=== PATIENT | female | born 1970 | race African-American/Black ===

== ENCOUNTER 2017-04-13 14:01 | Emergency (ER) | payer MEDICARE, MEDICAID ==
[~2017-04-13] VITALS: Ht 162.6 cm; Wt 72.6 kg
[~2017-04-13 14:01] MED LIST: ACETAMINOPHEN650 M2 GT; ATIVAN2 MG GT; COUMADIN7.5 MG GT; LACTULOSE20 GM/301 GT; MULTI-DELYN237 ML GT; OLANZAPINE10 MG GT; SERTRALINE HCL25 MG GT; TYLENOL325 MG ORAL; UTI-STAT L3875 MG/31 GT; ZYPREXA2.5 MG GT; ZYPREXA5 MG ORAL
[2017-04-13] MEDS ORDERED: Sodium Chloride 500ML 500 ML IV ONE (14:12)
[2017-04-13 15:05] VITALS: BP 108/67
[2017-04-13] MEDS ORDERED: D5 1/2NS 1,000 ML IV SCH (15:48)
[2017-04-13 15:49] LABS: BASOPHILS % (AUTO) 1.3 % (0.0-2.0); EOSINOPHILS % (AUTO) 11.5 % (0.0-3.0); HEMATOCRIT 39.1 % (37.0-47.0); HEMOGLOBIN 12.1 G/DL (12.0-16.0); LYMPHOCYTES % (AUTO) 21.6 % (20.0-45.0); MEAN CORPUSCULAR VOLUME 83 FL (80-99); MONOCYTES % (AUTO) 5.4 % (1.0-10.0); NEUTROPHILS % (AUTO) 60.3 % (45.0-75.0); PLATELET COUNT 297 K/UL (150-450); RED BLOOD COUNT 4.73 M/UL (4.20-5.40); RED CELL DISTRIBUTION WIDTH 13.9 % (11.6-14.8); WHITE BLOOD COUNT 8.2 K/UL (4.8-10.8)
[2017-04-13] MEDS ORDERED: LORazepam Inj 2mg/ml 1ml IV PRN (16:00)
[2017-04-13 16:03] LABS: ANION GAP 6 mmol/L (5-15); BLOOD UREA NITROGEN 11 mg/dL (7-18); CALCIUM 8.8 MG/DL (8.5-10.1); CARBON DIOXIDE 26 MMOL/L (21-32); CHLORIDE 104 MMOL/L (98-107); CREATININE 0.8 MG/DL (0.55-1.30); POTASSIUM 3.9 MMOL/L (3.5-5.1); SODIUM 136 MMOL/L (136-145)
[2017-04-13 16:09] LABS: ALANINE AMINOTRANSFERASE 23 U/L (12-78); ALBUMIN 3.1 G/DL (3.4-5.0); ALBUMIN/GLOBULIN RATIO 0.7 (1.0-2.7); ALKALINE PHOSPHATASE 73 U/L (46-116); ASPARTATE AMINO TRANSFERASE 14 U/L (15-37); BILIRUBIN,TOTAL 0.2 MG/DL (0.2-1.0)
--- NOTE | 2017-04-13 16:59 | GI Initial Consult Note ---
Malgorzata Willis N.PBatsheva 04/13/17 1659: History of Present Illness General Date patient seen: Apr 13, 2017 Time patient seen: 16:52 Reason for Hospitalization: Malfunctioning Gastric Tube Referring physician: NATHAN BE Reason for Consultation: GT MALFUNCTION Present Illness HPI BRIEF HISTORY: This is a 46-year-old female from [facility] presents today with GT malfunction and thus we were consulted. Currently, resting in bed and slightly confused. No complaint. NAD. GT assess , unable to flush. Unknown history when PEG was placed. No known history of colonoscopies. No leukocytosis. Hgb stable. Home Meds Reported Medications Olanzapine* (ZYPREXA*) 2.5 Mg Tablet, 2.5 MG GT DAILY, #30 TAB 0 Refills 02/28/14 Acetaminophen (Acetaminophen 8 Hour) 650 Mg Tablet, 650 MG GT Q6H, TAB 02/21/14 Sertraline Hcl* (SERTRALINE HCL*) 25 Mg Tablet, 5 MG GT DAILY, TAB 02/21/14 Multivitamin Liquid* (MULTI-DELYN*) 237 Ml Liquid, 5 ML GT DAILY, ML 02/21/14 Lactulose (LACTULOSE*) 20 Gm/30 Ml Solution, 30 ML GT TID, ML 0 Refills 02/21/14 Lorazepam* (ATIVAN*) 2 Mg Tablet, 2 MG GT Q6HR Y for Agitation, TAB 02/21/14 Med list reviewed/reconciled: Yes Allergies: Coded Allergies: No Known Allergies (Unverified , 02/21/14) Patient History Limited by: medical condition History Provided By: Medical Record PMH Narrative 1. Weakness. 2. Altered mental status. 3. Encephalopathy. 4. Lower extremity weakness. 5. Anemia. Social History: Denies: smoking, alcohol use, drug use, other Review of Systems All Other Systems: limited Physical Exam Vital Signs Date Time Temp Pulse Resp B/P (MAP) Pulse Ox O2 Delivery O2 Flow Rate FiO2 04/13/17 14:02 98.1 76 20 94/62 97 Room Air Labs Laboratory Tests Test 04/13/17 15:39 White Blood Count 8.2 K/UL (4.8-10.8) Red Blood Count 4.73 M/UL (4.20-5.40) Hemoglobin 12.1 G/DL (12.0-16.0) Hematocrit 39.1 % (37.0-47.0) Mean Corpuscular Volume 83 FL (80-99) Mean Corpuscular Hemoglobin 25.6 PG (27.0-31.0) L Mean Corpuscular Hemoglobin Concent 31.0 G/DL (32.0-36.0) L Red Cell Distribution Width 13.9 % (11.6-14.8) Platelet Count 297 K/UL (150-450) Mean Platelet Volume 7.1 FL (6.5-10.1) Neutrophils (%) (Auto) 60.3 % (45.0-75.0) Lymphocytes (%) (Auto) 21.6 % (20.0-45.0) Monocytes (%) (Auto) 5.4 % (1.0-10.0) Eosinophils (%) (Auto) 11.5 % (0.0-3.0) H Basophils (%) (Auto) 1.3 % (0.0-2.0) Prothrombin Time 10.0 SEC (9.30-11.50) Prothromb Time International Ratio 1.0 (0.9-1.1) Activated Partial Thromboplast Time 27 SEC (23-33) Sodium Level 136 MMOL/L (136-145) Potassium Level 3.9 MMOL/L (3.5-5.1) Chloride Level 104 MMOL/L (98-107) Carbon Dioxide Level 26 MMOL/L (21-32) Anion Gap 6 mmol/L (5-15) Blood Urea Nitrogen 11 mg/dL (7-18) Creatinine 0.8 MG/DL (0.55-1.30) Estimat Glomerular Filtration Rate > 60 mL/min (>60) Glucose Level 95 MG/DL (74-106) Calcium Level 8.8 MG/DL (8.5-10.1) Total Bilirubin 0.2 MG/DL (0.2-1.0) Aspartate Amino Transf (AST/SGOT) 14 U/L (15-37) L Alanine Aminotransferase (ALT/SGPT) 23 U/L (12-78) Alkaline Phosphatase 73 U/L (46-116) Total Protein 7.7 G/DL (6.4-8.2) Albumin 3.1 G/DL (3.4-5.0) L Globulin 4.6 g/dL Albumin/Globulin Ratio 0.7 (1.0-2.7) L Lipase 58 U/L (73-393) L General Appearance: well appearing, no apparent distress, alert, other - non verbal Head: normocephalic EENT: normal ENT inspection Neck: supple Respiratory: normal breath sounds, no respiratory distress Gastrointestinal: normal inspection, non tender, soft, gt - changed Rectal: deferred Genitourinary: no CVA tenderness Musculoskeletal: back normal Neurologic: alert, responsive Skin: normal inspection, normal color, no rash, warm/dry Lymphatic: normal inspection, no adenopathy Current Medications Current Medications Medications (Trade) Dose Ordered Sig/Sanju Route PRN Reason Start Time Stop Time Status Last Admin Dose Admin Dextrose (Dextrose 50%) STAT PRN IV Hypoglycemia 04/13/17 16:00 05/13/17 15:59 UNV Dextrose/Sodium Chloride 1,000 ml @ 50 mls/hr Q20H IV 04/13/17 15:48 05/13/17 15:47 UNV Heparin Sodium (Porcine) (Heparin 5000 units/ml) 5,000 units EVERY 12 HOURS SUBQ 04/13/17 21:00 05/13/17 20:59 UNV Lorazepam (Ativan 2mg/ml 1ml) 0.5 mg Q4H PRN IV For Anxiety 04/13/17 16:00 04/20/17 15:59 UNV Olanzapine (ZyPREXA) 2.5 mg DAILY GT 04/14/17 09:00 05/14/17 08:59 UNV Ondansetron HCl (Zofran) 4 mg Q6H PRN IVP Nausea & Vomiting 04/13/17 16:00 05/13/17 15:59 UNV Sertraline HCl (Zoloft) 5 mg DAILY GT 04/14/17 09:00 05/14/17 08:59 UNV Silver Nitrate (Silver Nitrate Applicators) 1 applic ONCE ONCE TOPIC 04/13/17 17:00 04/13/17 17:01 UNV GI: Plan Problems: (1) Gastrostomy tube dysfunction Plan GT changed with 20 fr at bedside in ED. nitrate sticks to cauterize hypergranulation around GT site GT site care daily/prn KUB + Gastrografin to confirm tube placement. okay to dc once confirmed via imaging study. Discussed with Dr. Hunter. Thank you for this patient referral, we will follow. MARQUISE HUNTER 04/14/17 1010: History of Present Illness General Reason for Hospitalization: Malfunctioning Gastric Tube Present Illness Home Meds Reported Medications Olanzapine* (ZYPREXA*) 2.5 Mg Tablet, 2.5 MG GT DAILY, #30 TAB 0 Refills 02/28/14 Acetaminophen (Acetaminophen 8 Hour) 650 Mg Tablet, 650 MG GT Q6H, TAB 02/21/14 Sertraline Hcl* (SERTRALINE HCL*) 25 Mg Tablet, 5 MG GT DAILY, TAB 02/21/14 Multivitamin Liquid* (MULTI-DELYN*) 237 Ml Liquid, 5 ML GT DAILY, ML 02/21/14 Lactulose (LACTULOSE*) 20 Gm/30 Ml Solution, 30 ML GT TID, ML 0 Refills 02/21/14 Lorazepam* (ATIVAN*) 2 Mg Tablet, 2 MG GT Q6HR Y for Agitation, TAB 02/21/14 Allergies: Coded Allergies: No Known Allergies (Unverified , 02/21/14) Patient History Social History Narrative The patient was seen and examined at bedside and all new and available data was reviewed in the patients chart. I agree with the above findings, impression and plan. (Patient seen earlier today. Signature stamp does not reflect patient encounter time.). - MD Alba Marin,[facility] Simon N.P. Apr 13, 2017 16:59 MARQUISE HUNTER Apr 14, 2017 10:10
[2017-04-13] MEDS ORDERED: Silver Nitrate Stick TOPIC ONE (17:00)
[2017-04-13 17:26] VITALS: BP 90/60
--- NOTE | 2017-04-13 17:49 | Emergency Room Report ---
History of Present Illness General Chief Complaint: Malfunctioning Gastric Tube Source: Medical Record Present Illness HPI 46-year-old female presents to ED for evaluation. Per EMS patient noted to have a malfunctioning G-tube. Unable to flush. Noticed by nursing staff today. Patient has encephalopathy. Unable to provide any additional history at this time. No signs of distress upon arrival. No fevers or chills. No nausea or vomiting. No other aggravating relieving factors. No other associated symptoms Allergies: Coded Allergies: No Known Allergies (Unverified , 02/21/14) Patient History Past Medical History: other - encephalopathy Past Surgical History: other - Gtube Pertinent Family History: none Social History: Denies: smoking, alcohol use, drug use Now: No Immunizations: UTD Reviewed Nursing Documentation: PMH: Agreed, PSxH: Agreed Nursing Documentation-PMH Past Medical History: No History, Except For Hx Gastrointestinal Problems: Yes - GASTROSTOMY TUBE PLACEMENT Hx Neurological Problems: Yes - ENCEPHALOPATHY Hx Weakness: Yes Review of Systems All Other Systems: limited Physical Exam Vital Signs Date Time Temp Pulse Resp B/P (MAP) Pulse Ox O2 Delivery O2 Flow Rate FiO2 04/13/17 14:02 98.1 76 20 94/62 97 Room Air Sp02 EP Interpretation: reviewed, normal General Appearance: GCS 15, non-toxic, other - encephalopathy Head: normocephalic Eyes: bilateral eye normal inspection, bilateral eye PERRL ENT: normal ENT inspection Neck: normal inspection Respiratory: chest non-tender, lungs clear, normal breath sounds, speaking full sentences Cardiovascular #1: regular rate, rhythm, no edema Gastrointestinal: normal bowel sounds, non tender, soft, non-distended, no guarding, no rebound, other - Gtube site C/D/I Rectal: deferred Genitourinary: no CVA tenderness Musculoskeletal: normal inspection Neurologic: other - encephalopathy Psychiatric: other - encephalopathy Skin: normal inspection Lymphatic: normal inspection Medical Decision Making Diagnostic Impression: Primary Impression: Malfunction of gastrostomy tube ER Course Hospital Course 46-year-old female presents to ED for G-tube placement. Clinical course Patient placed on stretcher. After initial history and physical I was unable to successfully replaced G-tube myself. Labs were drawn which were unremarkable GI was consulted and they came to change the G-tube at bedside. KUB confirmed G -tube placement Dr Be made aware that G-tube was successfully replaced and patient return to facility Diagnosis - malfunction of G tube stable and discharged back to facility. Followup with PMD. Return to ED if symptoms recur or worsen Labs Test 04/13/17 15:39 White Blood Count 8.2 K/UL (4.8-10.8) Red Blood Count 4.73 M/UL (4.20-5.40) Hemoglobin 12.1 G/DL (12.0-16.0) Hematocrit 39.1 % (37.0-47.0) Mean Corpuscular Volume 83 FL (80-99) Mean Corpuscular Hemoglobin 25.6 PG (27.0-31.0) Mean Corpuscular Hemoglobin Concent 31.0 G/DL (32.0-36.0) Red Cell Distribution Width 13.9 % (11.6-14.8) Platelet Count 297 K/UL (150-450) Mean Platelet Volume 7.1 FL (6.5-10.1) Neutrophils (%) (Auto) 60.3 % (45.0-75.0) Lymphocytes (%) (Auto) 21.6 % (20.0-45.0) Monocytes (%) (Auto) 5.4 % (1.0-10.0) Eosinophils (%) (Auto) 11.5 % (0.0-3.0) Basophils (%) (Auto) 1.3 % (0.0-2.0) Prothrombin Time 10.0 SEC (9.30-11.50) Prothromb Time International Ratio 1.0 (0.9-1.1) Activated Partial Thromboplast Time 27 SEC (23-33) Sodium Level 136 MMOL/L (136-145) Potassium Level 3.9 MMOL/L (3.5-5.1) Chloride Level 104 MMOL/L (98-107) Carbon Dioxide Level 26 MMOL/L (21-32) Anion Gap 6 mmol/L (5-15) Blood Urea Nitrogen 11 mg/dL (7-18) Creatinine 0.8 MG/DL (0.55-1.30) Estimat Glomerular Filtration Rate > 60 mL/min (>60) Glucose Level 95 MG/DL (74-106) Calcium Level 8.8 MG/DL (8.5-10.1) Total Bilirubin 0.2 MG/DL (0.2-1.0) Aspartate Amino Transf (AST/SGOT) 14 U/L (15-37) Alanine Aminotransferase (ALT/SGPT) 23 U/L (12-78) Alkaline Phosphatase 73 U/L (46-116) Total Protein 7.7 G/DL (6.4-8.2) Albumin 3.1 G/DL (3.4-5.0) Globulin 4.6 g/dL Albumin/Globulin Ratio 0.7 (1.0-2.7) Lipase 58 U/L (73-393) Other X-Ray Diagnostic Results Other X-Ray Diagnostic Results : X-Ray ordered: KUB # of Views/Limited Vs Complete: 1 View Indication: Pain EP Interpretation: Yes Interpretation: nonspecific bowel gas, no sbo, other - Gtube in place. no contrast extravasation Impression: Other - Gtube in place Last Vital Signs Date Time Temp Pulse Resp B/P (MAP) Pulse Ox O2 Delivery O2 Flow Rate FiO2 04/13/17 17:26 98.2 73 17 90/60 99 Room Air Status: improved Disposition: XFER SNF Condition: Stable Referrals: NATHAN BE (PCP) Patient Instructions: Gastrostomy Tube Home Guide, Adult KENNETH CENTENO M.D. Apr 13, 2017 17:49
[2017-04-13 19:37] VITALS: BP 128/66
[2017-04-13] MEDS ORDERED: Heparin 5000 units/ml inj SUBQ SCH (21:00)
--- NOTE | 2017-04-13 22:00 | History and Physical Report ---
DATE OF ADMISSION: 04/13/2017 TIME SEEN: 3 p.m. CONSULTANTS: 1. Bora Nolen M.D. 2. Sivan Banks M.D. 3. George Allen M.D. 4. Buzz Stockton M.D. CHIEF COMPLAINT: G-tube malfunction, encephalopathy, weakness, and confusion. BRIEF HISTORY: The patient is a 46-year-old female from [facility] presented with the above-mentioned diagnoses. She has a GJ-tube that we are unable to replace. The patient is in the ER [facility], currently awaiting admission. Currently, calm, slightly confused in bed, and not talking much. PAST MEDICAL HISTORY: Weakness, altered mental status, and bipolar. PAST SURGICAL HISTORY: Unknown. MEDICATIONS: IV fluids now, we will obtain list shortly. ALLERGIES: Denies. SOCIAL HISTORY: No smoking, no alcohol, and no intravenous drug abuse. FAMILY HISTORY: Noncontributory. REVIEW OF SYSTEMS: Unavailable. PHYSICAL EXAMINATION: GENERAL: Calm in bed, refusing to answer questions. VITAL SIGNS: Temperature is 98 degrees, pulse 69, respirations 19, and blood pressure 108/67. CARDIOVASCULAR: No murmur. LUNGS: Poor air exchange. ABDOMEN: Bowel sounds are positive. Nontender and nondistended. EXTREMITIES: No cyanosis, clubbing, or edema. NEUROLOGIC: The patient moves all extremities, slightly weak. LABORATORY DATA: Labs are pending. ASSESSMENT: 1. Gastrostomy tube malfunction. 2. Encephalopathy. 3. Weakness. 4. Altered mental status. PLAN: 1. Continue premedications. 2. OT, PT, and dietary evaluation. 3. CBC and BMP in the morning. 4. Psychiatry evaluation. 5. Dr. Nolen, Dr. Banks, Dr. Allen, and Dr. Stockton to consult. Jose L Mcginnis D.O. DR: HERMINIO JOB#: [id number] CC:
--- NOTE | 2017-04-13 22:00 | History and Physical Report ---
DATE OF ADMISSION: 04/13/2017 TIME SEEN: 3 p.m. CONSULTANTS: 1. Bora Nolen M.D. 2. Sivan Banks M.D. 3. George Allen M.D. 4. Buzz Stockton M.D. CHIEF COMPLAINT: G-tube malfunction, encephalopathy, weakness, and confusion. BRIEF HISTORY: The patient is a 46-year-old female from [facility] presented with the above-mentioned diagnoses. She has a GJ-tube that we are unable to replace. The patient is in the ER [facility], currently awaiting admission. Currently, calm, slightly confused in bed, and not talking much. PAST MEDICAL HISTORY: Weakness, altered mental status, and bipolar. PAST SURGICAL HISTORY: Unknown. MEDICATIONS: IV fluids now, we will obtain list shortly. ALLERGIES: Denies. SOCIAL HISTORY: No smoking, no alcohol, and no intravenous drug abuse. FAMILY HISTORY: Noncontributory. REVIEW OF SYSTEMS: Unavailable. PHYSICAL EXAMINATION: GENERAL: Calm in bed, refusing to answer questions. VITAL SIGNS: Temperature is 98 degrees, pulse 69, respirations 19, and blood pressure 108/67. CARDIOVASCULAR: No murmur. LUNGS: Poor air exchange. ABDOMEN: Bowel sounds are positive. Nontender and nondistended. EXTREMITIES: No cyanosis, clubbing, or edema. NEUROLOGIC: The patient moves all extremities, slightly weak. LABORATORY DATA: Labs are pending. ASSESSMENT: 1. Gastrostomy tube malfunction. 2. Encephalopathy. 3. Weakness. 4. Altered mental status. PLAN: 1. Continue premedications. 2. OT, PT, and dietary evaluation. 3. CBC and BMP in the morning. 4. Psychiatry evaluation. 5. Dr. Nolen, Dr. Banks, Dr. Allen, and Dr. Stockton to consult. Jose L Mcginnis D.O. DR: HERMINIO JOB#: [id number] CC:
--- NOTE | 2017-04-13 22:00 | History and Physical Report ---
DATE OF ADMISSION: 04/13/2017 TIME SEEN: 3 p.m. CONSULTANTS: 1. Bora Nolen M.D. 2. Sivan Banks M.D. 3. George Allen M.D. 4. Buzz Stockton M.D. CHIEF COMPLAINT: G-tube malfunction, encephalopathy, weakness, and confusion. BRIEF HISTORY: The patient is a 46-year-old female from [facility] presented with the above-mentioned diagnoses. She has a GJ-tube that we are unable to replace. The patient is in the ER [facility], currently awaiting admission. Currently, calm, slightly confused in bed, and not talking much. PAST MEDICAL HISTORY: Weakness, altered mental status, and bipolar. PAST SURGICAL HISTORY: Unknown. MEDICATIONS: IV fluids now, we will obtain list shortly. ALLERGIES: Denies. SOCIAL HISTORY: No smoking, no alcohol, and no intravenous drug abuse. FAMILY HISTORY: Noncontributory. REVIEW OF SYSTEMS: Unavailable. PHYSICAL EXAMINATION: GENERAL: Calm in bed, refusing to answer questions. VITAL SIGNS: Temperature is 98 degrees, pulse 69, respirations 19, and blood pressure 108/67. CARDIOVASCULAR: No murmur. LUNGS: Poor air exchange. ABDOMEN: Bowel sounds are positive. Nontender and nondistended. EXTREMITIES: No cyanosis, clubbing, or edema. NEUROLOGIC: The patient moves all extremities, slightly weak. LABORATORY DATA: Labs are pending. ASSESSMENT: 1. Gastrostomy tube malfunction. 2. Encephalopathy. 3. Weakness. 4. Altered mental status. PLAN: 1. Continue premedications. 2. OT, PT, and dietary evaluation. 3. CBC and BMP in the morning. 4. Psychiatry evaluation. 5. Dr. Nolen, Dr. Banks, Dr. Allen, and Dr. Stockton to consult. Jose L Mcginnis D.O. DR: HERMINIO JOB#: [id number] CC:
[2017-04-14] MEDS ORDERED: OLANZapine 2.5mg tab GT SCH (09:00)
[2017-04-14] MEDS ORDERED: Sertraline 50mg tab GT SCH (09:00)
--- NOTE | 2017-04-14 12:05 | Diagnostic Imaging Report ---
Indication: Gastrostomy check Comparison: None Single view of the abdomen obtained Findings: Contrast noted in the stomach. The balloon is in the mid part of the stomach. There is no contrast leak outside of the stomach or duodenum. Impression: Unremarkable gastrostomy
== END 2017-04-13 19:30 ==
LOC: EDBD 14:01 → EMR 14:49 → CANBEDREQ 17:21 → EMR 19:30
DX: K94.23 Gastrostomy malfunction (principal); Y83.3 Surgical operation with formation of external stoma as the cause of abnormal reaction of the patient, or of later complication, without mention of misadventure at the time of the procedure; G93.40 Encephalopathy, unspecified
CPT/HCPCS: 36415; 43760; 74000; 80053; 83690; 85025; 85610; 85730; 86850; 86900; 86901; 96361; 96365; 96366; 96372; 96375; 99284; J7040

== ENCOUNTER 2017-06-16 19:58 | Inpatient (IN) | payer MEDICARE, MEDICAID ==
[~2017-06-16] VITALS: Ht 162.6 cm; Wt 77.1 kg
--- NOTE | 2017-06-16 21:26 | Emergency Room Report ---
History of Present Illness General Chief Complaint: Malfunctioning Gastric Tube Source: Patient, Medical Record, EMS Present Illness HPI 46-year-old female, history of depression, paranoid schizophrenia, here for G- tube replacement. Reportedly patient pulled out her G-tube. Patient is very angry, alert, oriented to person and place, not cooperating with history. Only stating that she does not want you to put it a G tube and that she will pull it out again if it is placed. not providing any other history. Allergies: Coded Allergies: No Known Allergies (Unverified , 02/21/14) Patient History Past Medical History: see triage record Past Surgical History: unable to obtain Pertinent Family History: unable to obtain Now: No Reviewed Nursing Documentation: PMH: Agreed, PSxH: Agreed Nursing Documentation-PMH Past Medical History: No History, Except For Hx Gastrointestinal Problems: Yes - GASTROSTOMY TUBE, DYSPHAGIA, GERD Hx Neurological Problems: Yes - ENCEPHALOPATHY Hx Weakness: Yes Review of Systems All Other Systems: negative except mentioned in HPI Physical Exam Vital Signs Date Time Temp Pulse Resp B/P (MAP) Pulse Ox O2 Delivery O2 Flow Rate FiO2 06/16/17 19:54 99.7 108 20 114/67 97 Room Air Sp02 EP Interpretation: reviewed, normal General Appearance: alert, non-toxic, mild distress Head: normocephalic, atraumatic Eyes: bilateral eye normal inspection, bilateral eye PERRL, bilateral eye EOMI ENT: normal ENT inspection, normal pharynx, normal voice, moist mucus membranes Neck: normal inspection, full range of motion, supple Respiratory: normal inspection, lungs clear, normal breath sounds, no respiratory distress, no retraction, no wheezing, speaking full sentences, chest symmetrical Cardiovascular #1: normal inspection, regular rate, rhythm, no edema, normal capillary refill Cardiovascular #2: 2+ radial (R), 2+ radial (L) Gastrointestinal: other - G tube stoma without g tube in place. nontender abdomen Musculoskeletal: normal inspection, back normal, normal range of motion, non- tender Neurologic: other - awake and alert, moves all four ext spont Psychiatric: depressed affect Skin: normal inspection, normal color, no rash, warm/dry, well hydrated, normal turgor Medical Decision Making Diagnostic Impression: Primary Impression: Malfunction of gastrostomy tube ER Course 46-year-old female here for G-tube replacement DDX: G-tube replacement Plan: G-tube replacement ER course: Patient has been monitored during ED stay, HD stable Patient is refusing a G-tube replacement, states that she will pull it out. Will admit to medicine also refusing labs Disposition: Patient is to be admitted to [facility] D/W hospitalist Dr Be Please note that this Emergency Department Report was dictated using [employer] support worker technology software, occasionally this can lead to erroneous entry secondary to interpretation by the dictation equipment. Last Vital Signs Date Time Temp Pulse Resp B/P (MAP) Pulse Ox O2 Delivery O2 Flow Rate FiO2 06/16/17 19:54 99.7 108 20 114/67 97 Room Air Disposition: ADMITTED INPATIENT Condition: Serious Referrals: NATHAN BE (PCP) Eliot Jj M.D. Jun 16, 2017 21:26
[2017-06-16 21:49] VITALS: BP 118/70
[2017-06-16] MEDS ORDERED: Morphine Sulfate 2mg/ml Inj IVP PRN (22:00)
[2017-06-16] MEDS ORDERED: Mylanta II UD 30ml ORAL PRN (22:00)
[2017-06-16] MEDS ORDERED: LORazepam Inj 2mg/ml 1ml IV PRN (22:00)
[2017-06-16] MEDS ORDERED: Miralax 17gm pkt ORAL PRN (22:00)
[2017-06-16] MEDS ORDERED: Nitroglycerin Subl 0.4mg tab SL PRN (22:00)
[2017-06-17] MEDS: D5 1/2NS 1,000 ML IV SCH ×2 (01:52→15:12)
[2017-06-17] MEDS: Pantoprazole Inj IV SCH (09:00)
[2017-06-17] MEDS ORDERED: OLANZapine 2.5mg tab GT SCH (09:00)
[2017-06-17] MEDS: Heparin 5000 units/ml inj SUBQ SCH ×2 (09:00→20:44)
--- NOTE | 2017-06-17 10:37 | Consultation ---
History of Present Illness General Date patient seen: Jun 17, 2017 Chief Complaint: Malfunctioning Gastric Tube Reason for Consultation: inpatient management Present Illness HPI 46-year-old female with hx of depression, paranoid schizophrenia,muliple sclerosis, brought in for G-tube replacement. Reportedly patient pulled out her G-tube. Patient is very angry, alert, oriented to person and place, not cooperating with history. Only stating that she does not want you to put it a G tube and that she will pull it out again if it is placed. not providing any other history. Allergies: Coded Allergies: No Known Allergies (Unverified , 02/21/14) Medication History Scheduled Acetaminophen (Acetaminophen 8 Hour), 650 MG GT Q6H, (Reported) Lactulose (Lactulose*), 30 ML GT TID, (Reported) Multivitamin Liquid* (Multi-Delyn*), 5 ML GT DAILY, (Reported) Olanzapine* (Zyprexa*), 2.5 MG GT DAILY, (Reported) Sertraline Hcl* (Sertraline Hcl*), 5 MG GT DAILY, (Reported) Scheduled PRN Lorazepam* (Ativan*), 2 MG GT Q6HR PRN for Agitation, (Reported) Patient History Healthcare decision maker Resuscitation status Full Code Advanced Directive on File Past Medical/Surgical History Past Medical/Surgical History: (1) Affective bipolar disorder (2) probably multiple sclerosis Review of Systems All Other Systems: negative except mentioned in HPI Physical Exam General Appearance: WD/WN Lines, tubes and drains: peripheral HEENT: normocephalic, atraumatic Neck: non-tender, normal alignment Respiratory/Chest: chest wall non-tender, lungs clear, normal breath sounds Breasts: no masses Cardiovascular/Chest: normal rate Abdomen: normal bowel sounds, non tender Genitourinary/Rectal: normal genital exam, heme negative stool Extremities: normal range of motion, non-tender Last 24 Hour Vital Signs Date Time Temp Pulse Resp B/P (MAP) Pulse Ox O2 Delivery O2 Flow Rate FiO2 06/17/17 01:50 98.8 98 16 118/70 98 Room Air 06/16/17 21:49 98.8 98 16 118/70 98 Room Air 06/16/17 19:54 99.7 108 20 114/67 97 Room Air Intake and Output 06/16/17 06/17/17 19:00 07:00 Intake Total 0 ml Balance 0 ml Intake Oral 0 ml # Voids 2 Height (Feet): 5 Height (Inches): 4.00 Weight (Pounds): 170 Medications Current Medications Medications (Trade) Dose Ordered Sig/Sanju Route PRN Reason Start Time Stop Time Status Last Admin Dose Admin Acetaminophen (Tylenol) 650 mg Q4H PRN ORAL fever 06/16/17 22:00 07/16/17 21:59 Al Hydroxide/Mg Hydroxide (Mylanta II) 30 ml Q6H PRN ORAL dyspepsia 06/16/17 22:00 07/16/17 21:59 Dextrose (Dextrose 50%) STAT PRN IV Hypoglycemia 06/16/17 22:00 07/16/17 21:59 Dextrose/Sodium Chloride 1,000 ml @ 75 mls/hr [id number] IV 06/17/17 01:52 07/17/17 01:51 Diphenhydramine HCl (Benadryl) 25 mg Q6H PRN ORAL Itching/Pruritis 06/16/17 22:00 07/16/17 21:59 Heparin Sodium (Porcine) (Heparin 5000 units/ml) 5,000 units EVERY 12 HOURS SUBQ 06/17/17 09:00 07/17/17 08:59 UNV Lorazepam (Ativan 2mg/ml 1ml) 1 mg Q4H PRN IV agitation 06/16/17 22:00 06/23/17 21:59 Morphine Sulfate (Morphine Sulfate) 2 mg Q4H PRN IVP severe Pain (Pain Scale 7-10) 06/16/17 22:00 06/23/17 21:59 Nitroglycerin (Ntg) 0.4 mg Q5M X 3 DOSES PRN SL Prn Chest Pain 06/16/17 22:00 07/16/17 21:59 Olanzapine (ZyPREXA) 2.5 mg DAILY GT 06/17/17 09:00 07/17/17 08:59 Ondansetron HCl (Zofran) 4 mg Q6H PRN IVP Nausea & Vomiting 06/16/17 22:00 07/16/17 21:59 Pantoprazole (Protonix) 40 mg DAILY IV 06/17/17 09:00 07/17/17 08:59 Polyethylene Glycol (Miralax) 17 gm HSPRN PRN ORAL Constipation 06/16/17 22:00 07/16/17 21:59 Promethazine HCl (Phenergan) 25 mg Q8H PRN IV refractory nausea 06/16/17 22:00 07/16/17 21:59 Temazepam (Restoril) 15 mg HSPRN PRN ORAL Insomnia 06/16/17 22:00 06/23/17 21:59 Assessment/Plan Problem List: (1) Malfunction of gastrostomy tube ICD Codes: K94.23 - Gastrostomy malfunction SNOMED: 033200641 (2) Affective bipolar disorder ICD Codes: F31.9 - Affective bipolar disorder SNOMED: 33015414 (3) probably multiple sclerosis Assessment/Plan iv fluids symptomatic treatment check electrolytes swallow study psych and neuro evaluation. ANGE PAZ Jun 17, 2017 10:37
--- NOTE | 2017-06-17 14:45 | History and Physical Report ---
DATE OF ADMISSION: 06/16/2017 APPROXIMATE TIME: 7 a.m. CONSULTANTS: 1. George Allen M.D. 2. Bora Nolen M.D. 3. Sivan Banks M.D. CHIEF COMPLAINT: G-tube malfunction. BRIEF HISTORY: The patient is a 46-year-old female from [facility] with history of encephalopathy and G-tube, had G-tube malfunction came in to the ER. Per the ER doctor, was unable to reinserted G-tube. The patient was admitted to medical floor for further treatment. Currently, sleepy in bed, confused, not talking much. PAST MEDICAL HISTORY: Weakness, altered mental status, possible MS, encephalopathy, and bipolar. PAST SURGICAL HISTORY: G-tube. MEDICATIONS: Zyprexa, heparin, Protonix, Tylenol, morphine, MiraLAX, Zofran, Restoril, Benadryl, nitroglycerin, Mylanta, Phenergan and Ativan. ALLERGIES: Denies. SOCIAL HISTORY: No smoking. No alcohol. No intravenous drug abuse. FAMILY HISTORY: Noncontributory. REVIEW OF SYSTEMS: Unavailable. PHYSICAL EXAMINATION: GENERAL: Sleeping in bed, refusing to answer questions. VITAL SIGNS: Temperature is 98 degrees, pulse 98, respirations 16, and blood pressure 118/70. CARDIOVASCULAR: No murmur. LUNGS: Clear. ABDOMEN: Bowel sounds distant. EXTREMITIES: No cyanosis, clubbing, or edema. NEUROLOGIC: The patient moves all extremities, slightly weak. LABORATORY AND DIAGNOSTIC DATA: Laboratories are pending. ASSESSMENT: 1. Gastrostomy tube malfunction. 2. Psychiatric history. 3. Weakness. 4. Encephalopathy. 5. Bipolar. PLAN: 1. Continue pre-medications. 2. OT/ PT. 3. Dietary evaluation. 4. CBC and BMP in the morning. 5. Dr. Nolen, Dr. Allen, and Dr. Banks to consult. 6. We will continue to follow this patient. Jose L Mcginnis D.O. DR: KAUSHAL JOB#: [id number] CC:
[2017-06-17] MEDS: Haloperidol Decanoate 50mg Inj IM SCH (18:27)
[2017-06-18] VITALS (9 sets, daily range): BP systolic 102–123; BP diastolic 64–82
[2017-06-18] MEDS ORDERED: LORazepam Inj 2mg/ml 1ml IM ONE (01:45)
[2017-06-18] MEDS ORDERED: Haloperidol 5mg/ml Inj IM ONE (01:45)
[2017-06-18] MEDS ORDERED: DiphenhydrAMINE 50mg/ml Inj IM ONE (01:45)
[2017-06-18] MEDS: D5 1/2NS 1,000 ML IV SCH ×2 (02:50→16:12)
--- NOTE | 2017-06-18 04:00 | Consultation ---
DATE OF CONSULTATION: 06/17/2017 NOTE: POOR AUDIO CONSULTING PHYSICIAN: Sivan Banks M.D. HISTORY OF PRESENT ILLNESS: The patient is a 46-year-old female patient with G-tube malfunction. She is confused and some disorganized thought process and mood lability. She has no logical plan for her own self-care. She has got feelings of helplessness, hopelessness, low energy, poor appetite, and lost of interest in activity. She does have some agitation and irritability and has no logical plan for her own self-care. She came in to [facility] secondary to G-tube malfunction, transferred from a [facility]. However, she has been very agitated, refusing care, refusing medications, and is very agitated with staff and was trying to and that is why a psychiatric consultation was ordered. The patient's cognition has declined below baseline psychotropic medications. In addition, she normally takes mostly through the G-tube. ALLERGIES: No known drug allergies. SOCIAL HISTORY: She has currently living in [facility]. Financially supported by [facility] and Medicare. SUBSTANCE ABUSE HISTORY: Denies drug and alcohol use. PSYCHIATRIC HISTORY: Paranoid schizophrenia. She has had multiple psychiatric admissions. MENTAL STATUS EXAMINATION: The patient is a 46-year-old female irritable, agitated. Affect guarded and restricted. . Mood depressed, anxious. Motor activity, psychomotor agitation. Attention span is poor. Orientation x2. Speech is pressured. Thought process disorganized and illogical. Thought content, auditory hallucinations and paranoid delusions. Insight and judgment is poor. . DIAGNOSIS: Paranoid schizophrenia with acute exacerbation. PLAN: My plan is to treat her with Zyprexa 5 mg per G-tube twice a day. Once the G-tube . I am going to start this patient on Haldol Decanoate 50 mg IM q.2 weeks. Treated this patient before with symptoms or side effects previously and she will continue to be followed by Psychiatry throughout hospital course. Chart reviewed and discussed with staff. I would like to thank, Dr. Jose L Mcginnis, for this interesting consultation. Sivan Banks M.D. DR: KRIS JOB#: [id number] CC:
--- NOTE | 2017-06-18 07:57 | General Progress Note ---
Assessment/Plan Problem List: (1) Episode of generalized weakness ICD Codes: R53.1 - Weakness SNOMED: 47162877 (2) Altered mental status ICD Codes: R41.82 - Altered mental status, unspecified SNOMED: 065980149 (3) Gastrostomy tube dysfunction ICD Codes: K94.23 - Gastrostomy malfunction SNOMED: 092491741 (4) Affective bipolar disorder ICD Codes: F31.9 - Affective bipolar disorder SNOMED: 75744154 (5) probably multiple sclerosis Status: unchanged Assessment/Plan ot pt diet gi f/u psyc tx cbc bmp am Subjective Constitutional: Reports: weakness Allergies: Coded Allergies: No Known Allergies (Unverified , 02/21/14) All Systems: reviewed and negative except above Subjective sleepy calm Objective Last 24 Hour Vital Signs Date Time Temp Pulse Resp B/P (MAP) Pulse Ox O2 Delivery O2 Flow Rate FiO2 06/18/17 03:05 97.0 89 18 102/72 95 Room Air 06/18/17 03:00 97.0 89 18 102/72 95 Room Air 06/18/17 02:30 97.5 91 18 105/74 96 Room Air 06/18/17 02:15 97.5 93 18 109/75 96 Room Air 06/18/17 02:00 97.7 110 18 123/82 96 Room Air Intake and Output 06/17/17 06/18/17 19:00 07:00 Intake Total 0 ml 300 ml Balance 0 ml 300 ml Intake Oral 0 ml IV Total 300 ml # Voids 6 2 Height (Feet): 5 Height (Inches): 4.00 Weight (Pounds): 170 General Appearance: lethargic EENT: normal ENT inspection Neck: normal alignment Cardiovascular: normal peripheral pulses, normal rate, regular rhythm Respiratory/Chest: chest wall non-tender, lungs clear, normal breath sounds Abdomen: normal bowel sounds, non tender, soft Extremities: normal inspection Edema: no edema noted Arm (L), no edema noted Arm (R), no edema noted Leg (L), no edema noted Leg (R), no edema noted Pedal (L), no edema noted Pedal (R), no edema noted Generalized Neurologic: motor weakness Skin: normal pigmentation, warm/dry NATHAN BE Jun 18, 2017 07:57
[2017-06-18 08:29] LABS: BASOPHILS % (AUTO) 1.2 % (0.0-2.0); EOSINOPHILS % (AUTO) 5.4 % (0.0-3.0); HEMATOCRIT 34.3 % (37.0-47.0); HEMOGLOBIN 11.5 G/DL (12.0-16.0); MEAN CORPUSCULAR VOLUME 81 FL (80-99); MONOCYTES % (AUTO) 7.8 % (1.0-10.0); NEUTROPHILS % (AUTO) 57.7 % (45.0-75.0); PLATELET COUNT 371 K/UL (150-450); RED BLOOD COUNT 4.27 M/UL (4.20-5.40); RED CELL DISTRIBUTION WIDTH 13.5 % (11.6-14.8); WHITE BLOOD COUNT 9.5 K/UL (4.8-10.8)
[2017-06-18 08:47] LABS: ANION GAP 9 mmol/L (5-15); BLOOD UREA NITROGEN 12 mg/dL (7-18); CALCIUM 8.7 MG/DL (8.5-10.1); CARBON DIOXIDE 25 MMOL/L (21-32); CHLORIDE 104 MMOL/L (98-107); CREATININE 0.7 MG/DL (0.55-1.30); POTASSIUM 3.4 MMOL/L (3.5-5.1); SODIUM 138 MMOL/L (136-145)
[2017-06-18] MEDS: Heparin 5000 units/ml inj SUBQ SCH ×2 (09:00→20:18)
[2017-06-18] MEDS: Pantoprazole Inj IV SCH (09:00)
--- NOTE | 2017-06-18 11:15 | Pulmonology Progress Note ---
Assessment/Plan Problems: (1) Malfunction of gastrostomy tube (2) Affective bipolar disorder (3) probably multiple sclerosis Assessment/Plan swallow evaluation check electrolytes psych evaluation. GI f/u dvt prophylaxis symptomatic treatment. Subjective ROS Limited/Unobtainable: No Constitutional: Reports: no symptoms HEENT: Repors: no symptoms Respiratory: Reports: no symptoms Cardiovascular: Reports: no symptoms Gastrointestinal/Abdominal: Reports: no symptoms Allergies: Coded Allergies: No Known Allergies (Unverified , 02/21/14) Objective Last 24 Hour Vital Signs Date Time Temp Pulse Resp B/P (MAP) Pulse Ox O2 Delivery O2 Flow Rate FiO2 06/18/17 08:00 98.2 78 20 113/80 96 06/18/17 03:05 97.0 89 18 102/72 95 Room Air 06/18/17 03:00 97.0 89 18 102/72 95 Room Air 06/18/17 02:30 97.5 91 18 105/74 96 Room Air 06/18/17 02:15 97.5 93 18 109/75 96 Room Air 06/18/17 02:00 97.7 110 18 123/82 96 Room Air Intake and Output 06/17/17 06/18/17 19:00 07:00 Intake Total 0 ml 300 ml Balance 0 ml 300 ml Intake Oral 0 ml IV Total 300 ml # Voids 6 2 Objective General Appearance: WD/WN HEENT: normocephalic, atraumatic Respiratory/Chest: chest wall non-tender, lungs clear Cardiovascular: normal peripheral pulses, normal rate Abdomen: normal bowel sounds, soft, non tender Genitourinary: normal external genitalia Extremities: no cyanosis Lymphatic: no neck adenopathy General Appearance: WD/WN HEENT: normocephalic, atraumatic Laboratory Tests 06/18/17 07:05: White Blood Count 9.5, Red Blood Count 4.27, Hemoglobin 11.5L, Hematocrit 34.3L , Mean Corpuscular Volume 81, Mean Corpuscular Hemoglobin 27.0, Mean Corpuscular Hemoglobin Concent 33.5, Red Cell Distribution Width 13.5, Platelet Count 371, Mean Platelet Volume 7.4, Neutrophils (%) (Auto) 57.7, Lymphocytes (% ) (Auto) 28.0, Monocytes (%) (Auto) 7.8, Eosinophils (%) (Auto) 5.4H, Basophils (%) (Auto) 1.2, Sodium Level 138, Potassium Level 3.4L, Chloride Level 104, Carbon Dioxide Level 25, Anion Gap 9, Blood Urea Nitrogen 12, Creatinine 0.7, Estimat Glomerular Filtration Rate > 60, Glucose Level 92, Calcium Level 8.7 Current Medications Medications (Trade) Dose Ordered Sig/Sanju Route PRN Reason Start Time Stop Time Status Last Admin Dose Admin Acetaminophen (Tylenol) 650 mg Q4H PRN ORAL fever 06/16/17 22:00 07/16/17 21:59 Al Hydroxide/Mg Hydroxide (Mylanta II) 30 ml Q6H PRN ORAL dyspepsia 06/16/17 22:00 07/16/17 21:59 Dextrose (Dextrose 50%) STAT PRN IV Hypoglycemia 06/16/17 22:00 07/16/17 21:59 Dextrose/Sodium Chloride 1,000 ml @ 75 mls/hr [id number] IV 06/17/17 01:52 07/17/17 01:51 06/18/17 02:50 Diphenhydramine HCl (Benadryl) 25 mg Q6H PRN ORAL Itching/Pruritis 06/16/17 22:00 07/16/17 21:59 Haloperidol Decanoate (Haldol) 50 mg [id number] IM 06/17/17 18:00 07/17/17 17:59 06/17/17 18:27 Heparin Sodium (Porcine) (Heparin 5000 units/ml) 5,000 units EVERY 12 HOURS SUBQ 06/17/17 09:00 07/17/17 08:59 Lorazepam (Ativan 2mg/ml 1ml) 1 mg Q4H PRN IV agitation 06/16/17 22:00 06/23/17 21:59 Morphine Sulfate (Morphine Sulfate) 2 mg Q4H PRN IVP severe Pain (Pain Scale 7-10) 06/16/17 22:00 06/23/17 21:59 Nitroglycerin (Ntg) 0.4 mg Q5M X 3 DOSES PRN SL Prn Chest Pain 06/16/17 22:00 07/16/17 21:59 Olanzapine (ZyPREXA) 5 mg BID GT 06/17/17 18:00 07/17/17 08:59 Ondansetron HCl (Zofran) 4 mg Q6H PRN IVP Nausea & Vomiting 06/16/17 22:00 07/16/17 21:59 Pantoprazole (Protonix) 40 mg DAILY IV 06/17/17 09:00 07/17/17 08:59 Polyethylene Glycol (Miralax) 17 gm HSPRN PRN ORAL Constipation 06/16/17 22:00 07/16/17 21:59 Promethazine HCl (Phenergan) 25 mg Q8H PRN IV refractory nausea 06/16/17 22:00 07/16/17 21:59 Temazepam (Restoril) 15 mg HSPRN PRN ORAL Insomnia 06/16/17 22:00 06/23/17 21:59 ANGE PAZ Jun 18, 2017 11:15
--- NOTE | 2017-06-18 18:59 | General Progress Note ---
Assessment/Plan Assessment/Plan GI CONSULT Full note dictated Patient refusing GT replacement Will check swallow study in am Suggest psychiatry consultation. Thank you Rose Mary Mcclellan MD Subjective Allergies: Coded Allergies: No Known Allergies (Unverified , 02/21/14) Objective Last 24 Hour Vital Signs Date Time Temp Pulse Resp B/P (MAP) Pulse Ox O2 Delivery O2 Flow Rate FiO2 06/18/17 16:00 98.2 77 20 105/68 99 06/18/17 11:46 98.0 76 20 113/64 95 06/18/17 08:00 98.2 78 20 113/80 96 06/18/17 03:05 97.0 89 18 102/72 95 Room Air 06/18/17 03:00 97.0 89 18 102/72 95 Room Air 06/18/17 02:30 97.5 91 18 105/74 96 Room Air 06/18/17 02:15 97.5 93 18 109/75 96 Room Air 06/18/17 02:00 97.7 110 18 123/82 96 Room Air Intake and Output 06/17/17 06/18/17 19:00 07:00 Intake Total 0 ml 300 ml Balance 0 ml 300 ml Intake Oral 0 ml IV Total 300 ml # Voids 6 2 Laboratory Tests 06/18/17 07:05: White Blood Count 9.5, Red Blood Count 4.27, Hemoglobin 11.5L, Hematocrit 34.3L , Mean Corpuscular Volume 81, Mean Corpuscular Hemoglobin 27.0, Mean Corpuscular Hemoglobin Concent 33.5, Red Cell Distribution Width 13.5, Platelet Count 371, Mean Platelet Volume 7.4, Neutrophils (%) (Auto) 57.7, Lymphocytes (% ) (Auto) 28.0, Monocytes (%) (Auto) 7.8, Eosinophils (%) (Auto) 5.4H, Basophils (%) (Auto) 1.2, Sodium Level 138, Potassium Level 3.4L, Chloride Level 104, Carbon Dioxide Level 25, Anion Gap 9, Blood Urea Nitrogen 12, Creatinine 0.7, Estimat Glomerular Filtration Rate > 60, Glucose Level 92, Calcium Level 8.7 Height (Feet): 5 Height (Inches): 4.00 Weight (Pounds): 170 ROSE MARY MCCLELLAN Jun 18, 2017 18:59
--- NOTE | 2017-06-18 22:35 | Diagnostic Imaging Report ---
Indication: Abdominal pain Technique: Multiple grayscale and color Doppler imaging of the abdomen Comparison: None Findings: Limited evaluation due to patient's body habitus and overlying bowel gas. Pancreas and spleen not well seen. Right lobe of the liver measures 14.8 cm in length. There is diffuse increased hepatic echogenicity. No focal liver lesion is appreciated sonographically. Pain portal vein patent with normal direction of flow. A shadowing gallstone is noted within the gallbladder. There is borderline thickening of the gallbladder wall, possibly artifactual. There is no pericholecystic fluid. Sonographic Fisher sign was not reported. Kidneys are symmetric in size with normal parenchymal echogenicity. No stones or hydronephrosis seen bilaterally. No ascites. Impression: Limited exam. Cholelithiasis. Possible borderline gallbladder wall thickening. No pericholecystic fluid. Sonographic Fisher sign was not documented by the apparatus engineering technologist. Findings are equivocal. If there is concern for acute cystitis, consider repeat ultrasound or HIDA scan. Apparent diffuse increased echogenicity of the liver, most commonly reflective of hepatic steatosis. Additional hepatocellular diseases should be excluded clinically.
[2017-06-19] VITALS: BP 102/66
[2017-06-19 04:00] VITALS: BP 101/55
[2017-06-19] MEDS: D5 1/2NS 1,000 ML IV SCH ×2 (04:05→21:26)
--- NOTE | 2017-06-19 07:54 | General Progress Note ---
Assessment/Plan Problem List: (1) Episode of generalized weakness ICD Codes: R53.1 - Weakness SNOMED: 23120066 (2) Altered mental status ICD Codes: R41.82 - Altered mental status, unspecified SNOMED: 116445721 (3) Gastrostomy tube dysfunction ICD Codes: K94.23 - Gastrostomy malfunction SNOMED: 925646548 (4) Affective bipolar disorder ICD Codes: F31.9 - Affective bipolar disorder SNOMED: 46037546 (5) probably multiple sclerosis Status: unchanged Assessment/Plan ot pt diet gi f/u psyc tx cbc bmp am psyc transfer Subjective Constitutional: Reports: weakness Allergies: Coded Allergies: No Known Allergies (Unverified , 02/21/14) All Systems: reviewed and negative except above Subjective sleepy calm Objective Last 24 Hour Vital Signs Date Time Temp Pulse Resp B/P (MAP) Pulse Ox O2 Delivery O2 Flow Rate FiO2 06/19/17 04:00 97.3 63 20 101/55 100 06/19/17 00:00 97.8 84 20 102/66 100 06/18/17 20:00 97.1 81 20 103/70 97 06/18/17 16:00 98.2 77 20 105/68 99 06/18/17 11:46 98.0 76 20 113/64 95 06/18/17 08:00 98.2 78 20 113/80 96 Intake and Output 06/18/17 06/19/17 19:00 07:00 Intake Total 825 ml 825 ml Balance 825 ml 825 ml Intake Oral 0 ml IV Total 825 ml 825 ml # Voids 1 3 Height (Feet): 5 Height (Inches): 4.00 Weight (Pounds): 170 General Appearance: lethargic EENT: normal ENT inspection Neck: normal alignment Cardiovascular: normal peripheral pulses, normal rate, regular rhythm Respiratory/Chest: chest wall non-tender, lungs clear, normal breath sounds Abdomen: normal bowel sounds, non tender, soft Extremities: normal inspection Edema: no edema noted Arm (L), no edema noted Arm (R), no edema noted Leg (L), no edema noted Leg (R), no edema noted Pedal (L), no edema noted Pedal (R), no edema noted Generalized Neurologic: abnormal manager applied II-XII Skin: normal pigmentation, warm/dry NATHAN BE Jun 19, 2017 07:54
[2017-06-19 08:00] VITALS: BP 108/68
--- NOTE | 2017-06-19 08:00 | Progress Note ---
DATE: 06/18/2017 SUBJECTIVE: The patient is a 46-year-old female patient with G-tube malfunction. The patient also has moderate agitation and irritability 00:11 her attending physician has requested daily psychiatric consultation on this patient. I saw the patient at bedside. She is very irritable. She is asleep in bed. She is extremely mood labile, agitated 00:22. MENTAL STATUS EXAMINATION: This is a 46-year-old female patient with psychomotor agitation. Mood is irritable, agitated. Affect, guarded and restricted. Thought process is disorganized and illogical. 00:35 suicidal ideations. Mood is depressed apparently. Insight and judgement are poor. DIAGNOSIS: Paranoid schizophrenia, acute exacerbation. PLAN: Treat her with Zyprexa 5 mg per G-tube twice a day. 00:49. I am going to treat her with Haldol Decanoate 50 mg IM every 2 weeks and Ativan 1 mg IV q.4 h. as needed for anxiety and agitation. 00:58 Chart reviewed. Discussed with staff. Seen and assessed at bedside. Sivan Banks M.D. DR: ERIC/Cele JOB#: [id number] CC:
[2017-06-19] MEDS: Pantoprazole Inj IV SCH (08:51)
[2017-06-19] MEDS: Heparin 5000 units/ml inj SUBQ SCH ×2 (08:51→21:25)
[2017-06-19 12:00] VITALS: BP 110/71
--- NOTE | 2017-06-19 12:06 | Pulmonology Progress Note ---
Assessment/Plan Problems: (1) Malfunction of gastrostomy tube (2) Affective bipolar disorder (3) probably multiple sclerosis Assessment/Plan swallow evaluation check electrolytes psych evaluation. GI f/u dvt prophylaxis symptomatic treatment. Subjective ROS Limited/Unobtainable: No Allergies: Coded Allergies: No Known Allergies (Unverified , 02/21/14) Objective Last 24 Hour Vital Signs Date Time Temp Pulse Resp B/P (MAP) Pulse Ox O2 Delivery O2 Flow Rate FiO2 06/19/17 08:00 97.9 76 18 108/68 97 06/19/17 04:00 97.3 63 20 101/55 100 06/19/17 00:00 97.8 84 20 102/66 100 06/18/17 20:00 97.1 81 20 103/70 97 06/18/17 16:00 98.2 77 20 105/68 99 Intake and Output 06/18/17 06/19/17 19:00 07:00 Intake Total 825 ml 825 ml Balance 825 ml 825 ml Intake Oral 0 ml IV Total 825 ml 825 ml # Voids 1 3 Objective General Appearance: WD/WN HEENT: normocephalic, atraumatic Respiratory/Chest: chest wall non-tender, lungs clear Cardiovascular: normal peripheral pulses, normal rate Abdomen: normal bowel sounds, soft, non tender Genitourinary: normal external genitalia Extremities: no cyanosis Lymphatic: no neck adenopathy Current Medications Medications (Trade) Dose Ordered Sig/Sanju Route PRN Reason Start Time Stop Time Status Last Admin Dose Admin Acetaminophen (Tylenol) 650 mg Q4H PRN ORAL fever 06/16/17 22:00 07/16/17 21:59 Al Hydroxide/Mg Hydroxide (Mylanta II) 30 ml Q6H PRN ORAL dyspepsia 06/16/17 22:00 07/16/17 21:59 Dextrose (Dextrose 50%) STAT PRN IV Hypoglycemia 06/16/17 22:00 07/16/17 21:59 Dextrose/Sodium Chloride 1,000 ml @ 75 mls/hr [id number] IV 06/17/17 01:52 07/17/17 01:51 06/19/17 04:05 Diphenhydramine HCl (Benadryl) 25 mg Q6H PRN ORAL Itching/Pruritis 06/16/17 22:00 07/16/17 21:59 Haloperidol Decanoate (Haldol) 50 mg [id number] IM 06/17/17 18:00 07/17/17 17:59 06/17/17 18:27 Heparin Sodium (Porcine) (Heparin 5000 units/ml) 5,000 units EVERY 12 HOURS SUBQ 06/17/17 09:00 07/17/17 08:59 Lorazepam (Ativan 2mg/ml 1ml) 1 mg Q4H PRN IV agitation 06/16/17 22:00 06/23/17 21:59 Morphine Sulfate (Morphine Sulfate) 2 mg Q4H PRN IVP severe Pain (Pain Scale 7-10) 06/16/17 22:00 06/23/17 21:59 Nitroglycerin (Ntg) 0.4 mg Q5M X 3 DOSES PRN SL Prn Chest Pain 06/16/17 22:00 07/16/17 21:59 Olanzapine (ZyPREXA) 5 mg BID GT 06/17/17 18:00 07/17/17 08:59 Ondansetron HCl (Zofran) 4 mg Q6H PRN IVP Nausea & Vomiting 06/16/17 22:00 07/16/17 21:59 Pantoprazole (Protonix) 40 mg DAILY IV 06/17/17 09:00 07/17/17 08:59 Polyethylene Glycol (Miralax) 17 gm HSPRN PRN ORAL Constipation 06/16/17 22:00 07/16/17 21:59 Promethazine HCl (Phenergan) 25 mg Q8H PRN IV refractory nausea 06/16/17 22:00 07/16/17 21:59 Temazepam (Restoril) 15 mg HSPRN PRN ORAL Insomnia 06/16/17 22:00 06/23/17 21:59 ANGE PAZ Jun 19, 2017 12:06
--- NOTE | 2017-06-19 12:45 | GI Progress Note ---
Assessment/Plan Problems: (1) Episode of generalized weakness ICD Codes: R53.1 - Weakness SNOMED: 93174141 (2) Altered mental status ICD Codes: R41.82 - Altered mental status, unspecified SNOMED: 552740561 (3) Affective bipolar disorder ICD Codes: F31.9 - Affective bipolar disorder SNOMED: 44370071 (4) probably multiple sclerosis Status: stable Status Narrative Discussed with Dr. Allen. Assessment/Plan refusing all care fu psych recs okay for DC per GI standpoint Subjective Subjective refusing all care Objective Last 24 Hour Vital Signs Date Time Temp Pulse Resp B/P (MAP) Pulse Ox O2 Delivery O2 Flow Rate FiO2 06/19/17 08:00 97.9 76 18 108/68 97 06/19/17 04:00 97.3 63 20 101/55 100 06/19/17 00:00 97.8 84 20 102/66 100 06/18/17 20:00 97.1 81 20 103/70 97 06/18/17 16:00 98.2 77 20 105/68 99 Intake and Output 06/18/17 06/19/17 19:00 07:00 Intake Total 825 ml 825 ml Balance 825 ml 825 ml Intake Oral 0 ml IV Total 825 ml 825 ml # Voids 1 3 Height (Feet): 5 Height (Inches): 4.00 Weight (Pounds): 170 General Appearance: no apparent distress, alert, confused, thin Cardiovascular: normal rate Respiratory/Chest: normal breath sounds, no respiratory distress Abdominal Exam: normal bowel sounds, non tender, soft Extremities: normal range of motion, non-tender Malgorzata Willis N.P. Jun 19, 2017 12:45
[2017-06-19 16:15] VITALS: BP 102/65
--- NOTE | 2017-06-19 16:15 | Consultation ---
DATE OF CONSULTATION: 06/18/2017 GASTROENTEROLOGY CONSULTATION CONSULTING PHYSICIAN: Rose Mary Mcclellan M.D. CHIEF COMPLAINT: I was asked to see this patient by Dr. Jose L Mcginnis for evaluation of gastrostomy tube replacement. HISTORY OF PRESENT ILLNESS: The patient is a 46-year-old woman with a history of depression and paranoid schizophrenia, who had a gastrostomy tube. The gastrostomy tube apparently was pulled out by the patient and she is brought to the hospital. She refused gastrostomy tube replacement by the emergency room physician and upon my examination, she also refuses to have it replaced. When I asked her how she was going to eat, she states that she just will not eat. It is unclear if she clearly understood the ramifications of her statements, but she did not want to have the gastrostomy tube replacement. Therefore, site is left alone. The patient denies any abdominal pain, nausea, vomiting, or any other GI symptoms, although she is not very conversant. PAST MEDICAL HISTORY: History of depression and paranoid schizophrenia, gastrostomy tube placement, history of dysphagia, gastroesophageal reflux FAMILY HISTORY: Noncontributory. SOCIAL HISTORY: Noncontributory. REVIEW OF SYSTEMS: The patient denies any abdominal pain, nausea, or vomiting. PHYSICAL EXAMINATION: GENERAL: A well-developed, well-nourished woman, seen in her room. HEENT: Normocephalic and atraumatic. Sclerae were anicteric. Oropharynx clear. NECK: Supple. CHEST: Clear to auscultation. CARDIOVASCULAR: Revealed regular rate. ABDOMEN: Soft with good bowel sounds. Gastrostomy site was examined. It was still open and draining some clear gastric juice. EXTREMITIES: Revealed no edema. NEUROLOGIC: Grossly nonfocal. LABORATORY DATA: Noted. ASSESSMENT: This patient has pulled gastrostomy tube and declines replacement with another one. I suspect that her swallow function will be normal and her anorexia is mainly perhaps psychiatric disorder and not physical issue. However, swallow study should be checked tomorrow again. The consideration for a psychiatric evaluation can be made. Gastrostomy site should be cared for until the closing, which is discussed with the son. The patient's weight and oral intake should be followed very closely. RECOMMENDATIONS: Per above discussion and per orders written in the chart. Thank you for asking me to participate in the care of this patient. Rose Mary Mcclellan M.D. DR: GERMANIA JOB#: [id number] CC: JES
[2017-06-19 20:00] VITALS: BP 105/66
--- NOTE | 2017-06-19 21:45 | Progress Note ---
DATE: 06/19/2017 HISTORY: The patient is a 46-year-old female patient. She came into the hospital with G-tube malfunction, but she has still has altered mental status, agitation, irritability. MENTAL STATUS EXAMINATION: She is a 46-year-old female, psychomotor agitation. Mood is irritable and agitated. Affect guarded and restricted. Thought process is disorganized and illogical, psychomotor agitation. Insight and judgement is poor. DIAGNOSIS: Paranoid schizophrenia with acute exacerbation. Because of her mood lability and agitation, our attending has requested daily psychiatric consultation. PLAN: Continue on Zyprexa 5 mg twice a day Haldol decanoate 50 mg IM every two weeks to stabilize her mood, reduce agitation and psychosis. Chart reviewed and discussed with staff. Chart reviewed and discussed with staff. The patient seen and assessed at bedside. Plan is to transfer to [facility] once she is medically cleared. Sivan Banks M.D. DR: DEE JOB#: [id number] CC:
[2017-06-20] VITALS: BP 109/66
[2017-06-20 04:00] VITALS: BP 117/72
[2017-06-20 08:00] VITALS: BP 98/57
[2017-06-20] MEDS: Pantoprazole Inj IV SCH (09:00)
[2017-06-20] MEDS: Heparin 5000 units/ml inj SUBQ SCH ×2 (09:00→21:57)
[2017-06-20] MEDS: D5 1/2NS 1,000 ML IV SCH ×2 (09:22→21:55)
[2017-06-20 12:00] VITALS: BP 111/59
--- NOTE | 2017-06-20 13:16 | General Progress Note ---
Assessment/Plan Problem List: (1) Episode of generalized weakness ICD Codes: R53.1 - Weakness SNOMED: 03895209 (2) Altered mental status ICD Codes: R41.82 - Altered mental status, unspecified SNOMED: 440247105 (3) Gastrostomy tube dysfunction ICD Codes: K94.23 - Gastrostomy malfunction SNOMED: 936853207 (4) Affective bipolar disorder ICD Codes: F31.9 - Affective bipolar disorder SNOMED: 30022402 (5) probably multiple sclerosis Status: unchanged Assessment/Plan ot pt diet gi f/u psyc tx cbc bmp am pending gtube Subjective Constitutional: Reports: weakness Allergies: Coded Allergies: No Known Allergies (Unverified , 02/21/14) All Systems: reviewed and negative except above Subjective sleepy calm Objective Last 24 Hour Vital Signs Date Time Temp Pulse Resp B/P (MAP) Pulse Ox O2 Delivery O2 Flow Rate FiO2 06/20/17 08:00 96.2 62 17 98/57 97 06/20/17 04:00 97.8 64 21 117/72 100 06/20/17 00:00 97.7 69 21 109/66 100 06/19/17 20:00 97.9 71 20 105/66 100 06/19/17 16:15 97.9 73 21 102/65 99 Room Air Intake and Output 06/19/17 06/20/17 19:00 07:00 Intake Total 75 ml 750 ml Balance 75 ml 750 ml IV Total 75 ml 750 ml # Voids 4 3 # Bowel Movements 1 Height (Feet): 5 Height (Inches): 4.00 Weight (Pounds): 170 General Appearance: lethargic, confused EENT: normal ENT inspection Neck: normal alignment Cardiovascular: normal peripheral pulses, normal rate, regular rhythm Respiratory/Chest: chest wall non-tender, lungs clear, normal breath sounds Abdomen: normal bowel sounds, non tender, soft Extremities: normal inspection Edema: no edema noted Arm (L), no edema noted Arm (R), no edema noted Leg (L), no edema noted Leg (R), no edema noted Pedal (L), no edema noted Pedal (R), no edema noted Generalized Neurologic: motor weakness Skin: normal pigmentation, warm/dry NATHAN BE Jun 20, 2017 13:15
[2017-06-20 15:57] VITALS: BP 114/78
--- NOTE | 2017-06-20 16:00 | Pulmonology Progress Note ---
Assessment/Plan Problems: (1) Malfunction of gastrostomy tube (2) Affective bipolar disorder (3) probably multiple sclerosis Assessment/Plan swallow evaluation check electrolytes psych evaluation. GI f/u dvt prophylaxis symptomatic treatment. doesn't want to eat or have any swallow study. Subjective ROS Limited/Unobtainable: No Constitutional: Reports: no symptoms HEENT: Repors: no symptoms Allergies: Coded Allergies: No Known Allergies (Unverified , 02/21/14) Objective Last 24 Hour Vital Signs Date Time Temp Pulse Resp B/P (MAP) Pulse Ox O2 Delivery O2 Flow Rate FiO2 06/20/17 15:57 98.2 76 20 114/78 97 Room Air 06/20/17 12:00 97.2 65 17 111/59 97 06/20/17 08:00 96.2 62 17 98/57 97 06/20/17 04:00 97.8 64 21 117/72 100 06/20/17 00:00 97.7 69 21 109/66 100 06/19/17 20:00 97.9 71 20 105/66 100 06/19/17 16:15 97.9 73 21 102/65 99 Room Air Intake and Output 06/19/17 06/20/17 19:00 07:00 Intake Total 75 ml 750 ml Balance 75 ml 750 ml IV Total 75 ml 750 ml # Voids 4 3 # Bowel Movements 1 Objective General Appearance: WD/WN HEENT: normocephalic, atraumatic Respiratory/Chest: chest wall non-tender, lungs clear Cardiovascular: normal peripheral pulses, normal rate Abdomen: normal bowel sounds, soft, non tender Genitourinary: normal external genitalia Extremities: no cyanosis Lymphatic: no neck adenopathy Current Medications Medications (Trade) Dose Ordered Sig/Sanju Route PRN Reason Start Time Stop Time Status Last Admin Dose Admin Acetaminophen (Tylenol) 650 mg Q4H PRN ORAL fever 06/16/17 22:00 07/16/17 21:59 Al Hydroxide/Mg Hydroxide (Mylanta II) 30 ml Q6H PRN ORAL dyspepsia 06/16/17 22:00 07/16/17 21:59 Dextrose (Dextrose 50%) STAT PRN IV Hypoglycemia 06/16/17 22:00 07/16/17 21:59 Dextrose/Sodium Chloride 1,000 ml @ 75 mls/hr [id number] IV 06/17/17 01:52 07/17/17 01:51 06/20/17 09:22 Diphenhydramine HCl (Benadryl) 25 mg Q6H PRN ORAL Itching/Pruritis 06/16/17 22:00 07/16/17 21:59 Haloperidol Decanoate (Haldol) 50 mg [id number] IM 06/17/17 18:00 07/17/17 17:59 06/17/17 18:27 Heparin Sodium (Porcine) (Heparin 5000 units/ml) 5,000 units EVERY 12 HOURS SUBQ 06/17/17 09:00 07/17/17 08:59 06/19/17 21:25 Lorazepam (Ativan 2mg/ml 1ml) 1 mg Q4H PRN IV agitation 06/16/17 22:00 06/23/17 21:59 Morphine Sulfate (Morphine Sulfate) 2 mg Q4H PRN IVP severe Pain (Pain Scale 7-10) 06/16/17 22:00 06/23/17 21:59 Nitroglycerin (Ntg) 0.4 mg Q5M X 3 DOSES PRN SL Prn Chest Pain 06/16/17 22:00 07/16/17 21:59 Olanzapine (ZyPREXA) 5 mg BID GT 06/17/17 18:00 07/17/17 08:59 Ondansetron HCl (Zofran) 4 mg Q6H PRN IVP Nausea & Vomiting 06/16/17 22:00 07/16/17 21:59 Pantoprazole (Protonix) 40 mg DAILY IV 06/17/17 09:00 07/17/17 08:59 Polyethylene Glycol (Miralax) 17 gm HSPRN PRN ORAL Constipation 06/16/17 22:00 07/16/17 21:59 Promethazine HCl (Phenergan) 25 mg Q8H PRN IV refractory nausea 06/16/17 22:00 07/16/17 21:59 Temazepam (Restoril) 15 mg HSPRN PRN ORAL Insomnia 06/16/17 22:00 06/23/17 21:59 ANGE PAZ Jun 20, 2017 16:00
--- NOTE | 2017-06-20 16:37 | GI Progress Note ---
Assessment/Plan Problems: (1) Episode of generalized weakness ICD Codes: R53.1 - Weakness SNOMED: 47311723 (2) Altered mental status ICD Codes: R41.82 - Altered mental status, unspecified SNOMED: 874045577 (3) Affective bipolar disorder ICD Codes: F31.9 - Affective bipolar disorder SNOMED: 95753290 (4) probably multiple sclerosis Status: unchanged Status Narrative Discussed with Dr. Allen. Assessment/Plan Patient needs to be evaluated by psych to see if they have the mental capacity to make self decisions for GT placement. At this time, the patient has refused all care which includes, but not limited to NGT or GT placement, meds, VS, etc. fu psych fu socially responsible investment adviser will follow Subjective Subjective refusing all care Objective Last 24 Hour Vital Signs Date Time Temp Pulse Resp B/P (MAP) Pulse Ox O2 Delivery O2 Flow Rate FiO2 06/20/17 15:57 98.2 76 20 114/78 97 Room Air 06/20/17 12:00 97.2 65 17 111/59 97 06/20/17 08:00 96.2 62 17 98/57 97 06/20/17 04:00 97.8 64 21 117/72 100 06/20/17 00:00 97.7 69 21 109/66 100 06/19/17 20:00 97.9 71 20 105/66 100 Intake and Output 06/19/17 06/20/17 19:00 07:00 Intake Total 75 ml 750 ml Balance 75 ml 750 ml IV Total 75 ml 750 ml # Voids 4 3 # Bowel Movements 1 Height (Feet): 5 Height (Inches): 4.00 Weight (Pounds): 170 General Appearance: WD/WN, no apparent distress, alert Cardiovascular: normal rate Respiratory/Chest: normal breath sounds, no respiratory distress Abdominal Exam: normal bowel sounds, non tender, soft Malgorzata Willis N.P. Jun 20, 2017 16:37
[2017-06-20 20:00] VITALS: BP 109/69
--- NOTE | 2017-06-20 21:03 | Progress Note ---
DATE: 06/20/2017 HISTORY: This is a 46-year-old female patient who came in for G-tube malfunction, but she is very irritable and agitated. She is refusing medications and as a result she has a diagnosis of paranoid schizophrenia, but her thought process become increasingly disorganized and agitated because of her refusing the medications itself. MENTAL STATUS EXAMINATION: She is a 46-year-old female with psychomotor agitation. Mood is irritable and agitated. Affect guarded and restricted. Thought process is disorganized and illogical. Denies any current suicidal or homicidal thoughts. Insight and judgment is poor. DIAGNOSIS: Paranoid schizophrenia with acute exacerbation. PLAN: I am going to continue treating this patient with a medication regimen Haldol deaconate 50 mg IM q.2 weeks since she is refusing medications orally, but then also indeed I offered her Zyprexa 5 mg per G-tube twice a day and then because of her agitation I recommend to transfer to psych once she is medically cleared. Chart reviewed. Discussed with staff. The patient was seen and assessed in her room. Sivan Banks M.D. DR: DEE JOB#: [id number] CC:
[2017-06-21] VITALS: BP 106/68
[2017-06-21 04:00] VITALS: BP 107/57
[2017-06-21 08:36] VITALS: BP 108/71
[2017-06-21] MEDS: Pantoprazole Inj IV SCH (09:00)
[2017-06-21] MEDS: Heparin 5000 units/ml inj SUBQ SCH ×2 (09:00→20:15)
--- NOTE | 2017-06-21 11:10 | GI Progress Note ---
Assessment/Plan Problems: (1) Episode of generalized weakness ICD Codes: R53.1 - Weakness SNOMED: 15695606 (2) Altered mental status ICD Codes: R41.82 - Altered mental status, unspecified SNOMED: 901527653 (3) Affective bipolar disorder ICD Codes: F31.9 - Affective bipolar disorder SNOMED: 27404902 (4) probably multiple sclerosis Status: not improved, unchanged Status Narrative Discussed with Dr. Allen. Assessment/Plan Patient needs to be evaluated by psych to see if they have the mental capacity to make self decisions for GT placement. At this time, the patient has refused all care which includes, but not limited to NGT or GT placement, meds, VS, etc. refusing to eat, will order trial FLD try to bedside with strict aspiration precautions and feeder. fu psych fu social security specialist will follow updated @1300 >> patient continues to refuse to eat or participate in any care and/or treatment. updated @1500 >> Per Dr. Banks, the patient does NOT have the capacity to make decisions and his recommendations are to transfer to psych when medically cleared. - will order bioethics consult to determine possible PEG. Subjective Subjective refusing all care Objective Last 24 Hour Vital Signs Date Time Temp Pulse Resp B/P (MAP) Pulse Ox O2 Delivery O2 Flow Rate FiO2 06/21/17 08:36 97.5 66 19 108/71 99 06/21/17 04:00 97.8 67 21 107/57 98 06/21/17 00:00 98.2 67 21 106/68 95 06/20/17 20:00 98.0 68 21 109/69 98 06/20/17 15:57 98.2 76 20 114/78 97 Room Air 06/20/17 12:00 97.2 65 17 111/59 97 Intake and Output 06/20/17 06/21/17 19:00 07:00 Intake Total 825 ml 750 ml Balance 825 ml 750 ml IV Total 825 ml 750 ml # Voids 3 3 Height (Feet): 5 Height (Inches): 4.00 Weight (Pounds): 170 General Appearance: WD/WN, no apparent distress, alert Cardiovascular: normal rate Respiratory/Chest: normal breath sounds, no respiratory distress Abdominal Exam: normal bowel sounds, non tender, soft Extremities: normal range of motion, non-tender WillisMalgorzata N.P. Jun 21, 2017 11:10
[2017-06-21 11:32] VITALS: BP 117/69
[2017-06-21] MEDS: D5 1/2NS 1,000 ML IV SCH (12:47)
--- NOTE | 2017-06-21 14:14 | General Progress Note ---
Assessment/Plan Problem List: (1) Episode of generalized weakness ICD Codes: R53.1 - Weakness SNOMED: 34857655 (2) Altered mental status ICD Codes: R41.82 - Altered mental status, unspecified SNOMED: 909195751 (3) Gastrostomy tube dysfunction ICD Codes: K94.23 - Gastrostomy malfunction SNOMED: 034405284 (4) Affective bipolar disorder ICD Codes: F31.9 - Affective bipolar disorder SNOMED: 28741496 (5) probably multiple sclerosis Status: unchanged Assessment/Plan ot pt diet gi f/u psyc tx cbc bmp am pending gtube Subjective Constitutional: Reports: weakness Allergies: Coded Allergies: No Known Allergies (Unverified , 02/21/14) All Systems: reviewed and negative except above Subjective sleepy calm Objective Last 24 Hour Vital Signs Date Time Temp Pulse Resp B/P (MAP) Pulse Ox O2 Delivery O2 Flow Rate FiO2 06/21/17 11:32 97.6 72 20 117/69 98 06/21/17 08:36 97.5 66 19 108/71 99 06/21/17 04:00 97.8 67 21 107/57 98 06/21/17 00:00 98.2 67 21 106/68 95 06/20/17 20:00 98.0 68 21 109/69 98 06/20/17 15:57 98.2 76 20 114/78 97 Room Air Intake and Output 06/20/17 06/21/17 19:00 07:00 Intake Total 825 ml 750 ml Balance 825 ml 750 ml IV Total 825 ml 750 ml # Voids 3 3 Height (Feet): 5 Height (Inches): 4.00 Weight (Pounds): 170 General Appearance: lethargic, confused EENT: normal ENT inspection Neck: normal alignment Cardiovascular: normal peripheral pulses, normal rate, regular rhythm Respiratory/Chest: decreased breath sounds Abdomen: normal bowel sounds, non tender, soft Extremities: normal inspection Edema: no edema noted Arm (L), no edema noted Arm (R), no edema noted Leg (L), no edema noted Leg (R), no edema noted Pedal (L), no edema noted Pedal (R), no edema noted Generalized Neurologic: motor weakness Skin: normal pigmentation, warm/dry NATHAN BE Jun 21, 2017 14:14
[2017-06-21 16:00] VITALS: BP 120/78
--- NOTE | 2017-06-21 17:01 | Pulmonology Progress Note ---
Assessment/Plan Problems: (1) Malfunction of gastrostomy tube (2) Affective bipolar disorder (3) probably multiple sclerosis Assessment/Plan check electrolytes psych evaluation. GI f/u dvt prophylaxis symptomatic treatment. doesn't want to eat or have any swallow study. pt doesn't have capacity according to psych to make his decisions. Subjective ROS Limited/Unobtainable: No Constitutional: Reports: no symptoms HEENT: Repors: no symptoms Respiratory: Reports: no symptoms Allergies: Coded Allergies: No Known Allergies (Unverified , 02/21/14) Objective Last 24 Hour Vital Signs Date Time Temp Pulse Resp B/P (MAP) Pulse Ox O2 Delivery O2 Flow Rate FiO2 06/21/17 16:00 97.2 69 20 120/78 97 06/21/17 11:32 97.6 72 20 117/69 98 06/21/17 08:36 97.5 66 19 108/71 99 06/21/17 04:00 97.8 67 21 107/57 98 06/21/17 00:00 98.2 67 21 106/68 95 06/20/17 20:00 98.0 68 21 109/69 98 Intake and Output 06/20/17 06/21/17 19:00 07:00 Intake Total 825 ml 825 ml Balance 825 ml 825 ml IV Total 825 ml 825 ml # Voids 3 3 Objective General Appearance: WD/WN HEENT: normocephalic, atraumatic Respiratory/Chest: chest wall non-tender, lungs clear Cardiovascular: normal peripheral pulses, normal rate Abdomen: normal bowel sounds, soft, non tender Genitourinary: normal external genitalia Extremities: no cyanosis Lymphatic: no neck adenopathy Current Medications Medications (Trade) Dose Ordered Sig/Sanju Route PRN Reason Start Time Stop Time Status Last Admin Dose Admin Acetaminophen (Tylenol) 650 mg Q4H PRN ORAL fever 06/16/17 22:00 07/16/17 21:59 Al Hydroxide/Mg Hydroxide (Mylanta II) 30 ml Q6H PRN ORAL dyspepsia 06/16/17 22:00 07/16/17 21:59 Dextrose (Dextrose 50%) STAT PRN IV Hypoglycemia 06/16/17 22:00 07/16/17 21:59 Dextrose/Sodium Chloride 1,000 ml @ 75 mls/hr [id number] IV 06/17/17 01:52 07/17/17 01:51 06/21/17 12:47 Diphenhydramine HCl (Benadryl) 25 mg Q6H PRN ORAL Itching/Pruritis 06/16/17 22:00 07/16/17 21:59 Haloperidol Decanoate (Haldol) 50 mg [id number] IM 06/17/17 18:00 07/17/17 17:59 06/17/17 18:27 Heparin Sodium (Porcine) (Heparin 5000 units/ml) 5,000 units EVERY 12 HOURS SUBQ 06/17/17 09:00 07/17/17 08:59 06/20/17 21:57 Lorazepam (Ativan 2mg/ml 1ml) 1 mg Q4H PRN IV agitation 06/16/17 22:00 06/23/17 21:59 Morphine Sulfate (Morphine Sulfate) 2 mg Q4H PRN IVP severe Pain (Pain Scale 7-10) 06/16/17 22:00 06/23/17 21:59 Nitroglycerin (Ntg) 0.4 mg Q5M X 3 DOSES PRN SL Prn Chest Pain 06/16/17 22:00 07/16/17 21:59 Olanzapine (ZyPREXA) 5 mg BID GT 06/17/17 18:00 07/17/17 08:59 Ondansetron HCl (Zofran) 4 mg Q6H PRN IVP Nausea & Vomiting 06/16/17 22:00 07/16/17 21:59 Pantoprazole (Protonix) 40 mg DAILY IV 06/17/17 09:00 07/17/17 08:59 Polyethylene Glycol (Miralax) 17 gm HSPRN PRN ORAL Constipation 06/16/17 22:00 07/16/17 21:59 Promethazine HCl (Phenergan) 25 mg Q8H PRN IV refractory nausea 06/16/17 22:00 07/16/17 21:59 Temazepam (Restoril) 15 mg HSPRN PRN ORAL Insomnia 06/16/17 22:00 06/23/17 21:59 ANGE PAZ Jun 21, 2017 17:01
--- NOTE | 2017-06-21 18:47 | Progress Note ---
DATE: 06/21/2017 SUBJECTIVE: The patient is a 46-year-old female patient with G-tube malfunction. She has some confusion, disorganized thought process, and mood lability secondary to stress from her medical illness. She is agitated. She is irritable. She is refusing care. She was diagnosed with psychiatric illness that is why attending physician has requested daily psychiatric consultation with the patient to reduce agitation and mood lability. DIAGNOSIS: Paranoid schizophrenia, acute exacerbation. MENTAL STATUS: The patient is a 46-year-old female with psychomotor agitation. Mood is irritable and agitated. Affect guarded and restricted. Thought process is disorganized and illogical. She cannot contract for safety as far as suicidal and homicidal thoughts. Insight and judgement are poor. Chart reviewed and discussed with staff. Seen and assessed at bedside. Supportive therapy provided. PLAN: Transfer to [facility] once she is medically clear or a snf psychiatry facility if possible. She has a G-tube, but also continue her on Haldol decanoate 50 mg IM q.12 h. and Risperdal 5 mg twice a day. Chart reviewed and discussed with staff. Sivan Banks M.D. DR: DEE JOB#: [id number] CC:
[2017-06-22] VITALS: BP 108/63
[2017-06-22 04:00] VITALS: BP 119/75
[2017-06-22 08:00] VITALS: BP 112/56
[2017-06-22] MEDS: Pantoprazole Inj IV SCH (08:59)
[2017-06-22] MEDS: Heparin 5000 units/ml inj SUBQ SCH ×2 (08:59→20:14)
--- NOTE | 2017-06-22 11:57 | GI Progress Note ---
Assessment/Plan Problems: (1) Episode of generalized weakness ICD Codes: R53.1 - Weakness SNOMED: 87187030 (2) Altered mental status ICD Codes: R41.82 - Altered mental status, unspecified SNOMED: 374122850 (3) Affective bipolar disorder ICD Codes: F31.9 - Affective bipolar disorder SNOMED: 80367929 (4) probably multiple sclerosis Status: unchanged Status Narrative Discussed with Dr. Allen. Assessment/Plan per verbal conversation with nimisha, the patient does NOT have capacity to make own decisions >> bioethics consulted scheduled for 06/23/17 meeting. At this time, the patient has refused all care which includes, but not limited to NGT or GT placement, meds, VS, etc. refusing to eat, will order trial FLD try to bedside with strict aspiration precautions and feeder. fu psych fu social media marketing analyst will follow Subjective Subjective refusing all care Objective Last 24 Hour Vital Signs Date Time Temp Pulse Resp B/P (MAP) Pulse Ox O2 Delivery O2 Flow Rate FiO2 06/22/17 08:00 97.9 63 20 112/56 98 06/22/17 04:00 97.0 66 20 119/75 98 06/22/17 00:00 97.3 84 20 108/63 98 06/21/17 16:00 97.2 69 20 120/78 97 Intake and Output 06/21/17 06/22/17 19:00 07:00 Intake Total 775 ml 900 ml Balance 775 ml 900 ml Intake Oral 0 ml IV Total 775 ml 900 ml # Voids 3 3 Height (Feet): 5 Height (Inches): 4.00 Weight (Pounds): 170 General Appearance: no apparent distress, alert, confused Cardiovascular: normal rate Respiratory/Chest: normal breath sounds, no accessory muscle use Abdominal Exam: soft Malgorzata Willis N.P. Jun 22, 2017 11:57
[2017-06-22 12:00] VITALS: BP 106/69
[2017-06-22] MEDS: D5 1/2NS 1,000 ML IV SCH ×2 (14:25)
--- NOTE | 2017-06-22 14:35 | General Progress Note ---
Assessment/Plan Problem List: (1) Episode of generalized weakness ICD Codes: R53.1 - Weakness SNOMED: 03083209 (2) Altered mental status ICD Codes: R41.82 - Altered mental status, unspecified SNOMED: 647260098 (3) Gastrostomy tube dysfunction ICD Codes: K94.23 - Gastrostomy malfunction SNOMED: 309797901 (4) Affective bipolar disorder ICD Codes: F31.9 - Affective bipolar disorder SNOMED: 59538981 (5) probably multiple sclerosis Status: unchanged Assessment/Plan ot pt diet gi f/u psyc tx cbc bmp am pending gtube Subjective Constitutional: Reports: weakness Allergies: Coded Allergies: No Known Allergies (Unverified , 02/21/14) All Systems: reviewed and negative except above Subjective sleepy calm Objective Last 24 Hour Vital Signs Date Time Temp Pulse Resp B/P (MAP) Pulse Ox O2 Delivery O2 Flow Rate FiO2 06/22/17 12:00 98.1 64 20 106/69 98 06/22/17 08:00 97.9 63 20 112/56 98 06/22/17 04:00 97.0 66 20 119/75 98 06/22/17 00:00 97.3 84 20 108/63 98 06/21/17 16:00 97.2 69 20 120/78 97 Intake and Output 06/21/17 06/22/17 19:00 07:00 Intake Total 775 ml 900 ml Balance 775 ml 900 ml Intake Oral 0 ml IV Total 775 ml 900 ml # Voids 3 3 Height (Feet): 5 Height (Inches): 4.00 Weight (Pounds): 170 General Appearance: lethargic, confused EENT: normal ENT inspection Neck: normal alignment Cardiovascular: normal peripheral pulses, normal rate, regular rhythm Respiratory/Chest: chest wall non-tender, lungs clear, normal breath sounds Abdomen: normal bowel sounds, non tender, soft Extremities: normal inspection Edema: no edema noted Arm (L), no edema noted Arm (R), no edema noted Leg (L), no edema noted Leg (R), no edema noted Pedal (L), no edema noted Pedal (R), no edema noted Generalized Neurologic: motor weakness Skin: normal pigmentation, warm/dry NATHAN BE Jun 22, 2017 14:35
[2017-06-22 16:16] VITALS: BP 106/70
--- NOTE | 2017-06-22 16:26 | Pulmonology Progress Note ---
Assessment/Plan Problems: (1) Malfunction of gastrostomy tube (2) Affective bipolar disorder (3) probably multiple sclerosis Assessment/Plan looks comfortable check electrolytes psych evaluation. GI f/u dvt prophylaxis symptomatic treatment. doesn't want to eat or have any swallow study. pt doesn't have capacity according to psych to make his decisions. awaitng for a bed in a psych facility Subjective ROS Limited/Unobtainable: No Allergies: Coded Allergies: No Known Allergies (Unverified , 02/21/14) Objective Last 24 Hour Vital Signs Date Time Temp Pulse Resp B/P (MAP) Pulse Ox O2 Delivery O2 Flow Rate FiO2 06/22/17 16:16 98.0 65 20 106/70 100 06/22/17 12:00 98.1 64 20 106/69 98 06/22/17 08:00 97.9 63 20 112/56 98 06/22/17 04:00 97.0 66 20 119/75 98 06/22/17 00:00 97.3 84 20 108/63 98 Intake and Output 06/21/17 06/22/17 19:00 07:00 Intake Total 775 ml 900 ml Balance 775 ml 900 ml Intake Oral 0 ml IV Total 775 ml 900 ml # Voids 3 3 Objective General Appearance: WD/WN HEENT: normocephalic, atraumatic Respiratory/Chest: chest wall non-tender, lungs clear Cardiovascular: normal peripheral pulses, normal rate Abdomen: normal bowel sounds, soft, non tender Genitourinary: normal external genitalia Extremities: no cyanosis Lymphatic: no neck adenopathy Current Medications Medications (Trade) Dose Ordered Sig/Sanju Route PRN Reason Start Time Stop Time Status Last Admin Dose Admin Acetaminophen (Tylenol) 650 mg Q4H PRN ORAL fever 06/16/17 22:00 07/16/17 21:59 Al Hydroxide/Mg Hydroxide (Mylanta II) 30 ml Q6H PRN ORAL dyspepsia 06/16/17 22:00 07/16/17 21:59 Dextrose (Dextrose 50%) STAT PRN IV Hypoglycemia 06/16/17 22:00 07/16/17 21:59 Dextrose/Sodium Chloride 1,000 ml @ 75 mls/hr [id number] IV 06/17/17 01:52 07/17/17 01:51 06/22/17 14:25 Diphenhydramine HCl (Benadryl) 25 mg Q6H PRN ORAL Itching/Pruritis 06/16/17 22:00 07/16/17 21:59 Haloperidol Decanoate (Haldol) 50 mg [id number] IM 06/17/17 18:00 07/17/17 17:59 06/17/17 18:27 Heparin Sodium (Porcine) (Heparin 5000 units/ml) 5,000 units EVERY 12 HOURS SUBQ 06/17/17 09:00 07/17/17 08:59 06/20/17 21:57 Lorazepam (Ativan 2mg/ml 1ml) 1 mg Q4H PRN IV agitation 06/16/17 22:00 06/23/17 21:59 Morphine Sulfate (Morphine Sulfate) 2 mg Q4H PRN IVP severe Pain (Pain Scale 7-10) 06/16/17 22:00 06/23/17 21:59 Nitroglycerin (Ntg) 0.4 mg Q5M X 3 DOSES PRN SL Prn Chest Pain 06/16/17 22:00 07/16/17 21:59 Olanzapine (ZyPREXA) 5 mg BID GT 06/17/17 18:00 07/17/17 08:59 Ondansetron HCl (Zofran) 4 mg Q6H PRN IVP Nausea & Vomiting 06/16/17 22:00 07/16/17 21:59 Pantoprazole (Protonix) 40 mg DAILY IV 06/17/17 09:00 07/17/17 08:59 Polyethylene Glycol (Miralax) 17 gm HSPRN PRN ORAL Constipation 06/16/17 22:00 07/16/17 21:59 Promethazine HCl (Phenergan) 25 mg Q8H PRN IV refractory nausea 06/16/17 22:00 07/16/17 21:59 Temazepam (Restoril) 15 mg HSPRN PRN ORAL Insomnia 06/16/17 22:00 06/23/17 21:59 ANGE PAZ Jun 22, 2017 16:26
--- NOTE | 2017-06-22 18:00 | Progress Note ---
DATE: 06/22/2017 HISTORY OF PRESENT ILLNESS: This is a 46-year-old female patient with G-tube malfunction. This patient is confused, disorganized. She has lot of agitation, irritability, combativeness, and so plan for this patient is to prescribe Zyprexa, but also Haldol decanoate 50 mg IM every month to prevent any further decline in cognition. MENTAL STATUS EXAMINATION: A 46-year-old female, psychomotor agitation. Mood is irritable and agitated. Affect guarded and restricted. Thought process is disorganized and illogical. No signs of any suicidal or homicidal thoughts. Insight and judgment is poor. DIAGNOSIS: Paranoid schizophrenia. PLAN: Haldol decanoate 50 mg IM every two weeks to prevent any further decline in her cognition and agitation and to stabilize her mood since she is refusing medications orally and will be transferred to psych when medically cleared. I believe she lacks capacity to make her medical decisions. Chart reviewed and discussed with staff. Seen and assessed at bedside. Supportive therapy provided. Sivan Banks M.D. DR: HEMANTH JOB#: [id number] CC:
[2017-06-22 20:00] VITALS: BP 104/60
[2017-06-23] VITALS: BP 106/60
[2017-06-23] MEDS: D5 1/2NS 1,000 ML IV SCH ×2 (03:56→17:24)
[2017-06-23 04:00] VITALS: BP 102/64
--- NOTE | 2017-06-23 07:44 | Pulmonology Progress Note ---
Assessment/Plan Assessment/Plan ASSESSMENT Paranoid schizophrenia with acute exacerbation Noncompliance G tube malfunction( pulled out) Probable MS ( based on prior imaging) PLAN OF CARE MS floor pulled out GT declining any interventions: NGT, GT, labs, refusing to eat Psych follows psych deemed incapable to make any informed decisions Psych meds optimized, pt not taking Pending transfer to psych facility when medically stable GI follows, suspecting psychogenic cause of anorexia not physical, Bioethics consult pending PT/OT Symptomatic treatment, awaiting for bioethics decision case discussed and evaluated by supervising physician Subjective Allergies: Coded Allergies: No Known Allergies (Unverified , 02/21/14) Subjective admits to not eating denies food, blood draw, NG/GT placement denies CP SOB, palpitations non-ambulatory Objective Last 24 Hour Vital Signs Date Time Temp Pulse Resp B/P (MAP) Pulse Ox O2 Delivery O2 Flow Rate FiO2 06/23/17 04:00 97.7 101 20 102/64 100 06/23/17 00:00 97.7 68 20 106/60 96 06/22/17 20:00 97.9 67 20 104/60 98 06/22/17 16:16 98.0 65 20 106/70 100 06/22/17 12:00 98.1 64 20 106/69 98 06/22/17 08:00 97.9 63 20 112/56 98 Intake and Output 06/22/17 06/23/17 19:00 07:00 Intake Total 825 ml 900 ml Balance 825 ml 900 ml Intake Oral 0 ml IV Total 825 ml 900 ml # Voids 4 3 General Appearance: no acute distress, other - awake, alert, responsive, poor eye contact AA bedridden female i NAD HEENT: normocephalic, atraumatic, anicteric Respiratory/Chest: lungs clear, no respiratory distress, no accessory muscle use Cardiovascular: normal rate, regular rhythm, no JVD Abdomen: normal bowel sounds, soft, non tender, other - old G tube site healing Neurologic/Psychiatric: abnormal gait - bedriddebn , alert, responsive - poor eye contact, other - moves all extremities, Musculoskeletal: atrophy - BLE Current Medications Medications (Trade) Dose Ordered Sig/Sanju Route PRN Reason Start Time Stop Time Status Last Admin Dose Admin Acetaminophen (Tylenol) 650 mg Q4H PRN ORAL fever 06/16/17 22:00 07/16/17 21:59 Al Hydroxide/Mg Hydroxide (Mylanta II) 30 ml Q6H PRN ORAL dyspepsia 06/16/17 22:00 07/16/17 21:59 Dextrose (Dextrose 50%) STAT PRN IV Hypoglycemia 06/16/17 22:00 07/16/17 21:59 Dextrose/Sodium Chloride 1,000 ml @ 75 mls/hr [id number] IV 06/17/17 01:52 07/17/17 01:51 06/23/17 03:56 Diphenhydramine HCl (Benadryl) 25 mg Q6H PRN ORAL Itching/Pruritis 06/16/17 22:00 07/16/17 21:59 Haloperidol Decanoate (Haldol) 50 mg [id number] IM 06/17/17 18:00 07/17/17 17:59 06/17/17 18:27 Heparin Sodium (Porcine) (Heparin 5000 units/ml) 5,000 units EVERY 12 HOURS SUBQ 06/17/17 09:00 07/17/17 08:59 06/20/17 21:57 Lorazepam (Ativan 2mg/ml 1ml) 1 mg Q4H PRN IV agitation 06/16/17 22:00 06/23/17 21:59 Morphine Sulfate (Morphine Sulfate) 2 mg Q4H PRN IVP severe Pain (Pain Scale 7-10) 06/16/17 22:00 06/23/17 21:59 Nitroglycerin (Ntg) 0.4 mg Q5M X 3 DOSES PRN SL Prn Chest Pain 06/16/17 22:00 07/16/17 21:59 Olanzapine (ZyPREXA) 5 mg BID GT 06/17/17 18:00 07/17/17 08:59 Ondansetron HCl (Zofran) 4 mg Q6H PRN IVP Nausea & Vomiting 06/16/17 22:00 07/16/17 21:59 Pantoprazole (Protonix) 40 mg DAILY IV 06/17/17 09:00 07/17/17 08:59 Polyethylene Glycol (Miralax) 17 gm HSPRN PRN ORAL Constipation 06/16/17 22:00 07/16/17 21:59 Promethazine HCl (Phenergan) 25 mg Q8H PRN IV refractory nausea 06/16/17 22:00 07/16/17 21:59 Temazepam (Restoril) 15 mg HSPRN PRN ORAL Insomnia 06/16/17 22:00 06/23/17 21:59 Bean ([facility])Brooke NP Jun 23, 2017 07:44
[2017-06-23 08:15] VITALS: BP 93/55
[2017-06-23] MEDS: Heparin 5000 units/ml inj SUBQ SCH ×2 (08:40→21:00)
[2017-06-23] MEDS: Pantoprazole Inj IV SCH (08:40)
--- NOTE | 2017-06-23 11:11 | GI Progress Note ---
Assessment/Plan Problems: (1) Episode of generalized weakness ICD Codes: R53.1 - Weakness SNOMED: 26089008 (2) Altered mental status ICD Codes: R41.82 - Altered mental status, unspecified SNOMED: 200963973 (3) Affective bipolar disorder ICD Codes: F31.9 - Affective bipolar disorder SNOMED: 27815182 (4) probably multiple sclerosis Status: not improved, unchanged Status Narrative Discussed with Dr. Allen. Assessment/Plan fu bioethics >> will consider GI procedures pending decision. at this time, the patient has refused all care which includes, but not limited to NGT or GT placement, meds, VS, etc. refusing to eat, will order trial FLD try to bedside with strict aspiration precautions and feeder. fu psych fu public health social worker Subjective Subjective refusing all care Objective Last 24 Hour Vital Signs Date Time Temp Pulse Resp B/P (MAP) Pulse Ox O2 Delivery O2 Flow Rate FiO2 06/23/17 08:15 97.3 75 20 93/55 95 Room Air 06/23/17 04:00 97.7 101 20 102/64 100 06/23/17 00:00 97.7 68 20 106/60 96 06/22/17 20:00 97.9 67 20 104/60 98 06/22/17 16:16 98.0 65 20 106/70 100 06/22/17 12:00 98.1 64 20 106/69 98 Intake and Output 06/22/17 06/23/17 19:00 07:00 Intake Total 825 ml 900 ml Balance 825 ml 900 ml Intake Oral 0 ml IV Total 825 ml 900 ml # Voids 4 3 Height (Feet): 5 Height (Inches): 4.00 Weight (Pounds): 170 Malgorzata Willis NSuha Jun 23, 2017 11:11
[2017-06-23 11:58] VITALS: BP 116/70
--- NOTE | 2017-06-23 12:58 | General Progress Note ---
Progress Note Progress Note Bioethic Committee We are asked to comment on whether a G-tube should be placed in this patient who is unrepresented and deemed incompetent to make medical decisions for herself. She is unable to take oral feedings and currently on IV fluids which she accepts. She states that the previous G tube hurt and denies having pulled it out.Furthermore she states that if another G-tube is placed she will pull it out. It does not seem that she is trying to by refusing the tube but rather her complaint of pain. In her present state of mind it does not appear that reassurances of pain management will change her mind. She was angry and aggressive when asked baout this. The Committee is of the opinion that a G-tube should not be placed at this time. There is risk in the procedure, albeit small , however medical risk is not worth accepting if she promptly pulls out the tube. She could be transferred back to the snf by ambulance and then to a facility which has med/psych where the issue of a feeding tube could be further explored and resolved. Garfield Brownlee M.D Chair, Bioethics Committee GARFIELD BROWNLEE Jun 23, 2017 12:58
--- NOTE | 2017-06-23 15:18 | Progress Note ---
DATE: 06/23/2017 SUBJECTIVE: This is a 46-year-old female patient with G-tube malfunction. She continues to have some lability, confusion, disorganized thought process secondary to progression of her medical illness that is why she does require inpatient treatment. She has feelings of helplessness, hopelessness, low energy, poor appetite, and lost of interest in activity. MENTAL STATUS EXAMINATION: This is a 46-year-old female patient with psychomotor agitation. Mood irritable and agitated. Affect is flat. Thought process is disorganized and illogical. She did endorse intermittent suicidal ideation. Denies homicidal ideation. Insight and judgment is poor. DIAGNOSIS: Paranoid schizophrenia with acute exacerbation. PLAN: Continue on Zyprexa and also Continue Haldol decanoate 50 mg IM every two weeks to prevent any further decline in cognition. Chart reviewed and discussed with staff. The patient seen and assessed at bedside. Sivan Banks M.D. DR: LACY JOB#: [id number] CC:
[2017-06-23 16:00] VITALS: BP 122/74
[2017-06-23] MEDS ORDERED: ZYPREXA5 MG ORAL (16:08)
[2017-06-23] MEDS ORDERED: ZYPREXA5 MG GT (16:09)
[2017-06-23] MEDS ORDERED: [UNRECOGNIZED DRUG - OTHER] (16:13)
[2017-06-23 20:00] VITALS: BP 107/69
--- NOTE | 2017-06-23 21:08 | General Progress Note ---
Assessment/Plan Problem List: (1) r/o collagen vascular disease (2) r/o chronic high school coordinator infection (3) Affective bipolar disorder ICD Codes: F31.9 - Affective bipolar disorder SNOMED: 57295999 (4) probably multiple sclerosis (5) Malfunction of gastrostomy tube ICD Codes: K94.23 - Gastrostomy malfunction SNOMED: 408468379 (6) Altered mental status ICD Codes: R41.82 - Altered mental status, unspecified SNOMED: 035664724 (7) Episode of generalized weakness ICD Codes: R53.1 - Weakness SNOMED: 27032862 (8) Gastrostomy tube dysfunction ICD Codes: K94.23 - Gastrostomy malfunction SNOMED: 169649837 Status: progressing Assessment/Plan confused h/o chronic high school coordinator infection r/o MS DYSPHAGIA REVIEWED CHART Subjective ROS Limited/Unobtainable: Yes Allergies: Coded Allergies: No Known Allergies (Unverified , 02/21/14) Objective Last 24 Hour Vital Signs Date Time Temp Pulse Resp B/P (MAP) Pulse Ox O2 Delivery O2 Flow Rate FiO2 06/23/17 16:00 98.4 82 122/74 98 06/23/17 11:58 97.5 59 20 116/70 95 Room Air 06/23/17 08:15 97.3 75 20 93/55 95 Room Air 06/23/17 04:00 97.7 101 20 102/64 100 06/23/17 00:00 97.7 68 20 106/60 96 Intake and Output 06/22/17 06/23/17 19:00 07:00 Intake Total 825 ml 900 ml Balance 825 ml 900 ml Intake Oral 0 ml IV Total 825 ml 900 ml # Voids 4 3 Height (Feet): 5 Height (Inches): 4.00 Weight (Pounds): 170 Cardiovascular: normal rate, regular rhythm Respiratory/Chest: chest wall non-tender Abdomen: soft Michelle Ko MD Jun 23, 2017 21:08
[2017-06-23] MEDS ORDERED: [UNRECOGNIZED DRUG - MIXTURE] IVINF (22:29)
[2017-06-24] VITALS (9 sets, daily range): BP systolic 88–123; BP diastolic 47–77
[2017-06-24] MEDS ORDERED: LORazepam Inj 2mg/ml 1ml IM ONE (02:00)
[2017-06-24] MEDS ORDERED: DiphenhydrAMINE 50mg/ml Inj IM ONE (02:00)
[2017-06-24] MEDS ORDERED: Haloperidol 5mg/ml Inj IM ONE (02:15)
[2017-06-24] MEDS: D5 1/2NS 1,000 ML IV SCH ×3 (07:12→20:32)
--- NOTE | 2017-06-24 07:14 | General Progress Note ---
Assessment/Plan Problem List: (1) FTT (failure to thrive) in adult ICD Codes: R62.7 - Adult failure to thrive SNOMED: 900481625 (2) Affective bipolar disorder ICD Codes: F31.9 - Affective bipolar disorder SNOMED: 76193449 Assessment/Plan refusing eating Bioethics voted againts PEG add marinol Subjective ROS Limited/Unobtainable: Yes Allergies: Coded Allergies: No Known Allergies (Unverified , 02/21/14) Subjective refusing meds poor po intake Objective Last 24 Hour Vital Signs Date Time Temp Pulse Resp B/P (MAP) Pulse Ox O2 Delivery O2 Flow Rate FiO2 06/24/17 04:00 Room Air 06/24/17 04:00 97.7 99 20 103/68 98 06/24/17 03:30 95/63 Room Air 06/24/17 03:15 93/65 Room Air 06/24/17 03:00 106/77 Room Air 06/24/17 00:00 Room Air 06/24/17 00:00 97.9 95 20 123/69 98 06/23/17 20:00 Room Air 06/23/17 20:00 97.7 68 20 107/69 95 06/23/17 16:00 98.4 82 122/74 98 06/23/17 11:58 97.5 59 20 116/70 95 Room Air 06/23/17 08:15 97.3 75 20 93/55 95 Room Air Intake and Output 06/23/17 06/24/17 19:00 07:00 Intake Total 240 ml 150 ml Balance 240 ml 150 ml Intake Oral 240 ml IV Total 150 ml # Voids 9 2 Height (Feet): 5 Height (Inches): 4.00 Weight (Pounds): 170 General Appearance: no apparent distress EENT: normal ENT inspection Neck: supple Cardiovascular: normal rate Respiratory/Chest: decreased breath sounds Abdomen: normal bowel sounds, non tender, soft Extremities: non-tender MARQUISE HUNTER Jun 24, 2017 07:14
[2017-06-24] MEDS ORDERED: Haloperidol Decanoate 50mg Inj IM ONE (08:00)
[2017-06-24] MEDS: Dronabinol 2.5mg Cap ORAL SCH ×3 (09:00→18:00)
[2017-06-24] MEDS: Heparin 5000 units/ml inj SUBQ SCH ×2 (09:26→21:00)
[2017-06-24] MEDS: Pantoprazole Inj IV SCH (09:26)
--- NOTE | 2017-06-24 13:06 | Pulmonology Progress Note ---
Assessment/Plan Assessment/Plan ASSESSMENT Paranoid schizophrenia with acute exacerbation Noncompliance G tube malfunction( pulled out) Probable MS ( based on prior imaging) PLAN OF CARE MS floor pulled out GT declining any interventions: NGT, GT, labs, refusing to eat Psych follows psych deemed incapable to make any informed decisions Psych meds optimized, pt not taking Pending transfer to psych facility when medically stable GI follows, suspecting psychogenic cause of anorexia not physical, Bioethics voted against PEG PT/OT Symptomatic treatment, dc plan as pr PMD case discussed and evaluated by supervising physician Subjective Allergies: Coded Allergies: No Known Allergies (Unverified , 02/21/14) Subjective admits to not eating denies food, blood draw, NG/GT placement denies CP SOB, palpitations non-ambulatory Objective Last 24 Hour Vital Signs Date Time Temp Pulse Resp B/P (MAP) Pulse Ox O2 Delivery O2 Flow Rate FiO2 06/24/17 12:15 97.7 112 20 100/62 97 Room Air 06/24/17 08:00 98.7 104 18 99/64 97 06/24/17 04:00 Room Air 06/24/17 04:00 97.7 99 20 103/68 98 06/24/17 03:30 95/63 Room Air 06/24/17 03:15 93/65 Room Air 06/24/17 03:00 106/77 Room Air 06/24/17 00:00 Room Air 06/24/17 00:00 97.9 95 20 123/69 98 06/23/17 20:00 Room Air 06/23/17 20:00 97.7 68 20 107/69 95 06/23/17 16:00 98.4 82 122/74 98 Intake and Output 06/23/17 06/24/17 19:00 07:00 Intake Total 240 ml 300 ml Balance 240 ml 300 ml Intake Oral 240 ml IV Total 300 ml # Voids 9 2 Objective General Appearance: no acute distress, other - awake, alert, responsive, poor eye contact AA bedridden female i NAD HEENT: normocephalic, atraumatic, anicteric Respiratory/Chest: lungs clear, no respiratory distress, no accessory muscle use Cardiovascular: normal rate, regular rhythm, no JVD Abdomen: normal bowel sounds, soft, non tender, other - old G tube site healing Neurologic/Psychiatric: abnormal gait - bedriddebn , alert, responsive - poor eye contact, other - moves all extremities, Musculoskeletal: atrophy - BLE Current Medications Medications (Trade) Dose Ordered Sig/Sanju Route PRN Reason Start Time Stop Time Status Last Admin Dose Admin Acetaminophen (Tylenol) 650 mg Q4H PRN ORAL fever 06/16/17 22:00 07/16/17 21:59 Al Hydroxide/Mg Hydroxide (Mylanta II) 30 ml Q6H PRN ORAL dyspepsia 06/16/17 22:00 07/16/17 21:59 Dextrose (Dextrose 50%) STAT PRN IV Hypoglycemia 06/16/17 22:00 07/16/17 21:59 Dextrose/Sodium Chloride 1,000 ml @ 75 mls/hr [id number] IV 06/17/17 01:52 07/17/17 01:51 06/23/17 17:24 Diphenhydramine HCl (Benadryl) 25 mg Q6H PRN ORAL Itching/Pruritis 06/16/17 22:00 07/16/17 21:59 Dronabinol (Marinol) 2.5 mg TID ORAL 06/24/17 09:00 07/24/17 08:59 Haloperidol Decanoate (Haldol) 50 mg [id number] IM 06/17/17 18:00 07/17/17 17:59 06/17/17 18:27 Heparin Sodium (Porcine) (Heparin 5000 units/ml) 5,000 units EVERY 12 HOURS SUBQ 06/17/17 09:00 07/17/17 08:59 06/24/17 09:26 Nitroglycerin (Ntg) 0.4 mg Q5M X 3 DOSES PRN SL Prn Chest Pain 06/16/17 22:00 07/16/17 21:59 Olanzapine (ZyPREXA) 5 mg BID GT 06/17/17 18:00 07/17/17 08:59 Ondansetron HCl (Zofran) 4 mg Q6H PRN IVP Nausea & Vomiting 06/16/17 22:00 07/16/17 21:59 Pantoprazole (Protonix) 40 mg DAILY IV 06/17/17 09:00 07/17/17 08:59 06/24/17 09:26 Polyethylene Glycol (Miralax) 17 gm HSPRN PRN ORAL Constipation 06/16/17 22:00 07/16/17 21:59 Promethazine HCl (Phenergan) 25 mg Q8H PRN IV refractory nausea 06/16/17 22:00 07/16/17 21:59 Bean ([facility]),Brooke YUSUF Jun 24, 2017 13:06
--- NOTE | 2017-06-24 16:02 | General Progress Note ---
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 (3) Affective bipolar disorder ICD Codes: F31.9 - Affective bipolar disorder SNOMED: 66749598 (4) probably multiple sclerosis (5) Malfunction of gastrostomy tube ICD Codes: K94.23 - Gastrostomy malfunction SNOMED: 544417098 (6) Altered mental status ICD Codes: R41.82 - Altered mental status, unspecified SNOMED: 185571904 (7) Episode of generalized weakness ICD Codes: R53.1 - Weakness SNOMED: 79934578 (8) Gastrostomy tube dysfunction ICD Codes: K94.23 - Gastrostomy malfunction SNOMED: 921848819 Status: progressing Assessment/Plan poor historian malfunction of peg reviewed chart and labs and meds h/o chronic internet ecommerce specialist infection r/o MS Subjective ROS Limited/Unobtainable: Yes Allergies: Coded Allergies: No Known Allergies (Unverified , 02/21/14) Objective Last 24 Hour Vital Signs Date Time Temp Pulse Resp B/P (MAP) Pulse Ox O2 Delivery O2 Flow Rate FiO2 06/24/17 12:15 97.7 112 20 100/62 97 Room Air 06/24/17 08:00 98.7 104 18 99/64 97 06/24/17 04:00 Room Air 06/24/17 04:00 97.7 99 20 103/68 98 06/24/17 03:30 95/63 Room Air 06/24/17 03:15 93/65 Room Air 06/24/17 03:00 106/77 Room Air 06/24/17 00:00 Room Air 06/24/17 00:00 97.9 95 20 123/69 98 06/23/17 20:00 Room Air 06/23/17 20:00 97.7 68 20 107/69 95 Intake and Output 06/23/17 06/24/17 19:00 07:00 Intake Total 240 ml 300 ml Balance 240 ml 300 ml Intake Oral 240 ml IV Total 300 ml # Voids 9 2 Height (Feet): 5 Height (Inches): 4.00 Weight (Pounds): 170 Cardiovascular: normal rate Respiratory/Chest: lungs clear Abdomen: soft Michelle Ko MD Jun 24, 2017 16:02
[2017-06-24] MEDS ORDERED: D5 1/2NS 1000ml IV ONE ×2 (22:56)
[2017-06-25] VITALS: BP 99/58
[2017-06-25 04:00] VITALS: BP 96/62
--- NOTE | 2017-06-25 04:45 | Consultation ---
DATE OF CONSULTATION: 06/24/2017 HISTORY OF PRESENT ILLNESS: This is a 46-year-old female patient. She is status post G-tube malfunction, but this patient has been very irritable and agitated at bedside. I saw and assessed her today, 06/24/2017. Very irritable, agitated, extremely mood labile, and refusing care. She is getting very agitated and cognition appears to be declined and below baseline refusing her psychotropic medications and that is why, daily psychiatric consultation requested by the patient's attending physician. MENTAL STATUS EXAMINATION: This is a 46-year-old female with psychomotor agitation. Mood is irritable and agitated. Affect guarded and restricted. Thought process is disorganized and illogical. She has intermittent suicidal ideation. Denies homicidal ideation. Insight and judgment is poor. DIAGNOSIS: Paranoid schizophrenia with acute exacerbation. PLAN: My plan for this patient is to treat her with a medication regimen consisting of Zyprexa 5 mg twice a day and treat her with a medication regimen of Haldol Decanoate 50 mg IM every month. Provide her with supportive therapy. Encourage her to interact appropriately with staff. Chart reviewed. Discussed with staff. Also, I recommend transfer to psych once she is medically cleared. Supportive therapy provided. Seen and assessed at bedside. She will continue to be followed by Psychiatry throughout hospital course. Sivan Banks M.D. DR: SUKUMAR JOB#: [id number] CC:
[2017-06-25] MEDS: D5 1/2NS 1,000 ML IV SCH ×3 (05:00→19:03)
--- NOTE | 2017-06-25 07:46 | General Progress Note ---
Assessment/Plan Problem List: (1) FTT (failure to thrive) in adult ICD Codes: R62.7 - Adult failure to thrive SNOMED: 609551696 (2) Affective bipolar disorder ICD Codes: F31.9 - Affective bipolar disorder SNOMED: 95843375 Assessment/Plan refusing eating Bioethics voted agains PEG marinol added Subjective ROS Limited/Unobtainable: No Allergies: Coded Allergies: No Known Allergies (Unverified , 02/21/14) Subjective refusing meds poor po intake Objective Last 24 Hour Vital Signs Date Time Temp Pulse Resp B/P (MAP) Pulse Ox O2 Delivery O2 Flow Rate FiO2 06/25/17 04:00 98.7 99 20 96/62 100 Room Air 06/25/17 00:00 99.0 92 20 99/58 99 Room Air 06/24/17 20:00 98.6 100 18 106/64 99 Room Air 06/24/17 16:14 97.3 100 20 88/47 97 Room Air 06/24/17 12:15 97.7 112 20 100/62 97 Room Air 06/24/17 08:00 98.7 104 18 99/64 97 Intake and Output 06/24/17 06/25/17 19:00 07:00 Intake Total 1020 ml 825 ml Balance 1020 ml 825 ml Intake Oral 120 ml IV Total 900 ml 825 ml # Voids 5 2 # Bowel Movements 1 Height (Feet): 5 Height (Inches): 4.00 Weight (Pounds): 170 General Appearance: no apparent distress EENT: normal ENT inspection Neck: supple Cardiovascular: normal rate Respiratory/Chest: decreased breath sounds Abdomen: normal bowel sounds, non tender, soft Extremities: non-tender MARQUISE HUNTER Jun 25, 2017 07:46
[2017-06-25 08:00] VITALS: BP 89/46
[2017-06-25] MEDS: Dronabinol 2.5mg Cap ORAL SCH ×3 (09:00→18:00)
[2017-06-25] MEDS: Heparin 5000 units/ml inj SUBQ SCH ×2 (09:00→21:00)
[2017-06-25] MEDS: Pantoprazole Inj IV SCH (09:00)
--- NOTE | 2017-06-25 10:43 | Pulmonology Progress Note ---
Assessment/Plan Assessment/Plan ASSESSMENT Paranoid schizophrenia with acute exacerbation Noncompliance G tube malfunction( pulled out) Probable MS ( based on prior imaging) PLAN OF CARE MS floor pulled out GT declining any interventions: NGT, GT, labs, refusing to eat Psych follows psych deemed incapable to make any informed decisions Psych meds optimized, pt not taking Pending transfer to psych facility when medically stable GI follows, suspecting psychogenic cause of anorexia not physical, Bioethics voted against PEG PT/OT Symptomatic treatment, dc plan as pr PMD case discussed and evaluated by supervising physician Subjective Allergies: Coded Allergies: No Known Allergies (Unverified , 02/21/14) Subjective admits to not eating denies food, blood draw, NG/GT placement denies CP SOB, palpitations non-ambulatory continues to deny all care Objective Last 24 Hour Vital Signs Date Time Temp Pulse Resp B/P (MAP) Pulse Ox O2 Delivery O2 Flow Rate FiO2 06/25/17 08:00 100.6 103 17 89/46 98 06/25/17 04:00 98.7 99 20 96/62 100 Room Air 06/25/17 00:00 99.0 92 20 99/58 99 Room Air 06/24/17 20:00 98.6 100 18 106/64 99 Room Air 06/24/17 16:14 97.3 100 20 88/47 97 Room Air 06/24/17 12:15 97.7 112 20 100/62 97 Room Air Intake and Output 06/24/17 06/25/17 19:00 07:00 Intake Total 1020 ml 825 ml Balance 1020 ml 825 ml Intake Oral 120 ml IV Total 900 ml 825 ml # Voids 5 2 # Bowel Movements 1 Objective General Appearance: no acute distress, other - awake, alert, responsive, poor eye contact AA bedridden female i NAD HEENT: normocephalic, atraumatic, anicteric Respiratory/Chest: lungs clear, no respiratory distress, no accessory muscle use Cardiovascular: normal rate, regular rhythm, no JVD Abdomen: normal bowel sounds, soft, non tender, other - old G tube site healing Neurologic/Psychiatric: abnormal gait - bedriddebn , alert, responsive - poor eye contact, other - moves all extremities, Musculoskeletal: atrophy - BLE Current Medications Medications (Trade) Dose Ordered Sig/Sanju Route PRN Reason Start Time Stop Time Status Last Admin Dose Admin Acetaminophen (Tylenol) 650 mg Q4H PRN ORAL fever 06/16/17 22:00 07/16/17 21:59 Al Hydroxide/Mg Hydroxide (Mylanta II) 30 ml Q6H PRN ORAL dyspepsia 06/16/17 22:00 07/16/17 21:59 Dextrose (Dextrose 50%) STAT PRN IV Hypoglycemia 06/16/17 22:00 07/16/17 21:59 Dextrose/Sodium Chloride 1,000 ml @ 75 mls/hr [id number] IV 06/17/17 01:52 07/17/17 01:51 06/25/17 10:34 Diphenhydramine HCl (Benadryl) 25 mg Q6H PRN ORAL Itching/Pruritis 06/16/17 22:00 07/16/17 21:59 Dronabinol (Marinol) 2.5 mg TID ORAL 06/24/17 09:00 07/24/17 08:59 Haloperidol Decanoate (Haldol) 50 mg [id number] IM 06/17/17 18:00 07/17/17 17:59 06/17/17 18:27 Heparin Sodium (Porcine) (Heparin 5000 units/ml) 5,000 units EVERY 12 HOURS SUBQ 06/17/17 09:00 07/17/17 08:59 06/24/17 09:26 Nitroglycerin (Ntg) 0.4 mg Q5M X 3 DOSES PRN SL Prn Chest Pain 06/16/17 22:00 07/16/17 21:59 Olanzapine (ZyPREXA) 5 mg BID ORAL 06/25/17 09:00 07/25/17 08:59 Ondansetron HCl (Zofran) 4 mg Q6H PRN IVP Nausea & Vomiting 06/16/17 22:00 07/16/17 21:59 Pantoprazole (Protonix) 40 mg DAILY IV 06/17/17 09:00 07/17/17 08:59 06/24/17 09:26 Polyethylene Glycol (Miralax) 17 gm HSPRN PRN ORAL Constipation 06/16/17 22:00 07/16/17 21:59 Promethazine HCl (Phenergan) 25 mg Q8H PRN IV refractory nausea 06/16/17 22:00 07/16/17 21:59 Bean ([facility])Brooke NP Jun 25, 2017 10:43
[2017-06-25 12:00] VITALS: BP 92/61
--- NOTE | 2017-06-25 12:45 | Progress Note ---
DATE: 06/25/2017 NOTE: Poor audio/Multiple blanks SUBJECTIVE: This is a 46-year-old female patient with G-tube malfunction. She has some mood lability, confusion, disorganized thought process, poor cognition secondary to progression of her medical illness. MENTAL STATUS EXAMINATION: This is a 46-year-old female with psychomotor agitation. Mood is irritable and agitated. Affect is guarded and restricted. Thought process is disorganized and illogical. No signs of any suicidal or homicidal thoughts. Insight and judgment is poor. DIAGNOSIS: Paranoid schizophrenia with acute exacerbation. PLAN: Continue with current psychotropic medications with Zyprexa 5 per G-tube twice a day. Also continue Haldol decanoate 50 mg IM every two weeks to stabilize her mood agitation. attending physician has requested daily psychiatric consultation . Chart reviewed and discussed with staff. Supportive therapy provided. Seen and assessed at bedside. Sivan Banks M.D. DR: LACY JOB#: [id number] CC:
[2017-06-25 16:15] VITALS: BP 98/64
[2017-06-25 20:00] VITALS: BP 98/63
--- NOTE | 2017-06-25 22:38 | General Progress Note ---
Assessment/Plan Problem List: (1) r/o collagen vascular disease (2) r/o chronic developer advisor infection (3) Affective bipolar disorder ICD Codes: F31.9 - Affective bipolar disorder SNOMED: 65608914 (4) probably multiple sclerosis (5) Malfunction of gastrostomy tube ICD Codes: K94.23 - Gastrostomy malfunction SNOMED: 833229241 (6) Altered mental status ICD Codes: R41.82 - Altered mental status, unspecified SNOMED: 722797589 (7) Episode of generalized weakness ICD Codes: R53.1 - Weakness SNOMED: 22642080 (8) Gastrostomy tube dysfunction ICD Codes: K94.23 - Gastrostomy malfunction SNOMED: 880797801 Status: progressing Assessment/Plan afebrile no acute events abx per id h/o chronic developer advisor infection Subjective ROS Limited/Unobtainable: Yes Allergies: Coded Allergies: No Known Allergies (Unverified , 02/21/14) Objective Last 24 Hour Vital Signs Date Time Temp Pulse Resp B/P (MAP) Pulse Ox O2 Delivery O2 Flow Rate FiO2 06/25/17 20:00 100.6 67 18 98/63 98 Room Air 06/25/17 16:15 97.6 77 21 98/64 97 Room Air 06/25/17 12:00 99.4 87 18 92/61 98 Room Air 06/25/17 08:00 100.6 103 17 89/46 98 06/25/17 04:00 98.7 99 20 96/62 100 Room Air 06/25/17 00:00 99.0 92 20 99/58 99 Room Air Intake and Output 06/24/17 06/25/17 19:00 07:00 Intake Total 1020 ml 900 ml Balance 1020 ml 900 ml Intake Oral 120 ml IV Total 900 ml 900 ml # Voids 5 2 # Bowel Movements 1 Height (Feet): 5 Height (Inches): 4.00 Weight (Pounds): 170 Respiratory/Chest: lungs clear Abdomen: soft Michelle Ko MD Jun 25, 2017 22:38
[2017-06-26] VITALS: BP 94/68
[2017-06-26 04:00] VITALS: BP 100/64
[2017-06-26 08:55] VITALS: BP 102/64
[2017-06-26] MEDS: Pantoprazole Inj IV SCH (09:00)
[2017-06-26] MEDS: Heparin 5000 units/ml inj SUBQ SCH ×2 (09:00→20:25)
[2017-06-26] MEDS: Dronabinol 2.5mg Cap ORAL SCH ×3 (09:00→18:00)
[2017-06-26] MEDS: D5 1/2NS 1,000 ML IV SCH (11:05)
[2017-06-26 11:17] VITALS: BP 112/62
--- NOTE | 2017-06-26 13:55 | General Progress Note ---
Assessment/Plan Problem List: (1) Episode of generalized weakness ICD Codes: R53.1 - Weakness SNOMED: 60567159 (2) Altered mental status ICD Codes: R41.82 - Altered mental status, unspecified SNOMED: 802968998 (3) Gastrostomy tube dysfunction ICD Codes: K94.23 - Gastrostomy malfunction SNOMED: 955525604 (4) Affective bipolar disorder ICD Codes: F31.9 - Affective bipolar disorder SNOMED: 24821526 (5) probably multiple sclerosis Status: unchanged Assessment/Plan ot pt diet gi f/u psyc tx cbc bmp am hospice eval Subjective Constitutional: Reports: weakness Allergies: Coded Allergies: No Known Allergies (Unverified , 02/21/14) All Systems: reviewed and negative except above Subjective sleepy calm Objective Last 24 Hour Vital Signs Date Time Temp Pulse Resp B/P (MAP) Pulse Ox O2 Delivery O2 Flow Rate FiO2 06/26/17 11:17 97.7 65 18 112/62 98 Room Air 06/26/17 08:55 100.7 77 17 102/64 99 Room Air 06/26/17 04:00 99.4 82 19 100/64 99 06/26/17 00:00 98.6 83 19 94/68 98 Room Air 06/25/17 20:00 100.6 67 18 98/63 98 Room Air 06/25/17 16:15 97.6 77 21 98/64 97 Room Air Intake and Output 06/25/17 06/26/17 19:00 07:00 Intake Total 982 ml 675 ml Balance 982 ml 675 ml Intake Oral 120 ml IV Total 862 ml 675 ml # Voids 4 4 # Bowel Movements 1 Height (Feet): 5 Height (Inches): 4.00 Weight (Pounds): 170 General Appearance: lethargic, confused EENT: normal ENT inspection Neck: normal alignment Cardiovascular: normal peripheral pulses, normal rate, regular rhythm Respiratory/Chest: chest wall non-tender, lungs clear, normal breath sounds Abdomen: normal bowel sounds, non tender, soft Extremities: normal inspection Edema: no edema noted Arm (L), no edema noted Arm (R), no edema noted Leg (L), no edema noted Leg (R), no edema noted Pedal (L), no edema noted Pedal (R), no edema noted Generalized Neurologic: motor weakness Skin: normal pigmentation, warm/dry NATHAN BE Jun 26, 2017 13:55
--- NOTE | 2017-06-26 15:51 | Pulmonology Progress Note ---
Assessment/Plan Problems: (1) Malfunction of gastrostomy tube (2) Affective bipolar disorder (3) probably multiple sclerosis Assessment/Plan looks comfortable check electrolytes psych evaluation. GI f/u dvt prophylaxis symptomatic treatment. ethics recommendations reviewed Subjective ROS Limited/Unobtainable: No Allergies: Coded Allergies: No Known Allergies (Unverified , 02/21/14) Objective Last 24 Hour Vital Signs Date Time Temp Pulse Resp B/P (MAP) Pulse Ox O2 Delivery O2 Flow Rate FiO2 06/26/17 11:17 97.7 65 18 112/62 98 Room Air 06/26/17 08:55 100.7 77 17 102/64 99 Room Air 06/26/17 04:00 99.4 82 19 100/64 99 06/26/17 00:00 98.6 83 19 94/68 98 Room Air 06/25/17 20:00 100.6 67 18 98/63 98 Room Air 06/25/17 16:15 97.6 77 21 98/64 97 Room Air Intake and Output 06/25/17 06/26/17 19:00 07:00 Intake Total 982 ml 675 ml Balance 982 ml 675 ml Intake Oral 120 ml IV Total 862 ml 675 ml # Voids 4 4 # Bowel Movements 1 Objective General Appearance: WD/WN HEENT: normocephalic, atraumatic Respiratory/Chest: chest wall non-tender, lungs clear Cardiovascular: normal peripheral pulses, normal rate Abdomen: normal bowel sounds, soft, non tender Genitourinary: normal external genitalia Extremities: no cyanosis Lymphatic: no neck adenopathy Current Medications Medications (Trade) Dose Ordered Sig/Sanju Route PRN Reason Start Time Stop Time Status Last Admin Dose Admin Acetaminophen (Tylenol) 650 mg Q4H PRN ORAL fever 06/16/17 22:00 07/16/17 21:59 Al Hydroxide/Mg Hydroxide (Mylanta II) 30 ml Q6H PRN ORAL dyspepsia 06/16/17 22:00 07/16/17 21:59 Dextrose (Dextrose 50%) STAT PRN IV Hypoglycemia 06/16/17 22:00 07/16/17 21:59 Dextrose/Sodium Chloride 1,000 ml @ 75 mls/hr [id number] IV 06/17/17 01:52 07/17/17 01:51 06/26/17 11:05 Diphenhydramine HCl (Benadryl) 25 mg Q6H PRN ORAL Itching/Pruritis 06/16/17 22:00 07/16/17 21:59 Dronabinol (Marinol) 2.5 mg TID ORAL 06/24/17 09:00 07/24/17 08:59 Haloperidol Decanoate (Haldol) 50 mg [id number] IM 06/17/17 18:00 07/17/17 17:59 06/17/17 18:27 Heparin Sodium (Porcine) (Heparin 5000 units/ml) 5,000 units EVERY 12 HOURS SUBQ 06/17/17 09:00 07/17/17 08:59 06/24/17 09:26 Nitroglycerin (Ntg) 0.4 mg Q5M X 3 DOSES PRN SL Prn Chest Pain 06/16/17 22:00 07/16/17 21:59 Olanzapine (ZyPREXA) 5 mg BID ORAL 06/25/17 09:00 07/25/17 08:59 Ondansetron HCl (Zofran) 4 mg Q6H PRN IVP Nausea & Vomiting 06/16/17 22:00 07/16/17 21:59 Pantoprazole (Protonix) 40 mg DAILY IV 06/17/17 09:00 07/17/17 08:59 06/24/17 09:26 Polyethylene Glycol (Miralax) 17 gm HSPRN PRN ORAL Constipation 06/16/17 22:00 07/16/17 21:59 Promethazine HCl (Phenergan) 25 mg Q8H PRN IV refractory nausea 06/16/17 22:00 07/16/17 21:59 ANGE PAZ Jun 26, 2017 15:51
--- NOTE | 2017-06-26 15:59 | GI Progress Note ---
Assessment/Plan Problems: (1) Episode of generalized weakness ICD Codes: R53.1 - Weakness SNOMED: 38528256 (2) Altered mental status ICD Codes: R41.82 - Altered mental status, unspecified SNOMED: 737175483 (3) Affective bipolar disorder ICD Codes: F31.9 - Affective bipolar disorder SNOMED: 99074928 (4) probably multiple sclerosis Status: not improved, unchanged Status Narrative Discussed with Dr. Allen. Assessment/Plan okay for DC per GI standpoint refusing eating Bioethics voted agains PEG marinol added fu psych fu social services specialist Subjective Subjective refusing all care Objective Last 24 Hour Vital Signs Date Time Temp Pulse Resp B/P (MAP) Pulse Ox O2 Delivery O2 Flow Rate FiO2 06/26/17 11:17 97.7 65 18 112/62 98 Room Air 06/26/17 08:55 100.7 77 17 102/64 99 Room Air 06/26/17 04:00 99.4 82 19 100/64 99 06/26/17 00:00 98.6 83 19 94/68 98 Room Air 06/25/17 20:00 100.6 67 18 98/63 98 Room Air 06/25/17 16:15 97.6 77 21 98/64 97 Room Air Intake and Output 06/25/17 06/26/17 19:00 07:00 Intake Total 982 ml 675 ml Balance 982 ml 675 ml Intake Oral 120 ml IV Total 862 ml 675 ml # Voids 4 4 # Bowel Movements 1 Height (Feet): 5 Height (Inches): 4.00 Weight (Pounds): 170 Malgorzata Willis NBatshevaPBatsheva Jun 26, 2017 15:59
[2017-06-26 16:00] VITALS: BP 93/46
--- NOTE | 2017-06-26 22:15 | Progress Note ---
DATE: 06/26/2017 NOTE: POOR AUDIO SUBJECTIVE: The patient is a 46-year-old female patient. She emergently came in because of G-tube malfunction, but she was refusing care at the unit. Denies any irritable mood labile. I saw and assessed her at bedside. She is markedly has a flat affect and then when I talked to her about medications, she just shakes her head "no" and then turns around. seems to have very poor insight into her illness. MENTAL STATUS EXAMINATION: This is a 46-year-old female with psychomotor agitation. Mood is irritable and agitated. Affect is flat. Thought process is disorganized and illogical. Thought content, she has paranoid delusions . No signs of any suicidal or homicidal thoughts. Insight and judgment is poor. DIAGNOSIS: Paranoid schizophrenia. PLAN: Treat her with Haldol decanoate 50 mg IM every two weeks to reduce agitation and irritability and also Zyprexa 5 mg twice a day to reduce psychosis as well and provide her with supportive therapy and behavioral management and encourage her to interact appropriately with staff and other patients. The patient was seen and assessed at the bedside. Supportive therapy provided. Chart was reviewed and discussed with staff. Sivan Banks M.D. DR: LACY JOB#: [id number] CC:
[2017-06-27] VITALS: BP 96/55
[2017-06-27] MEDS: D5 1/2NS 1,000 ML IV SCH ×2 (01:39→15:11)
[2017-06-27 04:00] VITALS: BP 106/58
[2017-06-27 08:35] VITALS: BP 115/57
[2017-06-27] MEDS: Dronabinol 2.5mg Cap ORAL SCH ×3 (08:44→17:21)
[2017-06-27] MEDS: Heparin 5000 units/ml inj SUBQ SCH ×2 (08:44→20:47)
[2017-06-27] MEDS: Pantoprazole Inj IV SCH (08:44)
--- NOTE | 2017-06-27 10:36 | GI Progress Note ---
Assessment/Plan Problems: (1) Episode of generalized weakness ICD Codes: R53.1 - Weakness SNOMED: 33840452 (2) Altered mental status ICD Codes: R41.82 - Altered mental status, unspecified SNOMED: 565850082 (3) Affective bipolar disorder ICD Codes: F31.9 - Affective bipolar disorder SNOMED: 93613705 (4) probably multiple sclerosis Status: unchanged Status Narrative Discussed with Dr. Allen. Assessment/Plan dc planning per primary refusing eating Bioethics voted agains PEG marinol added fu psych fu licensed master social worker Subjective Gastrointestinal/Abdominal: Reports: no symptoms Subjective refusing all care Objective Last 24 Hour Vital Signs Date Time Temp Pulse Resp B/P (MAP) Pulse Ox O2 Delivery O2 Flow Rate FiO2 06/27/17 08:35 100.4 108 20 115/57 98 06/27/17 04:00 100.0 104 19 106/58 98 Room Air 06/27/17 00:00 99.5 120 19 96/55 96 Room Air 06/26/17 20:00 97.7 105 18 99 Room Air 06/26/17 16:00 97.7 100 20 93/46 94 06/26/17 11:17 97.7 65 18 112/62 98 Room Air Intake and Output 06/26/17 06/27/17 19:00 07:00 Intake Total 750 ml 375 ml Balance 750 ml 375 ml Intake Oral 0 ml IV Total 750 ml 375 ml # Voids 4 1 Height (Feet): 5 Height (Inches): 4.00 Weight (Pounds): 170 Malgorzata Willis N.P. Jun 27, 2017 10:35
[2017-06-27 11:43] VITALS: BP 91/52
--- NOTE | 2017-06-27 12:29 | Pulmonology Progress Note ---
Assessment/Plan Problems: (1) Malfunction of gastrostomy tube (2) Affective bipolar disorder (3) probably multiple sclerosis Assessment/Plan looks comfortable psych follow up GI f/u dvt prophylaxis symptomatic treatment. ethics recommendations reviewed Subjective ROS Limited/Unobtainable: No Constitutional: Reports: no symptoms HEENT: Repors: no symptoms Respiratory: Reports: no symptoms Allergies: Coded Allergies: No Known Allergies (Unverified , 02/21/14) Objective Last 24 Hour Vital Signs Date Time Temp Pulse Resp B/P (MAP) Pulse Ox O2 Delivery O2 Flow Rate FiO2 06/27/17 11:43 98.6 100 18 91/52 96 06/27/17 08:35 100.4 108 20 115/57 98 06/27/17 04:00 100.0 104 19 106/58 98 Room Air 06/27/17 00:00 99.5 120 19 96/55 96 Room Air 06/26/17 20:00 97.7 105 18 99 Room Air 06/26/17 16:00 97.7 100 20 93/46 94 Intake and Output 06/26/17 06/27/17 19:00 07:00 Intake Total 750 ml 375 ml Balance 750 ml 375 ml Intake Oral 0 ml IV Total 750 ml 375 ml # Voids 4 1 Objective General Appearance: WD/WN HEENT: normocephalic, atraumatic Respiratory/Chest: chest wall non-tender, lungs clear Cardiovascular: normal peripheral pulses, normal rate Abdomen: normal bowel sounds, soft, non tender Genitourinary: normal external genitalia Extremities: no cyanosis Lymphatic: no neck adenopathy Current Medications Medications (Trade) Dose Ordered Sig/Sanju Route PRN Reason Start Time Stop Time Status Last Admin Dose Admin Acetaminophen (Tylenol) 650 mg Q4H PRN ORAL fever 06/16/17 22:00 07/16/17 21:59 Al Hydroxide/Mg Hydroxide (Mylanta II) 30 ml Q6H PRN ORAL dyspepsia 06/16/17 22:00 07/16/17 21:59 Dextrose (Dextrose 50%) STAT PRN IV Hypoglycemia 06/16/17 22:00 07/16/17 21:59 Dextrose/Sodium Chloride 1,000 ml @ 75 mls/hr [id number] IV 06/17/17 01:52 07/17/17 01:51 06/26/17 11:05 Diphenhydramine HCl (Benadryl) 25 mg Q6H PRN ORAL Itching/Pruritis 06/16/17 22:00 07/16/17 21:59 Dronabinol (Marinol) 2.5 mg TID ORAL 06/24/17 09:00 07/24/17 08:59 Haloperidol Decanoate (Haldol) 50 mg [id number] IM 06/17/17 18:00 07/17/17 17:59 06/17/17 18:27 Heparin Sodium (Porcine) (Heparin 5000 units/ml) 5,000 units EVERY 12 HOURS SUBQ 06/17/17 09:00 07/17/17 08:59 06/24/17 09:26 Nitroglycerin (Ntg) 0.4 mg Q5M X 3 DOSES PRN SL Prn Chest Pain 06/16/17 22:00 07/16/17 21:59 Olanzapine (ZyPREXA) 5 mg BID ORAL 06/25/17 09:00 07/25/17 08:59 Ondansetron HCl (Zofran) 4 mg Q6H PRN IVP Nausea & Vomiting 06/16/17 22:00 07/16/17 21:59 Pantoprazole (Protonix) 40 mg DAILY IV 06/17/17 09:00 07/17/17 08:59 06/24/17 09:26 Polyethylene Glycol (Miralax) 17 gm HSPRN PRN ORAL Constipation 06/16/17 22:00 07/16/17 21:59 Promethazine HCl (Phenergan) 25 mg Q8H PRN IV refractory nausea 06/16/17 22:00 07/16/17 21:59 ANGE PAZ Jun 27, 2017 12:29
--- NOTE | 2017-06-27 13:51 | General Progress Note ---
Assessment/Plan Problem List: (1) Episode of generalized weakness ICD Codes: R53.1 - Weakness SNOMED: 07955655 (2) Altered mental status ICD Codes: R41.82 - Altered mental status, unspecified SNOMED: 165069288 (3) Gastrostomy tube dysfunction ICD Codes: K94.23 - Gastrostomy malfunction SNOMED: 543817979 (4) Affective bipolar disorder ICD Codes: F31.9 - Affective bipolar disorder SNOMED: 74187699 (5) probably multiple sclerosis Status: unchanged Assessment/Plan ot pt diet gi f/u psyc tx cbc bmp am [facility] psy[facility] Subjective Constitutional: Reports: weakness Allergies: Coded Allergies: No Known Allergies (Unverified , 02/21/14) All Systems: reviewed and negative except above Subjective confused agitated Objective Last 24 Hour Vital Signs Date Time Temp Pulse Resp B/P (MAP) Pulse Ox O2 Delivery O2 Flow Rate FiO2 06/27/17 11:43 98.6 100 18 91/52 96 06/27/17 08:35 100.4 108 20 115/57 98 06/27/17 04:00 100.0 104 19 106/58 98 Room Air 06/27/17 00:00 99.5 120 19 96/55 96 Room Air 06/26/17 20:00 97.7 105 18 99 Room Air 06/26/17 16:00 97.7 100 20 93/46 94 Intake and Output 06/26/17 06/27/17 19:00 07:00 Intake Total 750 ml 375 ml Balance 750 ml 375 ml Intake Oral 0 ml IV Total 750 ml 375 ml # Voids 4 1 Height (Feet): 5 Height (Inches): 4.00 Weight (Pounds): 170 General Appearance: confused EENT: normal ENT inspection Neck: normal alignment Cardiovascular: normal peripheral pulses, normal rate, regular rhythm Respiratory/Chest: chest wall non-tender, lungs clear, normal breath sounds Abdomen: normal bowel sounds, non tender, soft Extremities: normal inspection Edema: no edema noted Arm (L), no edema noted Arm (R), no edema noted Leg (L), no edema noted Leg (R), no edema noted Pedal (L), no edema noted Pedal (R), no edema noted Generalized Neurologic: motor weakness Skin: normal pigmentation, warm/dry NATHAN BE Jun 27, 2017 13:51
[2017-06-27] MEDS ORDERED: ZYPREXA ZYDIS5 MG ORAL (15:13)
[2017-06-27] MEDS ORDERED: LORAZEPAM2 MG ORAL (15:14)
[2017-06-27] MEDS ORDERED: ACETAMINOP160 MG/5 M ORAL (15:17)
[2017-06-27 16:00] VITALS: BP 97/59
[2017-06-27 20:00] VITALS: BP 114/60
[2017-06-28] VITALS: BP 109/65
[2017-06-28] MEDS: D5 1/2NS 1,000 ML IV SCH ×2 (03:22→17:38)
[2017-06-28 04:00] VITALS: BP 92/59
[2017-06-28 07:51] VITALS: BP 98/63
[2017-06-28] MEDS: Dronabinol 2.5mg Cap ORAL SCH ×3 (08:19→17:38)
[2017-06-28] MEDS: Pantoprazole Inj IV SCH (08:19)
[2017-06-28] MEDS: Heparin 5000 units/ml inj SUBQ SCH ×2 (08:20→21:00)
--- NOTE | 2017-06-28 08:45 | Progress Note ---
DATE: 06/27/2017 NOTE: POOR AUDIO SUBJECTIVE: This is a 46-year-old female patient with G-tube malfunction, but she is still agitated and refusing medications. I saw and assessed her in the room this morning. treatment having agitation. She says "I just want to be left alone" mood labile and irritable. Has very poor insight. MENTAL STATUS EXAMINATION: This is a 46-year-old female with psychomotor agitation. Mood is irritable and agitated. Affect is flat. Thought process is disorganized and illogical. Thought content, paranoid and delusional. She denies any current suicidal or homicidal thoughts. insight and judgment is poor. DIAGNOSIS: Paranoid schizophrenia, acute exacerbation. PLAN: Zyprexa 5 mg per G-tube twice a day, but since she 50 mg IM G-tube leaks. Chart reviewed and discussed with staff. Seen and assessed at the bedside. Supportive therapy provided and also behavioral management. Sivan Banks M.D. DR: HEMANTH JOB#: [id number] CC:
[2017-06-28 11:52] VITALS: BP 104/60
--- NOTE | 2017-06-28 12:56 | GI Progress Note ---
Assessment/Plan Problems: (1) Episode of generalized weakness ICD Codes: R53.1 - Weakness SNOMED: 77587081 (2) Altered mental status ICD Codes: R41.82 - Altered mental status, unspecified SNOMED: 893480274 (3) Affective bipolar disorder ICD Codes: F31.9 - Affective bipolar disorder SNOMED: 71231223 (4) probably multiple sclerosis Status: unchanged Status Narrative Discussed with Dr. Allen. Assessment/Plan dc planning per primary refusing eating Bioethics voted agains PEG marinol added fu psych fu social service worker Subjective Subjective refusing all care Objective Last 24 Hour Vital Signs Date Time Temp Pulse Resp B/P (MAP) Pulse Ox O2 Delivery O2 Flow Rate FiO2 06/28/17 11:52 97.3 75 21 104/60 97 Room Air 06/28/17 07:51 98.3 82 20 98/63 95 Nasal Cannula 2.0 06/28/17 04:00 97.9 83 18 92/59 98 06/28/17 00:00 99.5 97 20 109/65 96 06/27/17 20:00 97.7 104 22 114/60 95 06/27/17 16:00 97.5 98 20 97/59 96 Intake and Output 06/27/17 06/28/17 19:00 07:00 Intake Total 200 ml 1605 ml Balance 200 ml 1605 ml Intake Oral 200 ml 480 ml IV Total 1125 ml # Voids 4 Height (Feet): 5 Height (Inches): 4.00 Weight (Pounds): 170 Malgorzata Willis N.P. Jun 28, 2017 12:56
--- NOTE | 2017-06-28 15:10 | General Progress Note ---
Assessment/Plan Problem List: (1) Episode of generalized weakness ICD Codes: R53.1 - Weakness SNOMED: 63841705 (2) Altered mental status ICD Codes: R41.82 - Altered mental status, unspecified SNOMED: 341017982 (3) Gastrostomy tube dysfunction ICD Codes: K94.23 - Gastrostomy malfunction SNOMED: 964372544 (4) Affective bipolar disorder ICD Codes: F31.9 - Affective bipolar disorder SNOMED: 37380614 (5) probably multiple sclerosis Status: unchanged Assessment/Plan ot pt diet gi f/u psyc tx cbc bmp am [facility] psy[facility] Subjective Allergies: Coded Allergies: No Known Allergies (Unverified , 02/21/14) All Systems: reviewed and negative except above Subjective confused agitated Objective Last 24 Hour Vital Signs Date Time Temp Pulse Resp B/P (MAP) Pulse Ox O2 Delivery O2 Flow Rate FiO2 06/28/17 11:52 97.3 75 21 104/60 97 Room Air 06/28/17 07:51 98.3 82 20 98/63 95 Nasal Cannula 2.0 06/28/17 04:00 97.9 83 18 92/59 98 06/28/17 00:00 99.5 97 20 109/65 96 06/27/17 20:00 97.7 104 22 114/60 95 06/27/17 16:00 97.5 98 20 97/59 96 Intake and Output 06/27/17 06/28/17 19:00 07:00 Intake Total 200 ml 1605 ml Balance 200 ml 1605 ml Intake Oral 200 ml 480 ml IV Total 1125 ml # Voids 4 Height (Feet): 5 Height (Inches): 4.00 Weight (Pounds): 170 General Appearance: lethargic, confused EENT: normal ENT inspection Neck: normal alignment Cardiovascular: normal peripheral pulses, normal rate, regular rhythm Respiratory/Chest: chest wall non-tender, lungs clear, normal breath sounds Abdomen: normal bowel sounds, non tender, soft Extremities: normal inspection Edema: no edema noted Arm (L), no edema noted Arm (R), no edema noted Leg (L), no edema noted Leg (R), no edema noted Pedal (L), no edema noted Pedal (R), no edema noted Generalized Neurologic: motor weakness Skin: normal pigmentation, warm/dry NATHAN BE Jun 28, 2017 15:10
[2017-06-28 16:00] VITALS: BP 108/75
--- NOTE | 2017-06-28 17:01 | Pulmonology Progress Note ---
Assessment/Plan Problems: (1) Malfunction of gastrostomy tube (2) Affective bipolar disorder (3) probably multiple sclerosis Assessment/Plan looks comfortable psych follow up GI f/u dvt prophylaxis symptomatic treatment. ethics recommendations reviewed awaiting placement Subjective ROS Limited/Unobtainable: No Constitutional: Reports: no symptoms HEENT: Repors: no symptoms Allergies: Coded Allergies: No Known Allergies (Unverified , 02/21/14) Objective Last 24 Hour Vital Signs Date Time Temp Pulse Resp B/P (MAP) Pulse Ox O2 Delivery O2 Flow Rate FiO2 06/28/17 16:00 98.6 65 19 108/75 96 06/28/17 11:52 97.3 75 21 104/60 97 Room Air 06/28/17 07:51 98.3 82 20 98/63 95 Nasal Cannula 2.0 06/28/17 04:00 97.9 83 18 92/59 98 06/28/17 00:00 99.5 97 20 109/65 96 06/27/17 20:00 97.7 104 22 114/60 95 Intake and Output 06/27/17 06/28/17 19:00 07:00 Intake Total 200 ml 1605 ml Balance 200 ml 1605 ml Intake Oral 200 ml 480 ml IV Total 1125 ml # Voids 4 Objective General Appearance: WD/WN HEENT: normocephalic, atraumatic Respiratory/Chest: chest wall non-tender, lungs clear Cardiovascular: normal peripheral pulses, normal rate Abdomen: normal bowel sounds, soft, non tender Genitourinary: normal external genitalia Extremities: no cyanosis Lymphatic: no neck adenopathy Current Medications Medications (Trade) Dose Ordered Sig/Sanju Route PRN Reason Start Time Stop Time Status Last Admin Dose Admin Acetaminophen (Tylenol) 650 mg Q4H PRN ORAL fever 06/16/17 22:00 07/16/17 21:59 Al Hydroxide/Mg Hydroxide (Mylanta II) 30 ml Q6H PRN ORAL dyspepsia 06/16/17 22:00 07/16/17 21:59 Dextrose (Dextrose 50%) STAT PRN IV Hypoglycemia 06/16/17 22:00 07/16/17 21:59 Dextrose/Sodium Chloride 1,000 ml @ 75 mls/hr [id number] IV 06/17/17 01:52 07/17/17 01:51 06/28/17 03:22 Diphenhydramine HCl (Benadryl) 25 mg Q6H PRN ORAL Itching/Pruritis 06/16/17 22:00 07/16/17 21:59 Dronabinol (Marinol) 2.5 mg TID ORAL 06/24/17 09:00 07/24/17 08:59 Haloperidol Decanoate (Haldol) 50 mg [id number] IM 06/17/17 18:00 07/17/17 17:59 06/17/17 18:27 Heparin Sodium (Porcine) (Heparin 5000 units/ml) 5,000 units EVERY 12 HOURS SUBQ 06/17/17 09:00 07/17/17 08:59 06/24/17 09:26 Nitroglycerin (Ntg) 0.4 mg Q5M X 3 DOSES PRN SL Prn Chest Pain 06/16/17 22:00 07/16/17 21:59 Olanzapine (ZyPREXA) 5 mg BID ORAL 06/25/17 09:00 07/25/17 08:59 Ondansetron HCl (Zofran) 4 mg Q6H PRN IVP Nausea & Vomiting 06/16/17 22:00 07/16/17 21:59 Pantoprazole (Protonix) 40 mg DAILY IV 06/17/17 09:00 07/17/17 08:59 06/24/17 09:26 Polyethylene Glycol (Miralax) 17 gm HSPRN PRN ORAL Constipation 06/16/17 22:00 07/16/17 21:59 Promethazine HCl (Phenergan) 25 mg Q8H PRN IV refractory nausea 06/16/17 22:00 07/16/17 21:59 ANGE PAZ Jun 28, 2017 17:01
[2017-06-28] MEDS ORDERED: D5 1/2NS 1000ml IV ONE (17:17)
[2017-06-28 20:00] VITALS: BP 103/68
[2017-06-29] VITALS: BP 107/63
[2017-06-29 04:00] VITALS: BP 92/58
[2017-06-29] MEDS: D5 1/2NS 1,000 ML IV SCH ×2 (06:01→20:09)
[2017-06-29 08:07] VITALS: BP 112/65
[2017-06-29] MEDS: Dronabinol 2.5mg Cap ORAL SCH ×3 (08:44→17:58)
[2017-06-29] MEDS: Pantoprazole Inj IV SCH (08:44)
[2017-06-29] MEDS: Heparin 5000 units/ml inj SUBQ SCH ×2 (08:44→21:00)
--- NOTE | 2017-06-29 10:52 | GI Progress Note ---
Assessment/Plan Problems: (1) Episode of generalized weakness ICD Codes: R53.1 - Weakness SNOMED: 23143306 (2) Altered mental status ICD Codes: R41.82 - Altered mental status, unspecified SNOMED: 272683520 (3) Affective bipolar disorder ICD Codes: F31.9 - Affective bipolar disorder SNOMED: 68307459 (4) probably multiple sclerosis Status: unchanged Status Narrative Discussed with Dr. Allen. Assessment/Plan dc planning per primary refusing eating Bioethics voted agains PEG marinol added fu psych fu protective services social worker Subjective Subjective refusing all care Objective Last 24 Hour Vital Signs Date Time Temp Pulse Resp B/P (MAP) Pulse Ox O2 Delivery O2 Flow Rate FiO2 06/29/17 08:07 97.7 59 20 112/65 99 Room Air 06/29/17 04:00 97.6 60 21 92/58 98 06/29/17 04:00 Room Air 06/29/17 00:00 Room Air 06/29/17 00:00 97.8 65 20 107/63 98 06/28/17 20:00 97.7 62 20 103/68 98 06/28/17 20:00 Room Air 06/28/17 16:00 98.6 65 19 108/75 96 06/28/17 11:52 97.3 75 21 104/60 97 Room Air Intake and Output 06/28/17 06/29/17 19:00 07:00 Intake Total 600 ml 825 ml Balance 600 ml 825 ml IV Total 600 ml 825 ml # Voids 3 4 Height (Feet): 5 Height (Inches): 4.00 Weight (Pounds): 170 Malgorzata Willis NBatshevaPBatsheva Jun 29, 2017 10:52
[2017-06-29 11:50] VITALS: BP 112/65
--- NOTE | 2017-06-29 11:51 | General Progress Note ---
Assessment/Plan Problem List: (1) Episode of generalized weakness ICD Codes: R53.1 - Weakness SNOMED: 76076657 (2) Altered mental status ICD Codes: R41.82 - Altered mental status, unspecified SNOMED: 572572841 (3) Gastrostomy tube dysfunction ICD Codes: K94.23 - Gastrostomy malfunction SNOMED: 177380228 (4) Affective bipolar disorder ICD Codes: F31.9 - Affective bipolar disorder SNOMED: 06486605 (5) probably multiple sclerosis Status: unchanged Assessment/Plan ot pt diet gi f/u psyc tx cbc bmp am [facility] Subjective Constitutional: Reports: weakness Allergies: Coded Allergies: No Known Allergies (Unverified , 02/21/14) All Systems: reviewed and negative except above Subjective sleepy calm Objective Last 24 Hour Vital Signs Date Time Temp Pulse Resp B/P (MAP) Pulse Ox O2 Delivery O2 Flow Rate FiO2 06/29/17 08:07 97.7 59 20 112/65 99 Room Air 06/29/17 04:00 97.6 60 21 92/58 98 06/29/17 04:00 Room Air 06/29/17 00:00 Room Air 06/29/17 00:00 97.8 65 20 107/63 98 06/28/17 20:00 97.7 62 20 103/68 98 06/28/17 20:00 Room Air 06/28/17 16:00 98.6 65 19 108/75 96 06/28/17 11:52 97.3 75 21 104/60 97 Room Air Intake and Output 06/28/17 06/29/17 19:00 07:00 Intake Total 600 ml 825 ml Balance 600 ml 825 ml IV Total 600 ml 825 ml # Voids 3 4 Height (Feet): 5 Height (Inches): 4.00 Weight (Pounds): 170 General Appearance: lethargic, confused EENT: normal ENT inspection Neck: normal alignment Cardiovascular: normal peripheral pulses, normal rate, regular rhythm Respiratory/Chest: chest wall non-tender, lungs clear, normal breath sounds Abdomen: normal bowel sounds, non tender, soft Extremities: normal inspection Edema: no edema noted Arm (L), no edema noted Arm (R), no edema noted Leg (L), no edema noted Leg (R), no edema noted Pedal (L), no edema noted Pedal (R), no edema noted Generalized Neurologic: motor weakness Skin: normal pigmentation, warm/dry NATHAN BE Jun 29, 2017 11:51
[2017-06-29 16:00] VITALS: BP 109/67
--- NOTE | 2017-06-29 16:00 | Pulmonology Progress Note ---
Assessment/Plan Problems: (1) Malfunction of gastrostomy tube (2) Affective bipolar disorder (3) probably multiple sclerosis Assessment/Plan looks comfortable psych follow up GI f/u dvt prophylaxis symptomatic treatment. ethics recommendations reviewed awaiting placement Subjective ROS Limited/Unobtainable: No Constitutional: Reports: no symptoms HEENT: Repors: no symptoms Allergies: Coded Allergies: No Known Allergies (Unverified , 02/21/14) Objective Last 24 Hour Vital Signs Date Time Temp Pulse Resp B/P (MAP) Pulse Ox O2 Delivery O2 Flow Rate FiO2 06/29/17 11:50 97.6 63 21 112/65 95 Room Air 06/29/17 08:07 97.7 59 20 112/65 99 Room Air 06/29/17 04:00 97.6 60 21 92/58 98 06/29/17 04:00 Room Air 06/29/17 00:00 Room Air 06/29/17 00:00 97.8 65 20 107/63 98 06/28/17 20:00 97.7 62 20 103/68 98 06/28/17 20:00 Room Air Intake and Output 06/28/17 06/29/17 19:00 07:00 Intake Total 600 ml 825 ml Balance 600 ml 825 ml IV Total 600 ml 825 ml # Voids 3 4 Objective General Appearance: WD/WN HEENT: normocephalic, atraumatic Respiratory/Chest: chest wall non-tender, lungs clear Cardiovascular: normal peripheral pulses, normal rate Abdomen: normal bowel sounds, soft, non tender Genitourinary: normal external genitalia Extremities: no cyanosis Lymphatic: no neck adenopathy Current Medications Medications (Trade) Dose Ordered Sig/Sanju Route PRN Reason Start Time Stop Time Status Last Admin Dose Admin Acetaminophen (Tylenol) 650 mg Q4H PRN ORAL fever 06/16/17 22:00 07/16/17 21:59 Al Hydroxide/Mg Hydroxide (Mylanta II) 30 ml Q6H PRN ORAL dyspepsia 06/16/17 22:00 07/16/17 21:59 Dextrose (Dextrose 50%) STAT PRN IV Hypoglycemia 06/16/17 22:00 07/16/17 21:59 Dextrose/Sodium Chloride 1,000 ml @ 75 mls/hr [id number] IV 06/17/17 01:52 07/17/17 01:51 06/29/17 06:01 Diphenhydramine HCl (Benadryl) 25 mg Q6H PRN ORAL Itching/Pruritis 06/16/17 22:00 07/16/17 21:59 Dronabinol (Marinol) 2.5 mg TID ORAL 06/24/17 09:00 07/24/17 08:59 Haloperidol Decanoate (Haldol) 50 mg [id number] IM 06/17/17 18:00 07/17/17 17:59 06/17/17 18:27 Heparin Sodium (Porcine) (Heparin 5000 units/ml) 5,000 units EVERY 12 HOURS SUBQ 06/17/17 09:00 07/17/17 08:59 06/24/17 09:26 Nitroglycerin (Ntg) 0.4 mg Q5M X 3 DOSES PRN SL Prn Chest Pain 06/16/17 22:00 07/16/17 21:59 Olanzapine (ZyPREXA) 5 mg BID ORAL 06/25/17 09:00 07/25/17 08:59 Ondansetron HCl (Zofran) 4 mg Q6H PRN IVP Nausea & Vomiting 06/16/17 22:00 07/16/17 21:59 Pantoprazole (Protonix) 40 mg DAILY IV 06/17/17 09:00 07/17/17 08:59 06/24/17 09:26 Polyethylene Glycol (Miralax) 17 gm HSPRN PRN ORAL Constipation 06/16/17 22:00 07/16/17 21:59 Promethazine HCl (Phenergan) 25 mg Q8H PRN IV refractory nausea 06/16/17 22:00 07/16/17 21:59 ANGE PAZ Jun 29, 2017 16:00
[2017-06-29 20:00] VITALS: BP 110/65
[2017-06-30] VITALS: BP 102/69
[2017-06-30 04:00] VITALS: BP_SYST 101; BP_SYST 96; BP_DIAS 50; BP_DIAS 53
[2017-06-30 08:00] VITALS: BP 116/44
[2017-06-30] MEDS: Heparin 5000 units/ml inj SUBQ SCH ×2 (09:00→21:00)
[2017-06-30] MEDS: Pantoprazole Inj IV SCH (09:00)
[2017-06-30] MEDS: Dronabinol 2.5mg Cap ORAL SCH ×3 (09:00→17:41)
[2017-06-30] MEDS: D5 1/2NS 1,000 ML IV SCH (09:53)
--- NOTE | 2017-06-30 11:57 | GI Progress Note ---
Assessment/Plan Problems: (1) Episode of generalized weakness ICD Codes: R53.1 - Weakness SNOMED: 09114611 (2) Altered mental status ICD Codes: R41.82 - Altered mental status, unspecified SNOMED: 899501474 (3) Affective bipolar disorder ICD Codes: F31.9 - Affective bipolar disorder SNOMED: 01604319 (4) probably multiple sclerosis Status: not improved, unchanged Status Narrative Discussed with Dr. Allen. Assessment/Plan dc planning per primary refusing eating Bioethics voted agains PEG marinol added fu psych [facility] hospital social worker Subjective Subjective refusing all care Objective Last 24 Hour Vital Signs Date Time Temp Pulse Resp B/P (MAP) Pulse Ox O2 Delivery O2 Flow Rate FiO2 06/30/17 08:00 101.8 100 20 116/44 93 06/30/17 04:00 100.0 102 21 96/50 96 Room Air 06/30/17 04:00 Room Air 06/30/17 04:00 98.7 90 20 101/53 98 Room Air 06/30/17 00:00 98.3 79 19 102/69 98 Room Air 06/30/17 00:00 Room Air 06/29/17 20:00 Room Air 06/29/17 20:00 98.5 59 19 110/65 99 Room Air 06/29/17 16:00 Room Air 06/29/17 16:00 97.7 60 18 109/67 100 Intake and Output 06/29/17 06/30/17 19:00 07:00 Intake Total 900 ml 853 ml Balance 900 ml 853 ml IV Total 900 ml 853 ml # Voids 2 Height (Feet): 5 Height (Inches): 4.00 Weight (Pounds): 170 General Appearance: WD/WN, no apparent distress, alert Cardiovascular: normal rate Respiratory/Chest: normal breath sounds, no respiratory distress Abdominal Exam: normal bowel sounds, non tender, soft Extremities: non-tender Malgorzata Willis N.P. Jun 30, 2017 11:57
[2017-06-30 12:00] VITALS: BP 107/55
--- NOTE | 2017-06-30 15:14 | Pulmonology Progress Note ---
Assessment/Plan Problems: (1) Malfunction of gastrostomy tube (2) Affective bipolar disorder (3) probably multiple sclerosis Assessment/Plan looks comfortable psych follow up GI f/u dvt prophylaxis symptomatic treatment. ethics recommendations reviewed awaiting placement Subjective ROS Limited/Unobtainable: No Constitutional: Reports: no symptoms HEENT: Repors: no symptoms Respiratory: Reports: no symptoms Allergies: Coded Allergies: No Known Allergies (Unverified , 02/21/14) Objective Last 24 Hour Vital Signs Date Time Temp Pulse Resp B/P (MAP) Pulse Ox O2 Delivery O2 Flow Rate FiO2 06/30/17 12:00 101.8 100 20 107/55 100 06/30/17 08:00 101.8 100 20 116/44 93 06/30/17 04:00 100.0 102 21 96/50 96 Room Air 06/30/17 04:00 Room Air 06/30/17 04:00 98.7 90 20 101/53 98 Room Air 06/30/17 00:00 98.3 79 19 102/69 98 Room Air 06/30/17 00:00 Room Air 06/29/17 20:00 Room Air 06/29/17 20:00 98.5 59 19 110/65 99 Room Air 06/29/17 16:00 Room Air 06/29/17 16:00 97.7 60 18 109/67 100 Intake and Output 06/29/17 06/30/17 19:00 07:00 Intake Total 900 ml 928 ml Balance 900 ml 928 ml IV Total 900 ml 928 ml # Voids 2 Objective General Appearance: WD/WN HEENT: normocephalic, atraumatic Respiratory/Chest: chest wall non-tender, lungs clear Cardiovascular: normal peripheral pulses, normal rate Abdomen: normal bowel sounds, soft, non tender Genitourinary: normal external genitalia Extremities: no cyanosis Lymphatic: no neck adenopathy Current Medications Medications (Trade) Dose Ordered Sig/Sanju Route PRN Reason Start Time Stop Time Status Last Admin Dose Admin Acetaminophen (Tylenol) 650 mg Q4H PRN ORAL fever 06/16/17 22:00 07/16/17 21:59 Al Hydroxide/Mg Hydroxide (Mylanta II) 30 ml Q6H PRN ORAL dyspepsia 06/16/17 22:00 07/16/17 21:59 Dextrose (Dextrose 50%) STAT PRN IV Hypoglycemia 06/16/17 22:00 07/16/17 21:59 Dextrose/Sodium Chloride 1,000 ml @ 75 mls/hr [id number] IV 06/17/17 01:52 07/17/17 01:51 06/30/17 09:53 Diphenhydramine HCl (Benadryl) 25 mg Q6H PRN ORAL Itching/Pruritis 06/16/17 22:00 07/16/17 21:59 Dronabinol (Marinol) 2.5 mg TID ORAL 06/24/17 09:00 07/24/17 08:59 Haloperidol Decanoate (Haldol) 50 mg [id number] IM 06/17/17 18:00 07/17/17 17:59 06/17/17 18:27 Heparin Sodium (Porcine) (Heparin 5000 units/ml) 5,000 units EVERY 12 HOURS SUBQ 06/17/17 09:00 07/17/17 08:59 06/24/17 09:26 Nitroglycerin (Ntg) 0.4 mg Q5M X 3 DOSES PRN SL Prn Chest Pain 06/16/17 22:00 07/16/17 21:59 Olanzapine (ZyPREXA) 5 mg BID ORAL 06/25/17 09:00 07/25/17 08:59 Ondansetron HCl (Zofran) 4 mg Q6H PRN IVP Nausea & Vomiting 06/16/17 22:00 07/16/17 21:59 Pantoprazole (Protonix) 40 mg DAILY IV 06/17/17 09:00 07/17/17 08:59 06/24/17 09:26 Polyethylene Glycol (Miralax) 17 gm HSPRN PRN ORAL Constipation 06/16/17 22:00 07/16/17 21:59 Promethazine HCl (Phenergan) 25 mg Q8H PRN IV refractory nausea 06/16/17 22:00 07/16/17 21:59 ANGE PAZ Jun 30, 2017 15:13
[2017-06-30 16:00] VITALS: BP 122/69
--- NOTE | 2017-06-30 16:34 | General Progress Note ---
Assessment/Plan Problem List: (1) Episode of generalized weakness ICD Codes: R53.1 - Weakness SNOMED: 99975409 (2) Altered mental status ICD Codes: R41.82 - Altered mental status, unspecified SNOMED: 671652106 (3) Gastrostomy tube dysfunction ICD Codes: K94.23 - Gastrostomy malfunction SNOMED: 420806369 (4) Affective bipolar disorder ICD Codes: F31.9 - Affective bipolar disorder SNOMED: 77037301 (5) probably multiple sclerosis Status: unchanged Assessment/Plan ot pt diet gi f/u psyc tx cbc bmp am [facility] Subjective Constitutional: Reports: weakness Allergies: Coded Allergies: No Known Allergies (Unverified , 02/21/14) All Systems: reviewed and negative except above Subjective sleepy calm Objective Last 24 Hour Vital Signs Date Time Temp Pulse Resp B/P (MAP) Pulse Ox O2 Delivery O2 Flow Rate FiO2 06/30/17 12:00 101.8 100 20 107/55 100 06/30/17 08:00 101.8 100 20 116/44 93 06/30/17 04:00 100.0 102 21 96/50 96 Room Air 06/30/17 04:00 Room Air 06/30/17 04:00 98.7 90 20 101/53 98 Room Air 06/30/17 00:00 98.3 79 19 102/69 98 Room Air 06/30/17 00:00 Room Air 06/29/17 20:00 Room Air 06/29/17 20:00 98.5 59 19 110/65 99 Room Air Intake and Output 06/29/17 06/30/17 19:00 07:00 Intake Total 900 ml 928 ml Balance 900 ml 928 ml IV Total 900 ml 928 ml # Voids 2 Height (Feet): 5 Height (Inches): 4.00 Weight (Pounds): 170 General Appearance: lethargic EENT: normal ENT inspection Neck: normal alignment Cardiovascular: normal peripheral pulses, normal rate, regular rhythm Respiratory/Chest: chest wall non-tender, lungs clear, normal breath sounds Abdomen: normal bowel sounds, non tender, soft Extremities: normal inspection Edema: no edema noted Arm (L), no edema noted Arm (R), no edema noted Leg (L), no edema noted Leg (R), no edema noted Pedal (L), no edema noted Pedal (R), no edema noted Generalized Neurologic: motor weakness Skin: normal pigmentation, warm/dry NATHAN BE Jun 30, 2017 16:34
[2017-06-30 20:00] VITALS: BP 99/51
[2017-07-01] VITALS (7 sets, daily range): BP systolic 78–112; BP diastolic 44–67
[2017-07-01] MEDS: D5 1/2NS 1,000 ML IV SCH ×2 (00:50→09:53)
[2017-07-01] MEDS: Pantoprazole Inj IV SCH ×2 (09:00→17:24)
[2017-07-01] MEDS: Dronabinol 2.5mg Cap ORAL SCH ×3 (09:00→18:00)
[2017-07-01] MEDS: Heparin 5000 units/ml inj SUBQ SCH ×2 (09:00→21:00)
--- NOTE | 2017-07-01 09:20 | General Progress Note ---
Assessment/Plan Problem List: (1) Episode of generalized weakness ICD Codes: R53.1 - Weakness SNOMED: 04216661 (2) Altered mental status ICD Codes: R41.82 - Altered mental status, unspecified SNOMED: 356271248 (3) Gastrostomy tube dysfunction ICD Codes: K94.23 - Gastrostomy malfunction SNOMED: 886242066 (4) Affective bipolar disorder ICD Codes: F31.9 - Affective bipolar disorder SNOMED: 59860810 (5) probably multiple sclerosis Status: unchanged Assessment/Plan ot pt diet gi f/u psyc tx cbc bmp am [facility] Subjective Constitutional: Reports: weakness Allergies: Coded Allergies: No Known Allergies (Unverified , 02/21/14) All Systems: reviewed and negative except above Subjective sleepy calm Objective Last 24 Hour Vital Signs Date Time Temp Pulse Resp B/P (MAP) Pulse Ox O2 Delivery O2 Flow Rate FiO2 07/01/17 05:03 114 20 96/52 07/01/17 04:24 98.2 109 20 78/48 93 07/01/17 00:00 100.6 121 20 93/44 96 06/30/17 20:00 102.6 128 19 99/51 96 Room Air 06/30/17 16:00 97.7 91 18 122/69 98 06/30/17 12:00 101.8 100 20 107/55 100 Intake and Output 06/30/17 07/01/17 19:00 07:00 Intake Total 900 ml 750 ml Balance 900 ml 750 ml IV Total 900 ml 750 ml # Voids 9 1 Height (Feet): 5 Height (Inches): 4.00 Weight (Pounds): 170 General Appearance: lethargic, confused EENT: normal ENT inspection Neck: normal alignment Cardiovascular: normal peripheral pulses, normal rate, regular rhythm Respiratory/Chest: chest wall non-tender, lungs clear, normal breath sounds Abdomen: normal bowel sounds, non tender, soft Extremities: normal inspection Edema: no edema noted Arm (L), no edema noted Arm (R), no edema noted Leg (L), no edema noted Leg (R), no edema noted Pedal (L), no edema noted Pedal (R), no edema noted Generalized Neurologic: motor weakness Skin: normal pigmentation, warm/dry NATHAN BE Jul 01, 2017 09:20
--- NOTE | 2017-07-01 09:52 | Pulmonology Progress Note ---
Assessment/Plan Problems: (1) Malfunction of gastrostomy tube (2) Affective bipolar disorder (3) probably multiple sclerosis Assessment/Plan looks comfortable psych follow up GI f/u dvt prophylaxis symptomatic treatment. ethics recommendations reviewed awaiting placement no new events refusing care Subjective ROS Limited/Unobtainable: No Constitutional: Reports: no symptoms HEENT: Repors: no symptoms Allergies: Coded Allergies: No Known Allergies (Unverified , 02/21/14) Objective Last 24 Hour Vital Signs Date Time Temp Pulse Resp B/P (MAP) Pulse Ox O2 Delivery O2 Flow Rate FiO2 07/01/17 08:00 97.9 70 20 111/67 100 07/01/17 05:03 114 20 96/52 07/01/17 04:24 98.2 109 20 78/48 93 07/01/17 00:00 100.6 121 20 93/44 96 06/30/17 20:00 102.6 128 19 99/51 96 Room Air 06/30/17 16:00 97.7 91 18 122/69 98 06/30/17 12:00 101.8 100 20 107/55 100 Intake and Output 06/30/17 07/01/17 19:00 07:00 Intake Total 900 ml 750 ml Balance 900 ml 750 ml IV Total 900 ml 750 ml # Voids 9 1 Objective General Appearance: WD/WN HEENT: normocephalic, atraumatic Respiratory/Chest: chest wall non-tender, lungs clear Cardiovascular: normal peripheral pulses, normal rate Abdomen: normal bowel sounds, soft, non tender Genitourinary: normal external genitalia Extremities: no cyanosis Lymphatic: no neck adenopathy Current Medications Medications (Trade) Dose Ordered Sig/Sanju Route PRN Reason Start Time Stop Time Status Last Admin Dose Admin Acetaminophen (Tylenol) 650 mg Q4H PRN ORAL fever 06/16/17 22:00 07/16/17 21:59 Al Hydroxide/Mg Hydroxide (Mylanta II) 30 ml Q6H PRN ORAL dyspepsia 06/16/17 22:00 07/16/17 21:59 Dextrose (Dextrose 50%) STAT PRN IV Hypoglycemia 06/16/17 22:00 07/16/17 21:59 Dextrose/Sodium Chloride 1,000 ml @ 75 mls/hr [id number] IV 06/17/17 01:52 07/17/17 01:51 07/01/17 00:50 Diphenhydramine HCl (Benadryl) 25 mg Q6H PRN ORAL Itching/Pruritis 06/16/17 22:00 07/16/17 21:59 Dronabinol (Marinol) 2.5 mg TID ORAL 06/24/17 09:00 07/24/17 08:59 Haloperidol Decanoate (Haldol) 50 mg [id number] IM 06/17/17 18:00 07/17/17 17:59 06/17/17 18:27 Heparin Sodium (Porcine) (Heparin 5000 units/ml) 5,000 units EVERY 12 HOURS SUBQ 06/17/17 09:00 07/17/17 08:59 06/24/17 09:26 Nitroglycerin (Ntg) 0.4 mg Q5M X 3 DOSES PRN SL Prn Chest Pain 06/16/17 22:00 07/16/17 21:59 Olanzapine (ZyPREXA) 5 mg BID ORAL 06/25/17 09:00 07/25/17 08:59 Ondansetron HCl (Zofran) 4 mg Q6H PRN IVP Nausea & Vomiting 06/16/17 22:00 07/16/17 21:59 Pantoprazole (Protonix) 40 mg DAILY IV 06/17/17 09:00 07/17/17 08:59 06/24/17 09:26 Polyethylene Glycol (Miralax) 17 gm HSPRN PRN ORAL Constipation 06/16/17 22:00 07/16/17 21:59 Promethazine HCl (Phenergan) 25 mg Q8H PRN IV refractory nausea 06/16/17 22:00 07/16/17 21:59 ANGE PAZ Jul 01, 2017 09:52
[2017-07-01] MEDS ORDERED: D5 1/2NS 1000ml IV ONE (16:11)
[2017-07-01] MEDS: Haloperidol Decanoate 50mg Inj IM SCH (17:11)
[2017-07-02] VITALS (9 sets, daily range): BP systolic 82–104; BP diastolic 48–82
[2017-07-02] MEDS: D5 1/2NS 1,000 ML IV SCH (02:19)
--- NOTE | 2017-07-02 07:45 | General Progress Note ---
Assessment/Plan Problem List: (1) Episode of generalized weakness ICD Codes: R53.1 - Weakness SNOMED: 57472967 (2) Altered mental status ICD Codes: R41.82 - Altered mental status, unspecified SNOMED: 156080541 (3) Gastrostomy tube dysfunction ICD Codes: K94.23 - Gastrostomy malfunction SNOMED: 129511477 (4) Affective bipolar disorder ICD Codes: F31.9 - Affective bipolar disorder SNOMED: 60483001 (5) probably multiple sclerosis Status: unchanged Assessment/Plan ot pt diet gi f/u psyc tx cbc bmp am [facility] Subjective Constitutional: Reports: weakness Allergies: Coded Allergies: No Known Allergies (Unverified , 02/21/14) All Systems: reviewed and negative except above Subjective sleepy calm Objective Last 24 Hour Vital Signs Date Time Temp Pulse Resp B/P (MAP) Pulse Ox O2 Delivery O2 Flow Rate FiO2 07/02/17 04:00 103.0 127 20 100/55 96 07/02/17 00:00 99.7 106 20 101/82 99 07/01/17 21:00 100.5 111 07/01/17 20:00 102.3 124 20 90/50 96 07/01/17 16:35 103.8 131 20 112/54 97 Room Air 07/01/17 12:00 102.6 117 20 101/52 100 07/01/17 08:00 97.9 70 20 111/67 100 Intake and Output 07/01/17 07/02/17 19:00 07:00 Intake Total 675 ml 675 ml Balance 675 ml 675 ml IV Total 675 ml 675 ml # Voids 3 Height (Feet): 5 Height (Inches): 4.00 Weight (Pounds): 170 General Appearance: lethargic, confused EENT: normal ENT inspection Neck: normal alignment Cardiovascular: normal peripheral pulses, normal rate, regular rhythm Respiratory/Chest: chest wall non-tender, lungs clear, normal breath sounds Abdomen: normal bowel sounds, non tender, soft Extremities: normal inspection Edema: no edema noted Arm (L), no edema noted Arm (R), no edema noted Leg (L), no edema noted Leg (R), no edema noted Pedal (L), no edema noted Pedal (R), no edema noted Generalized Neurologic: motor weakness Skin: normal pigmentation, warm/dry NATHAN BE Jul 02, 2017 07:45
[2017-07-02] MEDS: Heparin 5000 units/ml inj SUBQ SCH ×2 (09:00→20:14)
[2017-07-02] MEDS: Dronabinol 2.5mg Cap ORAL SCH ×3 (09:00→17:32)
[2017-07-02] MEDS: Pantoprazole Inj IV SCH (09:00)
[2017-07-02] MEDS ORDERED: Sodium Chloride 500ML 500 ML IV ONE (11:15)
[2017-07-02] MEDS ORDERED: D5NS 1,000 ML IV SCH (11:15)
--- NOTE | 2017-07-02 11:27 | Pulmonology Progress Note ---
Assessment/Plan Problems: (1) Malfunction of gastrostomy tube (2) Affective bipolar disorder (3) probably multiple sclerosis Assessment/Plan looks comfortable psych follow up GI f/u dvt prophylaxis symptomatic treatment. ethics recommendations reviewed awaiting placement no new events refusing care Subjective ROS Limited/Unobtainable: Yes Allergies: Coded Allergies: No Known Allergies (Unverified , 02/21/14) Objective Last 24 Hour Vital Signs Date Time Temp Pulse Resp B/P (MAP) Pulse Ox O2 Delivery O2 Flow Rate FiO2 07/02/17 10:00 107 85/53 07/02/17 10:00 112 89/62 07/02/17 08:41 99.5 119 21 82/55 99 07/02/17 08:41 99 Room Air 07/02/17 04:00 103.0 127 20 100/55 96 07/02/17 00:00 99.7 106 20 101/82 99 07/01/17 21:00 100.5 111 07/01/17 20:00 102.3 124 20 90/50 96 07/01/17 16:35 103.8 131 20 112/54 97 Room Air 07/01/17 12:00 102.6 117 20 101/52 100 Intake and Output 07/01/17 07/02/17 19:00 07:00 Intake Total 675 ml 675 ml Balance 675 ml 675 ml IV Total 675 ml 675 ml # Voids 3 Objective General Appearance: WD/WN HEENT: normocephalic, atraumatic Respiratory/Chest: chest wall non-tender, lungs clear Cardiovascular: normal peripheral pulses, normal rate Abdomen: normal bowel sounds, soft, non tender Genitourinary: normal external genitalia Extremities: no cyanosis Lymphatic: no neck adenopathy Current Medications Medications (Trade) Dose Ordered Sig/Sanju Route PRN Reason Start Time Stop Time Status Last Admin Dose Admin Acetaminophen (Tylenol) 650 mg Q4H PRN ORAL fever 06/16/17 22:00 07/16/17 21:59 Al Hydroxide/Mg Hydroxide (Mylanta II) 30 ml Q6H PRN ORAL dyspepsia 06/16/17 22:00 07/16/17 21:59 Dextrose (Dextrose 50%) STAT PRN IV Hypoglycemia 06/16/17 22:00 07/16/17 21:59 Dextrose/Sodium Chloride 1,000 ml @ 75 mls/hr [id number] IV 07/02/17 12:00 08/01/17 11:59 Diphenhydramine HCl (Benadryl) 25 mg Q6H PRN ORAL Itching/Pruritis 06/16/17 22:00 07/16/17 21:59 Dronabinol (Marinol) 2.5 mg TID ORAL 06/24/17 09:00 07/24/17 08:59 Haloperidol Decanoate (Haldol) 50 mg [id number] IM 06/17/17 18:00 07/17/17 17:59 07/01/17 17:11 Heparin Sodium (Porcine) (Heparin 5000 units/ml) 5,000 units EVERY 12 HOURS SUBQ 06/17/17 09:00 07/17/17 08:59 06/24/17 09:26 Nitroglycerin (Ntg) 0.4 mg Q5M X 3 DOSES PRN SL Prn Chest Pain 06/16/17 22:00 07/16/17 21:59 Olanzapine (ZyPREXA) 5 mg BID ORAL 06/25/17 09:00 07/25/17 08:59 Ondansetron HCl (Zofran) 4 mg Q6H PRN IVP Nausea & Vomiting 06/16/17 22:00 07/16/17 21:59 Pantoprazole (Protonix) 40 mg DAILY IV 06/17/17 09:00 07/17/17 08:59 07/01/17 17:24 Polyethylene Glycol (Miralax) 17 gm HSPRN PRN ORAL Constipation 06/16/17 22:00 07/16/17 21:59 Promethazine HCl (Phenergan) 25 mg Q8H PRN IV refractory nausea 06/16/17 22:00 07/16/17 21:59 Sodium Chloride 500 ml @ 999 mls/hr Q31M ONCE IV 07/02/17 11:15 07/02/17 11:45 07/02/17 11:10 ANGE PAZ Jul 02, 2017 11:27
[2017-07-02] MEDS: D5NS 1,000 ML IV SCH (13:31)
--- NOTE | 2017-07-02 14:17 | Progress Note ---
DATE: 07/01/2017 NOTE: POOR AUDIO SUBJECTIVE: This is a 46-year-old female patient with G-tube malfunction, still very agitated and irritable. I saw and assessed her today at bedside. She is still very confused at [facility]. She is still trying to refuse a lot of medications . When I spoke with her about taking medications she is more agitated "Leave me alone" . MENTAL STATUS EXAMINATION: This is a 46-year-old female with psychomotor agitation. Mood is irritable and agitated. Affect is guarded and restricted. Thought process is disorganized and illogical. poor. DIAGNOSIS: Paranoid schizophrenia. PLAN: Continue Zyprexa twice a day and Haldol Decanoate 50 mg IM every two weeks, next dose is today, on 07/01/2017. Chart was reviewed and discussed with staff. Seen and assessed at bedside. Supportive therapy provided. Sivan Banks M.D. DR: Keith JOB#: [id number] CC:
--- NOTE | 2017-07-02 21:03 | Progress Note ---
DATE: 07/02/2017 SUBJECTIVE: The patient is a 46-year-old female patient. She has a malfunctioning G-tube 00:06, but also she has been having agitation, mood lability, intermittently reviewed with pot reliner and did go to the hospital with the nursing staffs trying to consult ever sixth hourly 01:16. So daily psychiatric consultation requested by her attending physician. As far as her agitation, it improved, but is still very confused and disorganized. Mood labile. Still has very poor insight and also very paranoid and delusional. MENTAL STATUS EXAMINATION: This is a 46-year-old female with psychomotor agitation. Mood irritable and agitated. Affect is guarded and restricted. Thought process is disorganized and illogical. Denies 00:43 suicidal or homicidal ideation. Insight and judgment is poor. She has paranoid delusions and 00:49. DIAGNOSIS: Paranoid schizophrenia with acute exacerbation. PLAN: Continue with Zyprexa 5 mg twice a day, also Haldol decanoate 50 mg IM every two weeks. Provide her with behavioral management and supportive therapy. Chart reviewed and discussed with staff. The patient seen and assessed at bedside. Sivan Banks M.D. DR: LACY JOB#: [id number] CC:
[2017-07-03] VITALS: BP 90/54
[2017-07-03] MEDS: D5NS 1,000 ML IV SCH ×2 (02:00→14:39)
[2017-07-03 04:00] VITALS: BP 95/52
[2017-07-03 08:00] VITALS: BP 85/58
[2017-07-03] MEDS: Pantoprazole Inj IV SCH (09:00)
[2017-07-03] MEDS: Heparin 5000 units/ml inj SUBQ SCH ×2 (09:00→20:02)
[2017-07-03] MEDS: Dronabinol 2.5mg Cap ORAL SCH ×3 (09:00→18:00)
--- NOTE | 2017-07-03 10:23 | GI Progress Note ---
Assessment/Plan Problems: (1) Episode of generalized weakness ICD Codes: R53.1 - Weakness SNOMED: 91028602 (2) Altered mental status ICD Codes: R41.82 - Altered mental status, unspecified SNOMED: 549224613 (3) Affective bipolar disorder ICD Codes: F31.9 - Affective bipolar disorder SNOMED: 60615780 (4) probably multiple sclerosis Status: unchanged Status Narrative Discussed with Dr. Allen. 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 Subjective refusing all care Objective Last 24 Hour Vital Signs Date Time Temp Pulse Resp B/P (MAP) Pulse Ox O2 Delivery O2 Flow Rate FiO2 07/03/17 04:00 99.0 103 20 95/52 95 07/03/17 00:00 99.2 114 18 90/54 96 Room Air 07/02/17 20:00 99.8 120 20 97/58 97 07/02/17 15:59 99.2 121 21 104/48 97 07/02/17 15:01 115 86/54 07/02/17 15:00 121 92/59 07/02/17 11:54 98.4 98 20 87/59 98 Intake and Output 07/02/17 07/03/17 19:00 07:00 Intake Total 1137.5 ml 825 ml Balance 1137.5 ml 825 ml Intake Oral 0 ml IV Total 1137.5 ml 825 ml # Voids 4 1 # Bowel Movements 1 Height (Feet): 5 Height (Inches): 4.00 Weight (Pounds): 170 General Appearance: WD/WN, no apparent distress, alert Cardiovascular: normal rate Respiratory/Chest: normal breath sounds, no respiratory distress Abdominal Exam: normal bowel sounds, non tender, soft Extremities: normal range of motion, non-tender Malgorzata Willis N.P. Jul 03, 2017 10:23
[2017-07-03 12:00] VITALS: BP 91/59
--- NOTE | 2017-07-03 13:26 | General Progress Note ---
Assessment/Plan Problem List: (1) Episode of generalized weakness ICD Codes: R53.1 - Weakness SNOMED: 27007398 (2) Altered mental status ICD Codes: R41.82 - Altered mental status, unspecified SNOMED: 934208822 (3) Gastrostomy tube dysfunction ICD Codes: K94.23 - Gastrostomy malfunction SNOMED: 249455412 (4) Affective bipolar disorder ICD Codes: F31.9 - Affective bipolar disorder SNOMED: 65848370 (5) probably multiple sclerosis Status: unchanged Assessment/Plan ot pt diet gi f/u psyc tx cbc bmp am dc if clear Subjective Constitutional: Reports: weakness Allergies: Coded Allergies: No Known Allergies (Unverified , 02/21/14) All Systems: reviewed and negative except above Subjective sleepy calm Objective Last 24 Hour Vital Signs Date Time Temp Pulse Resp B/P (MAP) Pulse Ox O2 Delivery O2 Flow Rate FiO2 07/03/17 08:00 97.6 91 20 85/58 97 07/03/17 04:00 99.0 103 20 95/52 95 07/03/17 00:00 99.2 114 18 90/54 96 Room Air 07/02/17 20:00 99.8 120 20 97/58 97 07/02/17 15:59 99.2 121 21 104/48 97 07/02/17 15:01 115 86/54 07/02/17 15:00 121 92/59 Intake and Output 07/02/17 07/03/17 19:00 07:00 Intake Total 1137.5 ml 825 ml Balance 1137.5 ml 825 ml Intake Oral 0 ml IV Total 1137.5 ml 825 ml # Voids 4 1 # Bowel Movements 1 Height (Feet): 5 Height (Inches): 4.00 Weight (Pounds): 170 General Appearance: lethargic EENT: normal ENT inspection Neck: normal alignment Cardiovascular: normal peripheral pulses, normal rate, regular rhythm Respiratory/Chest: chest wall non-tender, lungs clear, normal breath sounds Abdomen: normal bowel sounds, non tender, soft Extremities: normal inspection Edema: no edema noted Arm (L), no edema noted Arm (R), no edema noted Leg (L), no edema noted Leg (R), no edema noted Pedal (L), no edema noted Pedal (R), no edema noted Generalized Neurologic: motor weakness Skin: normal pigmentation, warm/dry NATHAN BE Jul 03, 2017 13:26
[2017-07-03 16:00] VITALS: BP 103/65
--- NOTE | 2017-07-03 16:10 | Pulmonology Progress Note ---
Assessment/Plan Problems: (1) Malfunction of gastrostomy tube (2) Affective bipolar disorder (3) probably multiple sclerosis Assessment/Plan looks comfortable psych follow up GI f/u dvt prophylaxis symptomatic treatment. ethics recommendations reviewed awaiting placement no new events refusing care Subjective ROS Limited/Unobtainable: No Constitutional: Reports: no symptoms HEENT: Repors: no symptoms Respiratory: Reports: no symptoms Allergies: Coded Allergies: No Known Allergies (Unverified , 02/21/14) Objective Last 24 Hour Vital Signs Date Time Temp Pulse Resp B/P (MAP) Pulse Ox O2 Delivery O2 Flow Rate FiO2 07/03/17 12:00 98.0 90 18 91/59 59 07/03/17 08:00 97.6 91 20 85/58 97 07/03/17 04:00 99.0 103 20 95/52 95 07/03/17 00:00 99.2 114 18 90/54 96 Room Air 07/02/17 20:00 99.8 120 20 97/58 97 Intake and Output 07/02/17 07/03/17 19:00 07:00 Intake Total 1137.5 ml 825 ml Balance 1137.5 ml 825 ml Intake Oral 0 ml IV Total 1137.5 ml 825 ml # Voids 4 1 # Bowel Movements 1 Objective General Appearance: WD/WN HEENT: normocephalic, atraumatic Respiratory/Chest: chest wall non-tender, lungs clear Cardiovascular: normal peripheral pulses, normal rate Abdomen: normal bowel sounds, soft, non tender Genitourinary: normal external genitalia Extremities: no cyanosis Lymphatic: no neck adenopathy Current Medications Medications (Trade) Dose Ordered Sig/Sanju Route PRN Reason Start Time Stop Time Status Last Admin Dose Admin Acetaminophen (Tylenol) 650 mg Q4H PRN ORAL fever 06/16/17 22:00 07/16/17 21:59 Al Hydroxide/Mg Hydroxide (Mylanta II) 30 ml Q6H PRN ORAL dyspepsia 06/16/17 22:00 07/16/17 21:59 Dextrose (Dextrose 50%) STAT PRN IV Hypoglycemia 06/16/17 22:00 07/16/17 21:59 Dextrose/Sodium Chloride 1,000 ml @ 75 mls/hr [id number] IV 07/02/17 12:00 2/27/18 11:59 07/03/17 14:39 Diphenhydramine HCl (Benadryl) 25 mg Q6H PRN ORAL Itching/Pruritis 06/16/17 22:00 07/16/17 21:59 Dronabinol (Marinol) 2.5 mg TID ORAL 06/24/17 09:00 07/24/17 08:59 Haloperidol Decanoate (Haldol) 50 mg [id number] IM 06/17/17 18:00 07/17/17 17:59 07/01/17 17:11 Heparin Sodium (Porcine) (Heparin 5000 units/ml) 5,000 units EVERY 12 HOURS SUBQ 06/17/17 09:00 07/17/17 08:59 06/24/17 09:26 Nitroglycerin (Ntg) 0.4 mg Q5M X 3 DOSES PRN SL Prn Chest Pain 06/16/17 22:00 07/16/17 21:59 Olanzapine (ZyPREXA) 5 mg BID ORAL 06/25/17 09:00 07/25/17 08:59 Ondansetron HCl (Zofran) 4 mg Q6H PRN IVP Nausea & Vomiting 06/16/17 22:00 07/16/17 21:59 Pantoprazole (Protonix) 40 mg DAILY IV 06/17/17 09:00 07/17/17 08:59 07/01/17 17:24 Polyethylene Glycol (Miralax) 17 gm HSPRN PRN ORAL Constipation 06/16/17 22:00 07/16/17 21:59 Promethazine HCl (Phenergan) 25 mg Q8H PRN IV refractory nausea 06/16/17 22:00 07/16/17 21:59 ANGE PAZ Jul 03, 2017 16:10
--- NOTE | 2017-07-03 18:36 | Cardiology Progress Note ---
Assessment/Plan Assessment/Plan The patient is seen and examined, full consult note will be dictated. Objective Last 24 Hour Vital Signs Date Time Temp Pulse Resp B/P (MAP) Pulse Ox O2 Delivery O2 Flow Rate FiO2 07/03/17 16:00 98.9 100 20 103/65 98 07/03/17 12:00 98.0 90 18 91/59 59 07/03/17 12:00 Room Air 07/03/17 08:00 Room Air 07/03/17 08:00 97.6 91 20 85/58 97 07/03/17 04:00 99.0 103 20 95/52 95 07/03/17 00:00 99.2 114 18 90/54 96 Room Air 07/02/17 20:00 99.8 120 20 97/58 97 Intake and Output 07/02/17 07/03/17 19:00 07:00 Intake Total 1137.5 ml 825 ml Balance 1137.5 ml 825 ml Intake Oral 0 ml IV Total 1137.5 ml 825 ml # Voids 4 1 # Bowel Movements 1 MEGHA BOOGIE Jul 03, 2017 18:36
--- NOTE | 2017-07-03 18:45 | Progress Note ---
DATE: 07/03/2017 SUBJECTIVE: This is a 46-year-old female patient with altered mental status, confused, agitated, intermittently refusing treatment, MENTAL STATUS EVALUATION: The patient is a 46-year-old female with psychomotor agitation. Mood is irritable and agitated. Affect guarded, restricted. Thought process, disorganized and illogical. Denies any suicidal or homicidal thoughts. Insight and judgment is poor. DIAGNOSIS: Paranoid schizophrenia. PLAN: Treat with Zyprexa 5 mg twice a day and also Haldol Decanoate 50 mg IM every month. Seen assessed at bedside. Supportive therapy provided. Chart reviewed. Discussed with staff. Seen and assessed at bedside. Sivan Banks M.D. DR: DEE JOB#: [id number] CC:
[2017-07-03 20:00] VITALS: BP 103/61
[2017-07-04] VITALS: BP 102/64
[2017-07-04 04:00] VITALS: BP 95/60
[2017-07-04] MEDS: D5NS 1,000 ML IV SCH ×2 (04:00→18:48)
[2017-07-04 08:00] VITALS: BP 103/64
[2017-07-04] MEDS: Pantoprazole Inj IV SCH (09:00)
[2017-07-04] MEDS: Heparin 5000 units/ml inj SUBQ SCH ×2 (09:00→21:00)
[2017-07-04] MEDS: Dronabinol 2.5mg Cap ORAL SCH ×3 (09:00→18:00)
--- NOTE | 2017-07-04 10:33 | GI Progress Note ---
Assessment/Plan Problems: (1) Episode of generalized weakness ICD Codes: R53.1 - Weakness SNOMED: 66729821 (2) Altered mental status ICD Codes: R41.82 - Altered mental status, unspecified SNOMED: 579052970 (3) Affective bipolar disorder ICD Codes: F31.9 - Affective bipolar disorder SNOMED: 09074948 (4) probably multiple sclerosis Status: unchanged Status Narrative Discussed with Dr. Allen. 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 Subjective Subjective refusing all care Objective Last 24 Hour Vital Signs Date Time Temp Pulse Resp B/P (MAP) Pulse Ox O2 Delivery O2 Flow Rate FiO2 07/04/17 08:00 98.1 95 21 103/64 91 07/04/17 04:00 100.0 106 20 95/60 95 Nasal Cannula 2.0 07/04/17 00:00 101.5 20 102/64 94 07/03/17 20:00 102.5 110 20 103/61 94 07/03/17 16:00 Room Air 07/03/17 16:00 98.9 100 20 103/65 98 07/03/17 12:00 98.0 90 18 91/59 59 07/03/17 12:00 Room Air Intake and Output 07/03/17 07/04/17 19:00 07:00 Intake Total 825 ml 900 ml Balance 825 ml 900 ml IV Total 825 ml 900 ml # Voids 1 1 Height (Feet): 5 Height (Inches): 4.00 Weight (Pounds): 170 General Appearance: no apparent distress Malgorzata Willis N.P. Jul 04, 2017 10:33
[2017-07-04 11:47] VITALS: BP 98/63
--- NOTE | 2017-07-04 12:28 | General Progress Note ---
Assessment/Plan Problem List: (1) Episode of generalized weakness ICD Codes: R53.1 - Weakness SNOMED: 94502318 (2) Altered mental status ICD Codes: R41.82 - Altered mental status, unspecified SNOMED: 989662203 (3) Gastrostomy tube dysfunction ICD Codes: K94.23 - Gastrostomy malfunction SNOMED: 432583421 (4) Affective bipolar disorder ICD Codes: F31.9 - Affective bipolar disorder SNOMED: 25023816 (5) probably multiple sclerosis Status: unchanged Assessment/Plan ot pt diet gi f/u psyc tx cbc bmp am dc if clear Subjective Allergies: Coded Allergies: No Known Allergies (Unverified , 02/21/14) All Systems: reviewed and negative except above Subjective sleepy calm Objective Last 24 Hour Vital Signs Date Time Temp Pulse Resp B/P (MAP) Pulse Ox O2 Delivery O2 Flow Rate FiO2 07/04/17 11:47 98.2 80 20 98/63 100 07/04/17 08:00 98.1 95 21 103/64 91 07/04/17 04:00 100.0 106 20 95/60 95 Nasal Cannula 2.0 07/04/17 00:00 101.5 20 102/64 94 07/03/17 20:00 102.5 110 20 103/61 94 07/03/17 16:00 Room Air 07/03/17 16:00 98.9 100 20 103/65 98 Intake and Output 07/03/17 07/04/17 19:00 07:00 Intake Total 825 ml 900 ml Balance 825 ml 900 ml IV Total 825 ml 900 ml # Voids 1 1 Height (Feet): 5 Height (Inches): 4.00 Weight (Pounds): 170 General Appearance: lethargic EENT: normal ENT inspection Neck: normal alignment Cardiovascular: normal peripheral pulses, normal rate, regular rhythm Respiratory/Chest: chest wall non-tender, lungs clear, normal breath sounds Abdomen: normal bowel sounds, non tender, soft Extremities: normal inspection Edema: no edema noted Arm (L), no edema noted Arm (R), no edema noted Leg (L), no edema noted Leg (R), no edema noted Pedal (L), no edema noted Pedal (R), no edema noted Generalized Neurologic: motor weakness Skin: normal pigmentation, warm/dry NATHAN BE Jul 04, 2017 12:28
[2017-07-04 16:01] VITALS: BP 106/76
--- NOTE | 2017-07-04 17:24 | Pulmonology Progress Note ---
Assessment/Plan Problems: (1) Malfunction of gastrostomy tube (2) Affective bipolar disorder (3) probably multiple sclerosis Assessment/Plan looks comfortable psych follow up GI f/u dvt prophylaxis symptomatic treatment. ethics recommendations reviewed awaiting placement no new events refusing care Subjective ROS Limited/Unobtainable: No Constitutional: Reports: no symptoms HEENT: Repors: no symptoms Respiratory: Reports: no symptoms Allergies: Coded Allergies: No Known Allergies (Unverified , 02/21/14) Objective Last 24 Hour Vital Signs Date Time Temp Pulse Resp B/P (MAP) Pulse Ox O2 Delivery O2 Flow Rate FiO2 07/04/17 16:01 98.1 94 20 106/76 95 07/04/17 11:47 98.2 80 20 98/63 100 07/04/17 08:00 98.1 95 21 103/64 91 07/04/17 04:00 100.0 106 20 95/60 95 Nasal Cannula 2.0 07/04/17 00:00 101.5 20 102/64 94 07/03/17 20:00 102.5 110 20 103/61 94 Intake and Output 07/03/17 07/04/17 19:00 07:00 Intake Total 825 ml 900 ml Balance 825 ml 900 ml IV Total 825 ml 900 ml # Voids 1 1 Objective General Appearance: WD/WN HEENT: normocephalic, atraumatic Respiratory/Chest: chest wall non-tender, lungs clear Cardiovascular: normal peripheral pulses, normal rate Abdomen: normal bowel sounds, soft, non tender Genitourinary: normal external genitalia Extremities: no cyanosis Lymphatic: no neck adenopathy Current Medications Medications (Trade) Dose Ordered Sig/Sanju Route PRN Reason Start Time Stop Time Status Last Admin Dose Admin Acetaminophen (Tylenol) 650 mg Q4H PRN ORAL fever 06/16/17 22:00 07/16/17 21:59 Al Hydroxide/Mg Hydroxide (Mylanta II) 30 ml Q6H PRN ORAL dyspepsia 06/16/17 22:00 07/16/17 21:59 Dextrose (Dextrose 50%) STAT PRN IV Hypoglycemia 06/16/17 22:00 07/16/17 21:59 Dextrose/Sodium Chloride 1,000 ml @ 100 mls/hr Q10H IV 07/04/17 16:00 08/03/17 15:59 Diphenhydramine HCl (Benadryl) 25 mg Q6H PRN ORAL Itching/Pruritis 06/16/17 22:00 07/16/17 21:59 Dronabinol (Marinol) 2.5 mg TID ORAL 06/24/17 09:00 07/24/17 08:59 Haloperidol Decanoate (Haldol) 50 mg [id number] IM 06/17/17 18:00 07/17/17 17:59 07/01/17 17:11 Heparin Sodium (Porcine) (Heparin 5000 units/ml) 5,000 units EVERY 12 HOURS SUBQ 06/17/17 09:00 07/17/17 08:59 06/24/17 09:26 Olanzapine (ZyPREXA) 5 mg BID ORAL 06/25/17 09:00 07/25/17 08:59 Ondansetron HCl (Zofran) 4 mg Q6H PRN IVP Nausea & Vomiting 06/16/17 22:00 07/16/17 21:59 Pantoprazole (Protonix) 40 mg DAILY IV 06/17/17 09:00 07/17/17 08:59 07/01/17 17:24 Polyethylene Glycol (Miralax) 17 gm HSPRN PRN ORAL Constipation 06/16/17 22:00 07/16/17 21:59 Promethazine HCl (Phenergan) 25 mg Q8H PRN IV refractory nausea 06/16/17 22:00 07/16/17 21:59 ANGE PAZ Jul 04, 2017 17:24
[2017-07-04 20:00] VITALS: BP 119/65
[2017-07-05] VITALS: BP 118/59
[2017-07-05] MEDS: D5NS 1,000 ML IV SCH ×4 (02:00→22:15)
[2017-07-05 04:00] VITALS: BP 123/53
[2017-07-05 08:00] VITALS: BP 134/67
[2017-07-05] MEDS: Pantoprazole Inj IV SCH (09:00)
[2017-07-05] MEDS: Dronabinol 2.5mg Cap ORAL SCH ×3 (09:00→18:00)
[2017-07-05] MEDS: Heparin 5000 units/ml inj SUBQ SCH ×2 (09:00→21:00)
--- NOTE | 2017-07-05 11:00 | GI Progress Note ---
Assessment/Plan Problems: (1) Episode of generalized weakness ICD Codes: R53.1 - Weakness SNOMED: 45214251 (2) Altered mental status ICD Codes: R41.82 - Altered mental status, unspecified SNOMED: 980923691 (3) Affective bipolar disorder ICD Codes: F31.9 - Affective bipolar disorder SNOMED: 62160071 (4) probably multiple sclerosis Status: unchanged Status Narrative Discussed with Dr. Allen. 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 Subjective refusing all care Objective Last 24 Hour Vital Signs Date Time Temp Pulse Resp B/P (MAP) Pulse Ox O2 Delivery O2 Flow Rate FiO2 07/05/17 08:00 98.1 75 20 134/67 91 07/05/17 04:00 98.1 79 20 123/53 94 07/05/17 00:00 98.1 81 20 118/59 95 07/04/17 20:00 98.2 78 20 119/65 94 07/04/17 16:01 98.1 94 20 106/76 95 07/04/17 11:47 98.2 80 20 98/63 100 Intake and Output 07/04/17 07/05/17 19:00 07:00 Intake Total 600 ml 1320 ml Balance 600 ml 1320 ml IV Total 600 ml 1320 ml # Voids 2 2 Height (Feet): 5 Height (Inches): 4.00 Weight (Pounds): 170 General Appearance: WD/WN, no apparent distress, alert Cardiovascular: normal rate Respiratory/Chest: normal breath sounds, no respiratory distress Abdominal Exam: normal bowel sounds, non tender, soft Extremities: normal range of motion, non-tender Malgorzata Willis N.Claudia Jul 05, 2017 11:00
[2017-07-05 12:00] VITALS: BP 131/68
--- NOTE | 2017-07-05 13:38 | General Progress Note ---
Assessment/Plan Problem List: (1) Episode of generalized weakness ICD Codes: R53.1 - Weakness SNOMED: 80209117 (2) Altered mental status ICD Codes: R41.82 - Altered mental status, unspecified SNOMED: 292340997 (3) Gastrostomy tube dysfunction ICD Codes: K94.23 - Gastrostomy malfunction SNOMED: 509320837 (4) Affective bipolar disorder ICD Codes: F31.9 - Affective bipolar disorder SNOMED: 65036311 (5) probably multiple sclerosis Status: unchanged Assessment/Plan ot pt diet gi f/u psyc tx cbc bmp am dc if clear Subjective Constitutional: Reports: weakness Allergies: Coded Allergies: No Known Allergies (Unverified , 02/21/14) All Systems: reviewed and negative except above Subjective sleepy calm Objective Last 24 Hour Vital Signs Date Time Temp Pulse Resp B/P (MAP) Pulse Ox O2 Delivery O2 Flow Rate FiO2 07/05/17 12:00 97.7 69 20 131/68 93 07/05/17 08:00 98.1 75 20 134/67 91 07/05/17 04:00 98.1 79 20 123/53 94 07/05/17 00:00 98.1 81 20 118/59 95 07/04/17 20:00 98.2 78 20 119/65 94 07/04/17 16:01 98.1 94 20 106/76 95 Intake and Output 07/04/17 07/05/17 19:00 07:00 Intake Total 600 ml 1320 ml Balance 600 ml 1320 ml IV Total 600 ml 1320 ml # Voids 2 2 Height (Feet): 5 Height (Inches): 4.00 Weight (Pounds): 170 General Appearance: lethargic EENT: normal ENT inspection Neck: normal alignment Cardiovascular: normal peripheral pulses, normal rate, regular rhythm Respiratory/Chest: chest wall non-tender, lungs clear, normal breath sounds Abdomen: normal bowel sounds, non tender, soft Extremities: normal inspection Edema: no edema noted Arm (L), no edema noted Arm (R), no edema noted Leg (L), no edema noted Leg (R), no edema noted Pedal (L), no edema noted Pedal (R), no edema noted Generalized Neurologic: motor weakness Skin: normal pigmentation, warm/dry NATHAN BE Jul 05, 2017 13:38
[2017-07-05 16:00] VITALS: BP 134/67
--- NOTE | 2017-07-05 18:30 | Pulmonology Progress Note ---
Assessment/Plan Problems: (1) Malfunction of gastrostomy tube (2) Affective bipolar disorder (3) probably multiple sclerosis Assessment/Plan iv lfuid running looks comfortable psych follow up GI f/u dvt prophylaxis symptomatic treatment. ethics recommendations reviewed awaiting placement no new events refusing care Subjective ROS Limited/Unobtainable: No Constitutional: Reports: no symptoms HEENT: Repors: no symptoms Allergies: Coded Allergies: No Known Allergies (Unverified , 02/21/14) Objective Last 24 Hour Vital Signs Date Time Temp Pulse Resp B/P (MAP) Pulse Ox O2 Delivery O2 Flow Rate FiO2 07/05/17 16:00 97.5 68 20 134/67 92 07/05/17 12:00 97.7 69 20 131/68 93 07/05/17 08:00 98.1 75 20 134/67 91 07/05/17 04:00 98.1 79 20 123/53 94 07/05/17 00:00 98.1 81 20 118/59 95 07/04/17 20:00 98.2 78 20 119/65 94 Intake and Output 07/04/17 07/05/17 19:00 07:00 Intake Total 600 ml 1320 ml Balance 600 ml 1320 ml IV Total 600 ml 1320 ml # Voids 2 2 Objective General Appearance: WD/WN HEENT: normocephalic, atraumatic Respiratory/Chest: chest wall non-tender, lungs clear Cardiovascular: normal peripheral pulses, normal rate Abdomen: normal bowel sounds, soft, non tender Genitourinary: normal external genitalia Extremities: no cyanosis Lymphatic: no neck adenopathy Current Medications Medications (Trade) Dose Ordered Sig/Sanju Route PRN Reason Start Time Stop Time Status Last Admin Dose Admin Acetaminophen (Tylenol) 650 mg Q4H PRN ORAL fever 06/16/17 22:00 07/16/17 21:59 Al Hydroxide/Mg Hydroxide (Mylanta II) 30 ml Q6H PRN ORAL dyspepsia 06/16/17 22:00 07/16/17 21:59 Dextrose (Dextrose 50%) STAT PRN IV Hypoglycemia 06/16/17 22:00 07/16/17 21:59 Dextrose/Sodium Chloride 1,000 ml @ 100 mls/hr Q10H IV 07/04/17 16:00 08/03/17 15:59 07/05/17 12:09 Diphenhydramine HCl (Benadryl) 25 mg Q6H PRN ORAL Itching/Pruritis 06/16/17 22:00 07/16/17 21:59 Dronabinol (Marinol) 2.5 mg TID ORAL 06/24/17 09:00 07/24/17 08:59 Haloperidol Decanoate (Haldol) 50 mg [id number] IM 06/17/17 18:00 07/17/17 17:59 07/01/17 17:11 Heparin Sodium (Porcine) (Heparin 5000 units/ml) 5,000 units EVERY 12 HOURS SUBQ 06/17/17 09:00 07/17/17 08:59 06/24/17 09:26 Olanzapine (ZyPREXA) 5 mg BID ORAL 06/25/17 09:00 07/25/17 08:59 Ondansetron HCl (Zofran) 4 mg Q6H PRN IVP Nausea & Vomiting 06/16/17 22:00 07/16/17 21:59 Pantoprazole (Protonix) 40 mg DAILY IV 06/17/17 09:00 07/17/17 08:59 07/01/17 17:24 Polyethylene Glycol (Miralax) 17 gm HSPRN PRN ORAL Constipation 06/16/17 22:00 07/16/17 21:59 Promethazine HCl (Phenergan) 25 mg Q8H PRN IV refractory nausea 06/16/17 22:00 07/16/17 21:59 ANGE PAZ Jul 05, 2017 18:30
[2017-07-05 20:00] VITALS: BP 123/58
--- NOTE | 2017-07-05 23:15 | Progress Note ---
DATE: 07/04/2017 SUBJECTIVE: This is a 46-year-old female patient. She has a G-tube malfunction. She continues to have some confusion, disorganized thought process, and mood liability. This patient continues to have some agitation. I saw and assessed at bedside. She is very isolative, very guarded on the interview. "Leave me alone, I don't want to anything" what she said on interview today. MENTAL STATUS EXAMINATION: This is a 46-year-old female, psychomotor agitation. Mood is irritable and agitated. Affect guarded and restricted. Thought process is disorganized and illogical. She cannot contract for safety as far as suicidal or homicidal thoughts. Her insight and judgment is poor. DIAGNOSIS: Paranoid schizophrenia with acute exacerbation. PLAN: Treat this patient with Zyprexa 5 mg twice a day and Haldol decanoate 50 mg IM q.2 weeks since she has a history of med noncompliance. Provide her with supportive therapy and she will continue to be followed by Psychiatry throughout hospital course. Chart was reviewed and discussed with staff. The patient was seen and assessed at bedside. Sivan Banks M.D. DR: Keith JOB#: [id number] CC:
[2017-07-06] VITALS: BP 114/51
--- NOTE | 2017-07-06 03:00 | Consultation ---
DATE OF CONSULTATION: 07/03/2017 CARDIOLOGY CONSULTATION REFERRING PHYSICIAN: Jose L Mcginnis D.O. REASON FOR CONSULTATION: Management of tachycardia. HISTORY OF PRESENT ILLNESS: This is a very unfortunate 46-year-old female, who is admitted to the hospital on 06/16/2017 for a malfunction G-tube. She was transferred from nursing facility for G-tube replacement. She has underlying paranoid schizophrenia and depression and at this time is not answering to my questions. Cardiology consultation was made at request of Dr. Mcginnis for management of tachycardia in this patient. On arrival to the emergency department, she had heart rate of 108. She had a laboratory data taken at the time of arrival to hospital and was admitted to Medical/Surgical unit. In the course of her hospitalization on 07/02/2017, she developed low blood pressure with blood pressure as low as 86/54 mmHg. Cardiology consultation was made at request of Dr. Mcginnis to address tachycardia as well as hypotension. At the time of my call to the nursing station on the Medical/Surgical floor, a bolus of 500 mL NS was ordered. She continued to be hypotensive throughout the course of 07/02/2017 evening as well as the morning of the 07/03/2017 up to this moment. As mentioned above, she is not providing any history at this time. PAST MEDICAL HISTORY: Significant for; 1. History of paranoid schizophrenia. 2. History of depression. 3. History of dysphagia, status post G-tube replacement. 4. History of encephalopathy. 5. History of gastroesophageal reflux disease. PAST SURGICAL HISTORY: PEG placement. MEDICATIONS: List of medication at the nursing facility included acetaminophen 600 mg G-tube q.6 h., lactulose 30 mL G-tube three times a day, lorazepam 2 mg G-tube q.6 h. p.r.n. agitation, lorazepam 2 mg q.6 h. p.r.n. agitation, multivitamin liquid 5 mL G-tube daily, Zyprexa 5 mg G-tube twice daily, Zyprexa 2.5 mg G-tube daily, and sertraline 5 mg G-tube daily. SOCIAL HISTORY: No current use of tobacco, alcohol or illicit drug use. FAMILY HISTORY: History of no premature coronary artery disease or arrhythmogenic in the first-degree relatives. REVIEW OF SYSTEMS: A 12-system review done essentially negative except what mentioned in the history of present illness. The patient is nonverbal at this time. PHYSICAL EXAMINATION: GENERAL: The patient is a very unfortunate 46-year-old female, who is not communicating verbally, in no apparent respiratory distress. VITAL SIGNS: Blood pressure was 85/58, heart rate of 103, respirations of 20, O2 saturation 95% on room air and temperature 99 degrees Fahrenheit. HEENT: Atraumatic and normocephalic. Anicteric. Pupils are equal, round, and reactive to light and accommodation. There is presence of a vitiliginous skin eruptions around the mouth. NECK: Cannot be assessed. No carotid bruit. CARDIOVASCULAR: Normal S1 and S2. Regular rhythm. Tachycardic. No murmurs, gallops, or rubs. LUNGS: Diminished breath sounds in both bases. ABDOMEN: Soft, nontender, and nondistended. Positive bowel sounds. Presence of a G-tube. EXTREMITIES: No evidence of edema, clubbing, or cyanosis. LABORATORY AND DIAGNOSTIC DATA: Labs from 06/18/2017, WBC 9.5, hemoglobin 11.5, hematocrit 34.3, and platelet count of 371. Sodium is 138, potassium is 3.4, chloride 104, bicarbonate 25, BUN of 12, creatinine 0.7 and glucose is 92. Calcium is 8.7. ASSESSMENT AND PLAN: The patient is a very unfortunate 46-year-old lady seen in Cardiology consultation at the request of Dr. Mcginnis. 1. Hypotension, possible etiologies could be dehydration versus septic shock. We would like to continue with the D5 normal saline at 75 mL/hour. She received IV bolus normal saline. I would not consider nitroglycerin with this low blood pressure and the fact that her complaints of chest pain could be probably noncardiac. I would hold on nitroglycerin. We will obtain 2D echocardiography for assessment of left ventricular systolic and diastolic function. 2. Sinus tachycardia, most likely due to hypotension. treatment of this is the treatment of the underlying etiology. We will continue monitoring her vital signs while she is in the Medical/Surgical unit. 3. Further therapeutic and diagnostic decision will be based on results of 2D echocardiography. I would like to thank, Dr. Mcginnis, for the courtesy of this consultation. Ino Krishnan M.D. DR: FER JOB#: [id number] CC:
[2017-07-06 04:45] VITALS: BP 107/59
[2017-07-06 08:00] VITALS: BP 148/64
[2017-07-06] MEDS: D5NS 1,000 ML IV SCH ×3 (08:17→23:00)
[2017-07-06] MEDS: Pantoprazole Inj IV SCH (08:23)
[2017-07-06] MEDS: Dronabinol 2.5mg Cap ORAL SCH ×3 (08:24→18:00)
[2017-07-06] MEDS: Heparin 5000 units/ml inj SUBQ SCH ×2 (08:25→21:00)
--- NOTE | 2017-07-06 10:48 | GI Progress Note ---
Assessment/Plan Problems: (1) Episode of generalized weakness ICD Codes: R53.1 - Weakness SNOMED: 78684381 (2) Altered mental status ICD Codes: R41.82 - Altered mental status, unspecified SNOMED: 302526758 (3) Affective bipolar disorder ICD Codes: F31.9 - Affective bipolar disorder SNOMED: 92505405 (4) probably multiple sclerosis Status: unchanged Status Narrative Discussed with Dr. Allen. Assessment/Plan Bioethics voted agains PEG dc planning per primary refusing eating marinol added fu psych fu rn social work Subjective Subjective refusing all care Objective Last 24 Hour Vital Signs Date Time Temp Pulse Resp B/P (MAP) Pulse Ox O2 Delivery O2 Flow Rate FiO2 07/06/17 08:00 100.4 95 20 148/64 94 07/06/17 04:45 99.7 99 18 107/59 96 07/06/17 04:00 Room Air 07/06/17 00:00 101.7 115 20 114/51 91 07/06/17 00:00 Room Air 07/05/17 21:30 98.0 Room Air 07/05/17 20:00 100.2 102 20 123/58 94 07/05/17 16:00 97.5 68 20 134/67 92 07/05/17 12:00 97.7 69 20 131/68 93 Intake and Output 07/05/17 07/06/17 19:00 07:00 Intake Total 600 ml Balance 600 ml IV Total 600 ml # Voids 2 2 Height (Feet): 5 Height (Inches): 4.00 Weight (Pounds): 170 General Appearance: no apparent distress, alert Cardiovascular: regular rhythm Respiratory/Chest: no respiratory distress Malgorzata Willis N.P. Jul 06, 2017 10:48
[2017-07-06 12:00] VITALS: BP 130/57
--- NOTE | 2017-07-06 12:20 | Cardiology Progress Note ---
Assessment/Plan Assessment/Plan 1. Hypotension, possible etiologies could be dehydration versus septic shock, continue hydration. She received IV bolus normal saline. Awaiting 2D echocardiography report. 2. Sinus tachycardia, most likely due to hypotension/hypovolemia, ? due to decreased GT feedings, would avoid AV eugenio agents at this time, adequate hydration. 3. GT malfunction. Subjective Subjective Not verbally communicating. No active cardiac issues. Objective Last 24 Hour Vital Signs Date Time Temp Pulse Resp B/P (MAP) Pulse Ox O2 Delivery O2 Flow Rate FiO2 07/06/17 08:00 100.4 95 20 148/64 94 07/06/17 04:45 99.7 99 18 107/59 96 07/06/17 04:00 Room Air 07/06/17 00:00 101.7 115 20 114/51 91 07/06/17 00:00 Room Air 07/05/17 21:30 98.0 Room Air 07/05/17 20:00 100.2 102 20 123/58 94 07/05/17 16:00 97.5 68 20 134/67 92 Intake and Output 07/05/17 07/06/17 19:00 07:00 Intake Total 600 ml Balance 600 ml IV Total 600 ml # Voids 2 2 Objective HEENT: Atraumatic and normocephalic. Anicteric. Pupils are equal, round, and reactive to light and accommodation. There is presence of a vitiliginous skin eruptions around the mouth. NECK: Cannot be assessed. No carotid bruit. CARDIOVASCULAR: Normal S1 and S2. Regular rhythm. Tachycardic. No murmurs, gallops, or rubs. LUNGS: Diminished breath sounds in both bases. ABDOMEN: Soft, nontender, and nondistended. Positive bowel sounds. Presence of a G-tube. EXTREMITIES: No evidence of edema, clubbing, or cyanosis. MEGHA BOOGIE Jul 06, 2017 12:20
--- NOTE | 2017-07-06 13:27 | General Progress Note ---
Assessment/Plan Problem List: (1) Episode of generalized weakness ICD Codes: R53.1 - Weakness SNOMED: 07880606 (2) Altered mental status ICD Codes: R41.82 - Altered mental status, unspecified SNOMED: 679964883 (3) Gastrostomy tube dysfunction ICD Codes: K94.23 - Gastrostomy malfunction SNOMED: 070500301 (4) Affective bipolar disorder ICD Codes: F31.9 - Affective bipolar disorder SNOMED: 60900566 (5) probably multiple sclerosis Status: unchanged Assessment/Plan ot pt diet gi f/u psyc tx cbc bmp am dc if clear Subjective Constitutional: Reports: weakness Allergies: Coded Allergies: No Known Allergies (Unverified , 02/21/14) All Systems: reviewed and negative except above Subjective sleepy calm Objective Last 24 Hour Vital Signs Date Time Temp Pulse Resp B/P (MAP) Pulse Ox O2 Delivery O2 Flow Rate FiO2 07/06/17 12:00 100.2 100 20 130/57 93 07/06/17 08:00 100.4 95 20 148/64 94 07/06/17 04:45 99.7 99 18 107/59 96 07/06/17 04:00 Room Air 07/06/17 00:00 101.7 115 20 114/51 91 07/06/17 00:00 Room Air 07/05/17 21:30 98.0 Room Air 07/05/17 20:00 100.2 102 20 123/58 94 07/05/17 16:00 97.5 68 20 134/67 92 Intake and Output 07/05/17 07/06/17 19:00 07:00 Intake Total 600 ml Balance 600 ml IV Total 600 ml # Voids 2 2 Height (Feet): 5 Height (Inches): 4.00 Weight (Pounds): 170 General Appearance: lethargic, confused EENT: normal ENT inspection Neck: normal alignment Cardiovascular: normal peripheral pulses, normal rate, regular rhythm Respiratory/Chest: chest wall non-tender, lungs clear, normal breath sounds Abdomen: normal bowel sounds, non tender, soft Extremities: normal inspection Edema: no edema noted Arm (L), no edema noted Arm (R), no edema noted Leg (L), no edema noted Leg (R), no edema noted Pedal (L), no edema noted Pedal (R), no edema noted Generalized Neurologic: motor weakness Skin: normal pigmentation, warm/dry NATHAN BE Jul 06, 2017 13:27
[2017-07-06 16:00] VITALS: BP 121/58
--- NOTE | 2017-07-06 19:06 | Pulmonology Progress Note ---
Assessment/Plan Problems: (1) Malfunction of gastrostomy tube (2) Affective bipolar disorder (3) probably multiple sclerosis Assessment/Plan iv lfuid running looks comfortable psych follow up symptomatic treatment. ethics recommendations reviewed refusing care hospice requested by Dr Mcginnis, consents signed by two physicians, including Dr. Harvey and me. Subjective ROS Limited/Unobtainable: No Constitutional: Reports: no symptoms HEENT: Repors: no symptoms Allergies: Coded Allergies: No Known Allergies (Unverified , 02/21/14) Objective Last 24 Hour Vital Signs Date Time Temp Pulse Resp B/P (MAP) Pulse Ox O2 Delivery O2 Flow Rate FiO2 07/06/17 16:00 97.3 94 20 121/58 92 07/06/17 12:00 100.2 100 20 130/57 93 07/06/17 08:00 100.4 95 20 148/64 94 07/06/17 04:45 99.7 99 18 107/59 96 07/06/17 04:00 Room Air 07/06/17 00:00 101.7 115 20 114/51 91 07/06/17 00:00 Room Air 07/05/17 21:30 98.0 Room Air 07/05/17 20:00 100.2 102 20 123/58 94 Intake and Output 07/05/17 07/06/17 19:00 07:00 Intake Total 600 ml Balance 600 ml IV Total 600 ml # Voids 2 2 Objective General Appearance: WD/WN HEENT: normocephalic, atraumatic Respiratory/Chest: chest wall non-tender, lungs clear Cardiovascular: normal peripheral pulses, normal rate Abdomen: normal bowel sounds, soft, non tender Genitourinary: normal external genitalia Extremities: no cyanosis Lymphatic: no neck adenopathy Current Medications Medications (Trade) Dose Ordered Sig/Sanju Route PRN Reason Start Time Stop Time Status Last Admin Dose Admin Acetaminophen (Tylenol) 650 mg Q4H PRN ORAL fever 06/16/17 22:00 07/16/17 21:59 Al Hydroxide/Mg Hydroxide (Mylanta II) 30 ml Q6H PRN ORAL dyspepsia 06/16/17 22:00 07/16/17 21:59 Dextrose (Dextrose 50%) STAT PRN IV Hypoglycemia 06/16/17 22:00 07/16/17 21:59 Dextrose/Sodium Chloride 1,000 ml @ 100 mls/hr Q10H IV 07/04/17 16:00 08/03/17 15:59 07/06/17 08:17 Diphenhydramine HCl (Benadryl) 25 mg Q6H PRN ORAL Itching/Pruritis 06/16/17 22:00 07/16/17 21:59 Dronabinol (Marinol) 2.5 mg TID ORAL 06/24/17 09:00 07/24/17 08:59 Haloperidol Decanoate (Haldol) 50 mg [id number] IM 06/17/17 18:00 07/17/17 17:59 07/01/17 17:11 Heparin Sodium (Porcine) (Heparin 5000 units/ml) 5,000 units EVERY 12 HOURS SUBQ 06/17/17 09:00 07/17/17 08:59 06/24/17 09:26 Olanzapine (ZyPREXA) 5 mg BID ORAL 06/25/17 09:00 07/25/17 08:59 Ondansetron HCl (Zofran) 4 mg Q6H PRN IVP Nausea & Vomiting 06/16/17 22:00 07/16/17 21:59 Pantoprazole (Protonix) 40 mg DAILY IV 06/17/17 09:00 07/17/17 08:59 07/01/17 17:24 Polyethylene Glycol (Miralax) 17 gm HSPRN PRN ORAL Constipation 06/16/17 22:00 07/16/17 21:59 Promethazine HCl (Phenergan) 25 mg Q8H PRN IV refractory nausea 06/16/17 22:00 07/16/17 21:59 ANGE PAZ Jul 06, 2017 19:06
[2017-07-06 20:00] VITALS: BP 112/59
[2017-07-07] VITALS: BP 116/59
[2017-07-07 04:00] VITALS: BP 118/64
--- NOTE | 2017-07-07 08:08 | Pulmonology Progress Note ---
Assessment/Plan Assessment/Plan ASSESSMENT Paranoid schizophrenia with acute exacerbation Noncompliance G tube malfunction( pulled out) Probable MS ( based on prior imaging) PLAN OF CARE MS floor earlier pulled out GT declined any interventions: NGT, GT, labs, refusing to eat often Psych follows psych deemed incapable to make any informed decisions Psych meds optimized, pt not taking usually Pending transfer to psych facility when medically stable GI follows, suspected psychogenic cause of anorexia and not physical, patient gets anxious when trying to talk to her about consequences of not eating and danger of malnutrition Bioethics voted against PEG placement PT/OT Symptomatic treatment, awaiting for placement case discussed and evaluated by supervising physician Subjective Allergies: Coded Allergies: No Known Allergies (Unverified , 02/21/14) Subjective admits to not eating denies food, blood draw, NG/GT placement denies CP SOB, palpitations non-ambulatory continues to deny all care Objective Last 24 Hour Vital Signs Date Time Temp Pulse Resp B/P (MAP) Pulse Ox O2 Delivery O2 Flow Rate FiO2 07/07/17 04:00 98.1 91 20 118/64 94 07/07/17 00:00 100.4 109 20 116/59 93 07/06/17 20:00 99.4 101 20 112/59 93 07/06/17 16:00 Room Air 07/06/17 16:00 97.3 94 20 121/58 92 07/06/17 12:00 100.2 100 20 130/57 93 07/06/17 12:00 Room Air Intake and Output 07/06/17 07/07/17 19:00 07:00 Intake Total 1100 ml 700 ml Balance 1100 ml 700 ml Intake Oral 0 ml IV Total 1100 ml 700 ml # Voids 4 2 Objective General Appearance: no acute distress, awake, alert, responsive, poor eye contact, AA bedridden female in NAD HEENT: normocephalic, atraumatic, anicteric Respiratory/Chest: lungs clear, no respiratory distress, no accessory muscle use Cardiovascular: normal rate, regular rhythm, no JVD Abdomen: normal bowel sounds, soft, non tender, other - old G tube site healing Neurologic/Psychiatric: bedridden , alert, responsive with poor eye contact , moves all extremities Musculoskeletal: atrophy - BLE Current Medications Medications (Trade) Dose Ordered Sig/Sanju Route PRN Reason Start Time Stop Time Status Last Admin Dose Admin Acetaminophen (Tylenol) 650 mg Q4H PRN ORAL fever 06/16/17 22:00 07/16/17 21:59 Al Hydroxide/Mg Hydroxide (Mylanta II) 30 ml Q6H PRN ORAL dyspepsia 06/16/17 22:00 07/16/17 21:59 Dextrose (Dextrose 50%) STAT PRN IV Hypoglycemia 06/16/17 22:00 07/16/17 21:59 Dextrose/Sodium Chloride 1,000 ml @ 100 mls/hr Q10H IV 07/04/17 16:00 08/03/17 15:59 07/06/17 23:00 Diphenhydramine HCl (Benadryl) 25 mg Q6H PRN ORAL Itching/Pruritis 06/16/17 22:00 07/16/17 21:59 Dronabinol (Marinol) 2.5 mg TID ORAL 06/24/17 09:00 07/24/17 08:59 Haloperidol Decanoate (Haldol) 50 mg [id number] IM 06/17/17 18:00 07/17/17 17:59 07/01/17 17:11 Heparin Sodium (Porcine) (Heparin 5000 units/ml) 5,000 units EVERY 12 HOURS SUBQ 06/17/17 09:00 07/17/17 08:59 06/24/17 09:26 Olanzapine (ZyPREXA) 5 mg BID ORAL 06/25/17 09:00 07/25/17 08:59 Ondansetron HCl (Zofran) 4 mg Q6H PRN IVP Nausea & Vomiting 06/16/17 22:00 07/16/17 21:59 Pantoprazole (Protonix) 40 mg DAILY IV 06/17/17 09:00 07/17/17 08:59 07/01/17 17:24 Polyethylene Glycol (Miralax) 17 gm HSPRN PRN ORAL Constipation 06/16/17 22:00 07/16/17 21:59 Promethazine HCl (Phenergan) 25 mg Q8H PRN IV refractory nausea 06/16/17 22:00 07/16/17 21:59 Brooke Del Angel NP (Vanchtein) Jul 07, 2017 08:08
[2017-07-07 08:12] VITALS: BP 121/66
[2017-07-07] MEDS: Dronabinol 2.5mg Cap ORAL SCH ×3 (09:00→18:00)
[2017-07-07] MEDS: Pantoprazole Inj IV SCH (09:00)
[2017-07-07] MEDS: Heparin 5000 units/ml inj SUBQ SCH (09:00)
--- NOTE | 2017-07-07 11:27 | General Progress Note ---
Assessment/Plan Problem List: (1) Episode of generalized weakness ICD Codes: R53.1 - Weakness SNOMED: 88866595 (2) Altered mental status ICD Codes: R41.82 - Altered mental status, unspecified SNOMED: 697732866 (3) Gastrostomy tube dysfunction ICD Codes: K94.23 - Gastrostomy malfunction SNOMED: 828396585 (4) Affective bipolar disorder ICD Codes: F31.9 - Affective bipolar disorder SNOMED: 97087796 (5) probably multiple sclerosis Status: unchanged Assessment/Plan ot pt diet gi f/u psyc tx cbc bmp am ? hospice Subjective Constitutional: Reports: weakness Allergies: Coded Allergies: No Known Allergies (Unverified , 02/21/14) All Systems: reviewed and negative except above Subjective sleepy calm Objective Last 24 Hour Vital Signs Date Time Temp Pulse Resp B/P (MAP) Pulse Ox O2 Delivery O2 Flow Rate FiO2 07/07/17 08:12 98.0 88 19 121/66 99 Room Air 07/07/17 04:00 98.1 91 20 118/64 94 07/07/17 00:00 100.4 109 20 116/59 93 07/06/17 20:00 99.4 101 20 112/59 93 07/06/17 16:00 Room Air 07/06/17 16:00 97.3 94 20 121/58 92 07/06/17 12:00 100.2 100 20 130/57 93 07/06/17 12:00 Room Air Intake and Output 07/06/17 07/07/17 19:00 07:00 Intake Total 1100 ml 700 ml Balance 1100 ml 700 ml Intake Oral 0 ml IV Total 1100 ml 700 ml # Voids 4 2 Height (Feet): 5 Height (Inches): 4.00 Weight (Pounds): 170 General Appearance: lethargic, confused EENT: normal ENT inspection Neck: normal alignment Cardiovascular: normal peripheral pulses, normal rate, regular rhythm Respiratory/Chest: chest wall non-tender, lungs clear, normal breath sounds Abdomen: normal bowel sounds, non tender, soft Extremities: normal inspection Edema: no edema noted Arm (L), no edema noted Arm (R), no edema noted Leg (L), no edema noted Leg (R), no edema noted Pedal (L), no edema noted Pedal (R), no edema noted Generalized Neurologic: motor weakness Skin: normal pigmentation, warm/dry NATHAN BE Jul 07, 2017 11:27
--- NOTE | 2017-07-07 11:30 | GI Progress Note ---
Assessment/Plan Problems: (1) Episode of generalized weakness ICD Codes: R53.1 - Weakness SNOMED: 44515690 (2) Altered mental status ICD Codes: R41.82 - Altered mental status, unspecified SNOMED: 125387845 (3) Affective bipolar disorder ICD Codes: F31.9 - Affective bipolar disorder SNOMED: 14305804 (4) probably multiple sclerosis Status: unchanged Status Narrative Discussed with Dr. Allen. Assessment/Plan Bioethics voted agains PEG dc planning per primary refusing eating marinol added fu psych fu director of social services Subjective Subjective refusing all care Objective Last 24 Hour Vital Signs Date Time Temp Pulse Resp B/P (MAP) Pulse Ox O2 Delivery O2 Flow Rate FiO2 07/07/17 08:12 98.0 88 19 121/66 99 Room Air 07/07/17 04:00 98.1 91 20 118/64 94 07/07/17 00:00 100.4 109 20 116/59 93 07/06/17 20:00 99.4 101 20 112/59 93 07/06/17 16:00 Room Air 07/06/17 16:00 97.3 94 20 121/58 92 07/06/17 12:00 100.2 100 20 130/57 93 07/06/17 12:00 Room Air Intake and Output 07/06/17 07/07/17 19:00 07:00 Intake Total 1100 ml 700 ml Balance 1100 ml 700 ml Intake Oral 0 ml IV Total 1100 ml 700 ml # Voids 4 2 Height (Feet): 5 Height (Inches): 4.00 Weight (Pounds): 170 General Appearance: WD/WN, no apparent distress, alert Cardiovascular: normal rate Respiratory/Chest: normal breath sounds, no respiratory distress Abdominal Exam: normal bowel sounds, non tender, soft Malgorzata Willis N.P. Jul 07, 2017 11:30
[2017-07-07 12:00] VITALS: BP 124/61
[2017-07-07] MEDS: D5NS 1,000 ML IV SCH (12:15)
--- NOTE | 2017-07-07 12:56 | Progress Note ---
DATE: 07/05/2017 NOTE: POOR AUDIO SUBJECTIVE: The patient is a 50-year-old female patient. She is admitted to the hospital, continues disorganized at [facility], agitated, intermittently refusing treatment. . Disorganized thought process and mood lability. She also has agitation, irritability and mood lability, that is why she does require daily psychiatric consultation. Her attending physician has requested daily psychiatric consultation to help stabilize mood and agitation. MENTAL STATUS EXAMINATION: The patient is a 46-year-old female with psychomotor agitation. Mood irritable, agitated. Affect guarded, restricted. Thought process disorganized and illogical. She . DIAGNOSIS: Paranoid schizophrenia with acute exacerbation. PLAN: Treat her with Zyprexa 5 mg twice a day and Haldol decanoate 50 mg IM q.2 weeks. Provide her with supportive therapy. . Seen and assessed at bedside. Chart reviewed. Discussed with staff. Supportive therapy provided. Sivan Banks M.D. DR: DEE JOB#: [id number] CC:
[2017-07-07 15:55] VITALS: BP 140/59
[2017-07-07] MEDS ORDERED: [UNRECOGNIZED DRUG - OTHER] IV (18:13)
[2017-07-07] MEDS ORDERED: NS 500ML ONE (18:48)
[2017-07-07] MEDS ORDERED: Tubing IV Secondary IV ONE (18:48)
[2017-07-07] MEDS ORDERED: D5NS 1000ml IV ONE (18:48)
--- NOTE | 2017-07-08 | Progress Note ---
SUBJECTIVE: The patient is a 46-year-old female patient with G-tube malfunction. This is a female patient. She is confused and disorganized. Mood labile. Agitated, irritable, and has very poor insight with paranoia, intermittently refusing treatment. MENTAL STATUS EXAMINATION: A 46-year-old female with psychomotor agitation. Mood is irritable and agitated. Affect guarded and restricted. Thought process is disorganized and illogical. No signs of any suicidal or homicidal thought process. Insight and judgment poor. DIAGNOSIS: Paranoid schizophrenia. PLAN: Treat her with Zyprexa 5 twice a day. Haldol decanoate 50 mg IM every 2 weeks. Provide her with supportive therapy. Seen and assessed at bedside. Chart reviewed and discussed with staff. Supportive therapy provided. Sivan Banks M.D. DR: MINOO JOB#: [id number] CC:
--- NOTE | 2017-07-08 02:45 | Progress Note ---
DATE: 07/06/2017 SUBJECTIVE: This is a 46-year-old female patient with G-tube malfunction. She has some confusion and disorganized thought process and mood lability, racing thoughts and pressured speech. MENTAL STATUS EXAMINATION: This is a 46-year-old female, psychomotor agitation. Mood is irritable and agitated. Affect is guarded and restricted. Thought process disorganized and illogical. No signs of any suicidal or homicidal thoughts. . Thought content, auditory hallucinations, paranoid delusions. Insight and judgment is poor. DIAGNOSIS: Paranoid schizophrenia with acute exacerbation. PLAN: Treat her with Zyprexa 5 mg twice a day and also Haldol decanoate 50 mg IM q.2 weeks. Supportive therapy provided for 16 minutes. Chart reviewed and discussed with staff. Seen and assessed in the room. Supportive therapy provided. Sivan Banks M.D. DR: LACY JOB#: [id number] CC:
--- NOTE | 2017-07-11 08:34 | Discharge Summary ---
Discharge Summary Hospital Course Date of Admission Jun 16, 2017 at 21:45 Date of Discharge Jul 07, 2017 at 19:20 Admitting Diagnosis G-tube malfunction HPI Nimisha Gallagher is a 46 year old female who was admitted on Jun 16, 2017 at 21: 45 for G Tube Malfunction Hospital Course dc summary#[id number] Discharge Medications New Medications: Dextrose/Electrolyte Soln (D5%-1/2Ns-KCl 10 Meq/l IV Ayesha) 10 Meq/1000 Ml Iv.soln 1000 ML IV EVERY 12 HOURS for 10 Days, BAG Continued Medications: Acetaminophen 160MG/5ML* (Acetaminophen*) 160 Mg/5 Ml Elixir 10 ML ORAL THREE TIMES A DAY for Fever/Headache/Mild Pain, ML Lorazepam* (Lorazepam*) 2 Mg Tablet 2 MG ORAL EVERY 6 HOURS PRN for Agitation, TAB Olanzapine Zydis* (Zyprexa Zydis*) 5 Mg Tab.rapdis 5 MG ORAL BID, #30 TAB 0 Refills Discharge Condition Upon Discharge: stable Discharge Disposition Patient was discharged to SNF/Subacute Facility(03) Discharge Diagnoses: Bean (Tiffaniedarci)Brooke NP Jul 11, 2017 08:34
--- NOTE | 2017-07-12 02:30 | Discharge Summary 2 SIG ---
DATE OF ADMISSION: 06/16/2017 DATE OF DISCHARGE: 07/07/2017 REASON FOR ADMISSION: 46-year-old female with past medical history significant for paranoid schizophrenia, depression, dysphagia, G-tube, encephalopathy, GERD, probable multiple sclerosis ( based on prior imaging), presented for G-tube replacement. Apparently, the patient pulled out her G-tube at the residential facility, where she resides. The patient appeared to be on presentation angry, alert, and not cooperative. She stated that she did not want to put G-tube in and she would pull it out again if it would be placed against her will. Upon evaluation in the emergency room, the patient was slightly tachycardic -108 , pulse oximetry was stable on room air, low-grade fever - 99.7. The patient was admitted with diagnoses of G-tube malfunction, psychiatric disorder, encephalopathy, bipolar disorder, generalized weakness. HOSPITAL COURSE: The patient was admitted. GI and psychiatric consults were requested along with dietary evaluation, PT and OT. The patient declined any intervention. She declined NG tube and G tube placement. Patient declined any further blood draw. She was refusing to eat often. GI followed. GI suspected psychogenic cause of anorexia and not physical. Marinol was added to existing regimen. The patient was getting anxious when doctors were trying to talk to her about consequences of not eating and danger of malnutrition. Psychiatric evaluation was requested, and after careful evaluation psychiatrist made the patient incompetent of making any medical decision. Subsequently, Bioethics consult was requested to comment on whether the G-tube should be placed on this patient, who was deemed incompetent by psychiatrist to make medical decision for herself. Bioethics committee took into consideration the following facts: 1.the patient was unwilling to take any oral feeding and was on the IV fluids, which she accepted; 2. she stated her previous G-tube was hurting and she will pull out another G- tube if it would be placed against her will: 3. the patient appeared angry and aggressive. Ethics Committee decided that the G-tube should not be placed at this time. The risk of the procedure was very small, however, medical risk was not worth accepting if she would promptly pull out the tube. Per Bioethics, the [facility] should [facility] and then go to facility where they have medical psych unit where the issue of a feeding tube could be further explored and resolved after her psych issue would be controlled. Vocational Teacher has seen and evaluated the patient for hypotension. According to cotton breeder, hypotension was likely due to dehydration along with mild sinus tachycardia. The patient was on the IV fluids throughout the stay in the hospital. Prior to discharge blood pressure -140/59, heart rate between 80s and 110. Vital signs stable. The patient refused any lab draws from 06/18/2017. Vocational Teacher ordered 2D Echo. The patient declined 2D Echo as well. Per cotton breeder, unlikely any cardiac issues exist. Psychiatrist deemed the patient incapable to make any informed decision, as mentioned above. Psychiatrist closely followed. Psychiatric medication regimen optimized, however, usually the patient was not taking any medication. Initially, plan was to transfer the patient to psychiatric facility when medically stable. When Bioethics voted against PEG, symptomatic treatment provided and to residential facility for close monitoring and further management. FINAL DIAGNOSES: 1. Paranoid schizophrenia with acute exacerbation. 2. Noncompliance. 3. Gastrostomy tube malfunction. 4. Hypotension. 5. Probable multiple sclerosis (based on prior images). DISCHARGE MEDICATIONS: See medication reconciliation list. DISCHARGE INSTRUCTIONS: The patient was discharged to residential facility for further care. Jose L Mcginnis D.O. Brooke JuarezCapital District Psychiatric CenterHay N.PBatsheva DR: Mario JOB#: [id number] CC: JES
== END 2017-07-07 19:20 | DRG 393 ==
LOC: EDBD 19:58 → EMR 20:30 → 4E 21:45 → EDBEDREQ 06-17 00:45 → 4E 06-21 12:35
DX: K94.23 Gastrostomy malfunction (principal); G93.40 Encephalopathy, unspecified; F20.0 Paranoid schizophrenia; I95.9 Hypotension, unspecified; G35 Multiple sclerosis; R13.10 Dysphagia, unspecified; Y83.3 Surgical operation with formation of external stoma as the cause of abnormal reaction of the patient, or of later complication, without mention of misadventure at the time of the procedure; F31.9 Bipolar disorder, unspecified; R45.1 Restlessness and agitation; K21.9 Gastro-esophageal reflux disease without esophagitis; R00.0 Tachycardia, unspecified; Z91.19 Patient's noncompliance with other medical treatment and regimen; R41.82 Altered mental status, unspecified; Z53.20 Procedure and treatment not carried out because of patient's decision for unspecified reasons
CPT/HCPCS: 36415; 76700; 80048; 85025; 97803; 99284; 99285